=== PATIENT | female | born 1965 | race Caucasian/White ===

== ENCOUNTER 2022-04-13 08:14 | Observation (INO) ==
--- NOTE | 2022-03-19 12:03 | PAT Medication Instructions ---
Medication Instructions Date of Service March 19, 2022 Home Medications [facility] 1 dose QID Medical Marijuana Card 1 dose UD PRN ANXIETY/PAIN albuterol sulfate 90 mcg/actuation aerosol inhaler 1 inh inhalation UD PRN allergies bupropion HCl 300 mg 24 hr tablet, extended release 450 mg PO QAM buspirone 15 mg tablet 15 mg PO QAM buspirone 30 mg tablet 30 mg PO QAM clonazepam 1 mg tablet (Klonopin) 0.5 - 1 mg PO BID cyclosporine 0.05 % eye drops in a dropperette (Restasis) 1 drp ophthalmic (eye) BID dextroamphetamine-amphetamine 10 mg tablet (Adderall) 10 mg PO DAILY dextroamphetamine-amphetamine 30 mg tablet (Adderall) 30 mg PO QAM ergocalciferol (vitamin D2) 1,250 mcg (50,000 unit) capsule (Vitamin D2) 1,250 mcg PO DAILY erythromycin 5 mg/gram (0.5 %) eye ointment 1 applic ophthalmic (eye) BID fluticasone 250 mcg-salmeterol 50 mcg/dose blistr powdr for inhalation (Advair Diskus) 1 inh inhalation BID fluticasone propionate 50 mcg/actuation nasal spray,suspension (Flonase Allergy Relief) 1 spray intranasal QAM gabapentin 300 mg capsule 300 mg PO TID hydrochlorothiazide 25 mg tablet 25 mg PO QAM hydroxyurea 500 mg capsule 500 mg PO BID hydroxyzine HCl 25 mg tablet 25 mg PO TID PRN Anxiety loratadine 10 mg tablet (Claritin) 10 mg PO UD PRN allergies montelukast 10 mg tablet 10 mg PO QAM olopatadine 0.2 % eye drops 1 drp ophthalmic (eye) QAM pantoprazole 40 mg tablet,delayed release 40 mg PO QAM tizanidine 4 mg tablet 4 mg PO Q8H PRN muscle spasms trazodone 100 mg tablet 150 mg PO HS Take morning of surgery With a small sip of water, OTHERWISE NOTHING TO EAT OR DRINK AFTER MIDNIGHT: Insulin Dependent Diabetic Patients * Test your blood sugar the morning of surgery * If Blood Sugar is GREATER THAN 150, take HALF of your regular dose of: * If Blood Sugar is LESS THAN 150, DO NOT TAKE ANY: Other Notes If you have any questions please call us at [phone] or [phone] or [phone] or [phone]
--- NOTE | 2022-03-19 13:45 | PAT Medication Instructions ---
Medication Instructions Date of Service March 19, 2022 Home Medications Medical Marijuana Card 1 dose UD PRN ANXIETY/PAIN albuterol sulfate 90 mcg/actuation aerosol inhaler 1 inh inhalation UD PRN allergies bupropion HCl 300 mg 24 hr tablet, extended release 450 mg PO QAM ] buspirone 15 mg tablet 15 mg PO QAM buspirone 30 mg tablet 30 mg PO QAM clonazepam 1 mg tablet (Klonopin) 0.5 - 1 mg PO BID cyclosporine 0.05 % eye drops in a dropperette (Restasis) 1 drp ophthalmic (eye) BID dextroamphetamine-amphetamine 10 mg tablet (Adderall) 10 mg PO DAILY dextroamphetamine-amphetamine 30 mg tablet (Adderall) 30 mg PO QAM ergocalciferol (vitamin D2) 1,250 mcg (50,000 unit) capsule (Vitamin D2) 1,250 mcg PO DAILY erythromycin 5 mg/gram (0.5 %) eye ointment 1 applic ophthalmic (eye) BID fluticasone 250 mcg-salmeterol 50 mcg/dose blistr powdr for inhalation (Advair Diskus) 1 inh inhalation BID fluticasone propionate 50 mcg/actuation nasal spray,suspension (Flonase Allergy Relief) 1 spray intranasal QAM gabapentin 300 mg capsule 300 mg PO TID hydrochlorothiazide 25 mg tablet 25 mg PO QAM hydroxyurea 500 mg capsule 500 mg PO BID hydroxyzine HCl 25 mg tablet 25 mg PO TID PRN Anxiety loratadine 10 mg tablet (Claritin) 10 mg PO UD PRN allergies montelukast 10 mg tablet 10 mg PO QAM olopatadine 0.2 % eye drops 1 drp ophthalmic (eye) QAM pantoprazole 40 mg tablet,delayed release 40 mg PO QAM tizanidine 4 mg tablet 4 mg PO Q8H PRN muscle spasms trazodone 100 mg tablet 150 mg PO HS ASK your prescriber and surgeon hydroxyurea 500 mg capsule 500 mg PO BID DO NOT take the morning of surgery Medical Marijuana Card 1 dose UD PRN ANXIETY/PAIN dextroamphetamine-amphetamine 10 mg tablet (Adderall) 10 mg PO DAILY dextroamphetamine-amphetamine 30 mg tablet (Adderall) 30 mg PO QAM ergocalciferol (vitamin D2) 1,250 mcg (50,000 unit) capsule (Vitamin D2) 1,250 mcg PO DAILY hydrochlorothiazide 25 mg tablet 25 mg PO QAM hydroxyzine HCl 25 mg tablet 25 mg PO TID PRN Anxiety loratadine 10 mg tablet (Claritin) 10 mg PO UD PRN allergies tizanidine 4 mg tablet 4 mg PO Q8H PRN muscle spasms Take morning of surgery With a small sip of water, OTHERWISE NOTHING TO EAT OR DRINK AFTER MIDNIGHT: albuterol sulfate 90 mcg/actuation aerosol inhaler 1 inh inhalation UD PRN yany rgies (use if needed; please bring with you to hospital day of surgery if possible) bupropion HCl 300 mg 24 hr tablet, extended release 450 mg PO QAM buspirone 15 mg tablet 15 mg PO QAM buspirone 30 mg tablet 30 mg PO QAM clonazepam 1 mg tablet (Klonopin) 0.5 - 1 mg PO BID cyclosporine 0.05 % eye drops in a dropperette (Restasis) 1 drp ophthalmic (eye) BID erythromycin 5 mg/gram (0.5 %) eye ointment 1 applic ophthalmic (eye) BID fluticasone 250 mcg-salmeterol 50 mcg/dose blistr powdr for inhalation (Advair Diskus) 1 inh inhalation BID fluticasone propionate 50 mcg/actuation nasal spray,suspension (Flonase Allergy Relief) 1 spray intranasal QAM gabapentin 300 mg capsule 300 mg PO TID montelukast 10 mg tablet 10 mg PO QAM olopatadine 0.2 % eye drops 1 drp ophthalmic (eye) QAM pantoprazole 40 mg tablet,delayed release 40 mg PO QAM Take evening before surgery Medical Marijuana Card 1 dose UD PRN ANXIETY/PAIN (if needed) albuterol sulfate 90 mcg/actuation aerosol inhaler 1 inh inhalation UD PRN allergies (if needed) clonazepam 1 mg tablet (Klonopin) 0.5 - 1 mg PO BID cyclosporine 0.05 % eye drops in a dropperette (Restasis) 1 drp ophthalmic (eye) BID erythromycin 5 mg/gram (0.5 %) eye ointment 1 applic ophthalmic (eye) BID fluticasone 250 mcg-salmeterol 50 mcg/dose blistr powdr for inhalation (Advair Diskus) 1 inh inhalation BID gabapentin 300 mg capsule 300 mg PO TID hydroxyzine HCl 25 mg tablet 25 mg PO TID PRN Anxiety (if needed) loratadine 10 mg tablet (Claritin) 10 mg PO UD PRN allergies (if needed) tizanidine 4 mg tablet 4 mg PO Q8H PRN muscle spasms (if needed) trazodone 100 mg tablet 150 mg PO HS Other Notes If you have any questions please call us at [phone] or [phone] or [phone] or [phone]
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
[~2022-04-13 08:14] MED LIST: ACETAMINOPHEN 500 MG TAB PO SCH; BUPIVACAINE 0.5 % 5 MG/1 ML PF 10ML VIAL ONE; EPINEPHrine INJ 1 MG/ML AMP ONE; FAMOTIDINE 20 MG TAB PO SCH; LR 60ML/HR IV SCH; ROPIVACAINE 0.5% 5 MG/ML 30 ML VIAL ONE; ROPIVACAINE 0.5% HCL/PF 150 MG, BUPIVACAINE 0.75% MPF 20 ML, EPINEPHrine 0.15 MG, Ketor... INFIL SCH; Scopolamine 1 MG TDSY TD SCH; TRANEXAMIC ACID 1,000 MG **IV Intra-op IV SCH; TRANEXAMIC ACID 1,000 MG **IV Pre-op IV SCH; ceFAZolin 2000MG 2,000 MG/15 ML SYR IV SCH; dexAMETHasone 4 MG TAB PO SCH; traMADol HCL 50 MG TABLET PO SCH
[2022-04-13] MEDS ORDERED: HYDROmorphone INJ 1 MG/ML SYRINGE IV PRN (10:13)
[2022-04-13] MEDS ORDERED: ATROPINE SULFATE 0.1 MG/ML 10ML SYR IV PRN (10:13)
[2022-04-13] MEDS ORDERED: PROMETHAZINE HCL 12.5 MG in SODIUM CHLORIDE 0.9% 50 ML IV PRN (10:13)
[2022-04-13] MEDS ORDERED: ONDANSETRON INJ 2 MG/ML 2 ML VIAL IV PRN ×2 (10:13→15:31)
[2022-04-13] MEDS ORDERED: fentaNYL citrate 100 MCG/2 ML VIAL IV PRN (10:13)
[2022-04-13] MEDS ORDERED: ePHEDrine sulfate 50 MG/ML AMP IV PRN (10:13)
[2022-04-13] MEDS ORDERED: FLUMAZENIL 0.1 MG/1 ML 10 ML VIAL IV PRN (10:13)
[2022-04-13] MEDS ORDERED: NALOXONE HCL 0.4 MG/1 ML VIAL/CARP IV PRN ×2 (10:13→15:31)
[2022-04-13] MEDS ORDERED: LABETALOL HCL IV 5 MG/ML 20ML IV PRN (10:13)
[2022-04-13] MEDS ORDERED: MIDAZOLAM HCL 1 MG/ML 2ML VIAL ONE ×2 (10:27)
[2022-04-13] MEDS ORDERED: HYDROmorphone INJ 2 MG/ML SYR/VIAL ONE ×2 (10:27→12:16)
[2022-04-13] MEDS ORDERED: LIDOCAINE 2% MPF LOCAL 5 ML VIAL INFIL ONE (10:27)
[2022-04-13] MEDS ORDERED: DEXAMETHASONE SOD INJ 4 MG/ML VIAL ONE (10:27)
[2022-04-13] MEDS ORDERED: ONDANSETRON INJ 2 MG/ML 2 ML VIAL ONE (10:27)
[2022-04-13] MEDS ORDERED: PROPOFOL IV EMULSION 10 MG/ML 20 ML VIAL IV ONE ×2 (10:27→13:26)
--- NOTE | 2022-04-13 10:53 | History & Physical Bridge Note ---
Date of Service April 13, 2022 History & Physical Bridge Note I have examined the patient, reviewed the History & Physical and in the interval since the performance of the History & Physical I have noted the following changes of clinical significance: no changes noted Patient is aware of the risks, is asymptomatic, and tested negative for COVID- 19.
[2022-04-13] MEDS ORDERED: ORTHO JOINT ANESTHETIC ONE (10:59)
[2022-04-13] MEDS ORDERED: KETAMINE 50 MG/5 ML SYRINGE ONE (12:05)
[2022-04-13] MEDS ORDERED: LABETALOL HCL IV 5 MG/ML 20ML IV ONE (12:26)
[2022-04-13] MEDS ORDERED: ESMOLOL HCL INJ 10 MG/ML 10ML VIAL IV ONE (12:30)
[2022-04-13] MEDS ORDERED: DexMEDEtomidine HCL IV 100 MCG/ML VIAL IV ONE (13:35)
--- NOTE | 2022-04-13 13:52 | Post Operative Brief Note ---
Immediate Post Op Note v1 Date of Surgery April 13, 2022 Pre & Post Diagnosis Operation Date: 04/13/22 10:00 Pre-Op Diagnosis: Left Knee Osteoarthritis Post-Op Diagnosis: Left Knee Osteoarthritis I identified the patient and participated in the time-out.: Yes Procedure Operation Date: 04/13/22 10:00 Actual Procedures p Left Total Knee Arthroplasty(Left) - Bert Méndez MD Surgeon Bert Méndez MD Grain Receiver C ZENIA Bill (No fellow avail) Estimated Blood Loss 175 Findings Consistent with Post-Op Diagnosis Fluids 1300 cc Specimens Left knee contents Anesthesia Type General Regional Complications none
--- NOTE | 2022-04-13 13:53 | Operative Report ---
Post Operative Report Pre & Post Diagnosis Operation Date: 04/13/22 10:00 Pre-Op Diagnosis: Left Knee Osteoarthritis Post-Op Diagnosis: Left Knee Osteoarthritis I identified the patient and participated in the time-out.: Yes Procedure Operation Date: 04/13/22 10:00 Actual Procedures p Left Total knee replacement, imageless computer assisted navigation(Left) - Bert Méndez MD Surgeon Bert Méndez MD [employer] Art Teacher Sunny Bill PA-C (No fellow avail) Estimated Blood Loss 175 Findings See Below Examined Under Anesthesia: ROM -- There was 5 degrees to 120 degrees of flexion Ligamentous examination -- revealed stable Mayo, posterior drawer, varus and valgus stress at 5 and 30 degrees. [place] Grade IV changes of Patellofemoral and medial compartments, Grade II-III changes lateral femoral condyle. There was significant inflamed synovitis throughout the knee. Fluids 1300 cc Specimens Left knee contents Anesthesia Type General Regional Complications none Indications This is a 57-year-old female who has clinical and radiographic findings consistent with osteoarthritis of the a left knee. I recommended that a left total knee replacement be performed. The patient understands the risks of surgery, which include but not limited to: bleeding, infection, re-operation, damage to nerves and arteries, continued knee pain, knee stiffness, DVT, and . The patient understands all of these instructions and explanations, all of his questions have been satisfactorily addressed and the patient has elected to proceed. Informed consent was signed. Description of Procedure IMPLANTS: 1. Femur: Triathlon #4 Left PS. 2. Tibia: Triathlon #3 [place] with 12 x 50 mm stem. 3. Insert: Triathlon #3 x 11 mm PS X3 poly. 4. Patella: Triathlon A29 x 9 mm X3 poly. 5. Palacos cement. Sunny Bill PA-C is assisting with positioning, retracting, and closure due to fellow not available. Procedure: The patient was taken to the Operating Room and placed in the supine position after general and adductor canal nerve block was administered. My initials and a multidisciplinary time-out were used to identify the left leg as the correct operative limb. A tourniquet was placed high in the thigh. Prior to the incision, 2 grams of intravenous Ancef were given. The left leg was then prepped and draped in a standard sterile fashion. An Esmarch was used to exsanguinate the leg and the tourniquet was inflated to 250 mmHg. The planned mid-line 20 cm incision was created exposing the extensor mechanism. The medial parapatellar arthrotomy was made and the patella was everted. The patella was addressed first. It was prepared by reaming from 22 mm down to 11 mm. An A29 button was found to fit best. The peg holes were made in the standard fashion. The femur was addressed next and using computer assisted OrthoAlign with 3 degrees of flexion and 0 degrees of valgus, removing 10 mm in the standard fashi on for the distal cut. The cut was made and the 4-in-1 cutting block for a size 4 femur was placed. These cuts and the cuts to place the box were made in the standard fashion. The tourniquet was deflated due to venous tourniquet. Hemostasis was obtained. Our attention was then drawn to the tibia cut with using imageless computer assisted OrthoAlign, taking 2 mm from the medial low side. There was sufficient extension and flexion gap to fit a 11 mm spacer. A #3 Tibial baseplate fit well. A trial with a 11 mm spacer showed excellent stability in both flexion and extension, with good ligament balance, and thumbs free patellar tracking. Range of motion of 0-125 degrees. The tibial baseplate was prepped for the keel and stem. A stem was used due to some areas of soft bone, to avoid subsidence. All components were removed. All surfaces were copiously irrigated prior to placement of the components. The femoral component followed by Tibial baseplate were cemented in place and a 11 mm trial placed. Next, the patellar button was placed using the same cement. 90 ml of total knee cocktail were injected into the soft tissues and periosteum. Once the cement had cured, the range of motion and stability were unchanged. The 11 mm X3 poly was placed. Again the range of motion and stability were unchanged. The extensor mechanism was closed with 1-0 Vicryl and 0 Stratafix with the knee bent approximately 60 degrees in a standard fashion. The peritenon and deep fascia was closed with 2-0 Vicryl. The subcutaneous layer was closed with 3-0 Vicryl. The skin was closed with Zipline and shield. The limb was cleaned and dried. 4x4 dressing was placed over top followed by ABDs, sterile Webril, and a foot to thigh Hector bandage. The patient was then transferred to the Recovery Room in stable condition. The sponge and needle counts were correct. POST-OP INSTRUCTIONS: The patient will be WBAT. The patient will be admitted to the hospital and a [facility] pitalist consult was made for medical management. Labs will be obtained during the stay. DVT prophylaxis will included Eliquis 2.5 mm BID for 6 weeks, TEDs, and mechanical foot pumps. The dressing will be changed prior to their discharge or postop day #2 and covered with a Silverlon dressing, whichever comes first as long as the incision as dry. I attest to the content of the Intraoperative Record and any orders documented therein. Any exceptions are noted below.
--- NOTE | 2022-04-13 14:10 | Operative Report ---
Post Operative Report Pre & Post Diagnosis Operation Date: 04/13/22 10:00 Pre-Op Diagnosis: Left Knee Osteoarthritis Post-Op Diagnosis: Left Knee Osteoarthritis I identified the patient and participated in the time-out.: Yes Procedure Operation Date: 04/13/22 10:00 Actual Procedures p Left Total Knee Arthroplasty(Left) - Bert Samina Méndez MD Surgeon Dr. Lisa Méndez Library Manager Sunny Bill PA-C (No fellow avail) Estimated Blood Loss 175 Findings Consistent with Post-Op Diagnosis See operative report Specimens See operative report Drains None Complications None Disposition Accompanied Patient To Recovery: Yes Indications This 57-year-old female presented to the office complaints of persisting left knee pain. She had tried conservative care measures without improvement. She elected to proceed with surgical intervention after being educated about potential risks and outcomes. Preoperative imaging was obtained. Description of Procedure Patient was given a regional block and then taken to the operating room where she was given general anesthesia. She was prepped and draped in the usual sterile fashion. Please see Dr. Méndez's operative report for specifics of the procedure. I was present for the entire case from initial patient positioning through final wound closure. Assistance was provided in tissue retraction, hemostasis, trial implant placement, final implant placement, and final wound closure. Patient was taken to the recovery room in satisfactory condition. I attest to the content of the Intraoperative Record and any orders documented therein. Any exceptions are noted below.
--- NOTE | 2022-04-13 14:46 | XRay Report ---
TWO VIEWS LEFT KNEE CLINICAL HISTORY: Postoperative examination. FINDINGS: AP and crosstable lateral portable views of the left knee are obtained. A left knee arthrop lasty is in near anatomic alignment. There has been undersurface remodeling of the patella. No acute fracture is seen. There are expected postoperative changes around the knee including skin clips, soft tissue edema, and subcutaneous gas. IMPRESSION: Expected postoperative changes status post left knee arthroplasty. No acute fracture is s een. ACT 112: Negative or not required by law. Electronically signed by: Erlin Sage M.D. 04/13/2022 2:45 PM
--- NOTE | 2022-04-13 15:17 | Anesthesiology Progress Note ---
Date of Service April 13, 2022 Anesthesia Post Procedure Vital Signs Vital Signs: Temp Pulse Pulse Resp BP Pulse Ox O2 Del Method 04/13/22 15:05 37.3 C 79 15 126/72 92 Nasal Cannula 04/13/22 14:55 81 18 128/88 92 Nasal Cannula 04/13/22 14:45 80 14 119/83 93 Oxymask 04/13/22 14:35 81 20 127/86 92 Oxymask 04/13/22 14:25 79 15 143/78 H 92 Oxymask 04/13/22 14:15 77 15 137/92 91 Oxymask 04/13/22 14:07 37.2 C 77 83 18 136/78 92 Oxymask 04/13/22 09:02 36.6 C 83 18 138/98 96 Room Air 04/13/22 09:02 Room Air O2 Flow Rate 04/13/22 15:05 2 04/13/22 14:55 2 04/13/22 14:45 6 04/13/22 14:35 10 04/13/22 14:25 10 04/13/22 14:15 15 04/13/22 14:07 15 04/13/22 09:02 04/13/22 09:02 Pain Intensity Left Knee: Pain Intensity: 2 Transfer of Care Handoff Completed per policy Notes Mental Status: alert / awake / arousable Patient Amnestic to Procedure: Yes Nausea / Vomiting: adequately controlled Pain: adequately controlled Airway Patency, RR, SpO2: stable & adequate BP & HR: stable & adequate Hydration State: stable & adequate Anesthetic Complications: no major complications apparent
[2022-04-13] MEDS ORDERED: hydrOXYzine HCl 25 MG TAB PO PRN (15:31)
[2022-04-13] MEDS ORDERED: diphenhydrAMINE 50 MG/ML VIAL IV PRN (15:31)
[2022-04-13] MEDS ORDERED: bisacodyL 10 MG SUPP PR PRN (15:31)
[2022-04-13] MEDS ORDERED: ALBUTEROL HFA 8 GM INHALER INH PRN (15:31)
[2022-04-13] MEDS ORDERED: METOCLOPRAMIDE HCL INJ 5 MG/ML 2 ML VIAL IV PRN (15:31)
[2022-04-13] MEDS ORDERED: tiZANidine HCL 4 MG TABLET PO PRN (15:31)
[2022-04-13] MEDS ORDERED: ALUMINUM/MAGNESIUM SUSP 30 ML UDC PO PRN (15:31)
[2022-04-13] MEDS ORDERED: MAGNESIUM HYDROXIDE SUSP 30 ML UDC PO PRN (15:31)
[2022-04-13] MEDS ORDERED: Scopolamine CHECK PATCH PLACEMENT SCH (16:00)
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
[2022-04-13] MEDS: SODIUM CHLORIDE 0.9% 1000ML 1,000 ML IV SCH (16:50)
[2022-04-13] MEDS: KETOROLAC TROMETHAMINE 15 MG/ML VIAL IV SCH ×2 (16:50→22:02)
[2022-04-13] MEDS: FERROUS GLUCONATE 324 MG TAB PO SCH (16:51)
[2022-04-13] MEDS: ASCORBIC ACID 500 MG TAB PO SCH (16:51)
[2022-04-13] MEDS ORDERED: Nursing to Pharmacy Communication SCH (18:00)
[2022-04-13] MEDS ORDERED: AMPHETAMINE ASP/SULF/DEXTRAMPH 5 MG TAB PO SCH (18:00)
[2022-04-13] MEDS ORDERED: ALBUT/IPRATROP 3MG/0.5MG NEB 3 ML VIAL NEB SCH (19:00)
[2022-04-13] MEDS: ceFAZolin 2000MG 2,000 MG/15 ML SYR IV SCH (19:24)
[2022-04-13] MEDS: oxyCODONE HCL IR 5 MG TAB (IMMEDIATE RELEASE) PO PRN (19:24)
[2022-04-13] MEDS: HYDROXYUREA 500 MG CAP PO SCH (21:08)
[2022-04-13] MEDS: SENNA 8.6 MG TAB PO SCH (21:08)
[2022-04-13] MEDS: APIXABAN 2.5 MG TAB PO SCH (21:08)
[2022-04-13] MEDS: GABAPENTIN 300 MG CAP PO SCH (21:08)
[2022-04-13] MEDS: traZODone HCL 50 MG TAB PO SCH (21:08)
[2022-04-13] MEDS: clonazePAM 0.5 MG TAB PO SCH (21:08)
[2022-04-13] MEDS: ERYTHROMYCIN OP OINT 5 MG/GM 3.5 GM TUBE OP SCH (21:08)
[2022-04-13] MEDS: DOCUSATE SODIUM 100 MG CAP PO SCH (21:08)
[2022-04-13] MEDS: HYDROmorphone INJ 0.5 MG/0.5 ML SYR IV PRN (21:14)
[2022-04-13] MEDS: ACETAMINOPHEN 500 MG TAB PO SCH (22:03)
[2022-04-13] MEDS: NICOTINE 21 MG/24 HR TDSY TD SCH (22:34)
[2022-04-13] MEDS ORDERED: ALBUT/IPRATROP 3MG/0.5MG NEB 3 ML VIAL NEB PRN (23:43)
[2022-04-14] MEDS: SODIUM CHLORIDE 0.9% 1000ML 1,000 ML IV SCH (02:24)
[2022-04-14] MEDS: KETOROLAC TROMETHAMINE 15 MG/ML VIAL IV SCH ×2 (03:27→11:03)
[2022-04-14] MEDS: ACETAMINOPHEN 500 MG TAB PO SCH ×3 (03:28→20:56)
[2022-04-14] MEDS: ceFAZolin 2000MG 2,000 MG/15 ML SYR IV SCH (04:34)
[2022-04-14 06:19] LABS: Hematocrit (blood only) 28.5 % (37.0-47.0); Mean Corpuscular Hemoglobin 37.9 pg (25.0-34.0); Mean Corpuscular Hgb Conc 35.1 g/dL (32.0-36.0); Mean Platelet Volume 9.5 fL (9.4-12.4); Platelet Count 247 K/uL (130-400); RDW Coefficient of Variation 13.2 % (11.5-14.5); RDW Standard Deviation 52.1 fL (36.4-46.3); Red Blood Count 2.64 M/uL (4.20-5.40)
[2022-04-14 06:39] LABS: BUN Creatinine Ratio 14.3 (10-20); Calcium 8.6 mg/dl (8.5-10.1); Creatinine Clr Calc Pharmacy 74.3 ml/min; Est GFR (African American) 74.2 ml/min; Potassium 4.2 mmol/L (3.5-5.1)
[2022-04-14] MEDS ORDERED: dexAMETHasone 10 MG in SYRINGE 0 ML IV SCH (08:00)
[2022-04-14] MEDS: HYDROmorphone INJ 0.5 MG/0.5 ML SYR IV PRN (08:06)
[2022-04-14] MEDS: FERROUS GLUCONATE 324 MG TAB PO SCH ×2 (08:12→17:44)
[2022-04-14] MEDS: ASCORBIC ACID 500 MG TAB PO SCH ×2 (08:12→17:42)
[2022-04-14] MEDS: APIXABAN 2.5 MG TAB PO SCH ×2 (08:13→20:57)
[2022-04-14] MEDS: buPROPion XL 150 MG TABCR PO SCH (08:14)
[2022-04-14] MEDS: busPIRone 15 MG TAB PO SCH ×2 (08:14→08:15)
[2022-04-14] MEDS: DOCUSATE SODIUM 100 MG CAP PO SCH ×2 (08:16→20:57)
[2022-04-14] MEDS: FLUTICASONE PROPIONATE NA SPR 16 GM BTL NAE SCH (08:16)
[2022-04-14] MEDS: GABAPENTIN 300 MG CAP PO SCH ×3 (08:17→20:57)
[2022-04-14] MEDS: FLUTICASONE/VILANTEROL 200/25MCG 14 PUFFS/INHALER INH SCH (08:17)
[2022-04-14] MEDS: hydroCHLOROthiazide 25 MG TAB PO SCH (08:18)
[2022-04-14] MEDS: HYDROXYUREA 500 MG CAP PO SCH ×2 (08:18→20:57)
[2022-04-14] MEDS: PANTOprazole 40 MG TAB PO SCH (08:19)
[2022-04-14] MEDS: MONTELUKAST SODIUM 10 MG TABLET PO SCH (08:19)
[2022-04-14] MEDS: MULTIVITAMIN TAB PO SCH (08:19)
[2022-04-14] MEDS: TOPIRAMATE 25 MG TAB PO SCH (08:20)
--- NOTE | 2022-04-14 08:25 | Hospitalist Progress Note ---
Date of Service April 14, 2022 Assessment & Plan (1) Status post left knee replacement: Plan: POD# 1 S/P L TKA by Dr. Méndez 04/13/22 Pain control/bowel regimen/PT/OT per primary service DVT ppx advised for minimum of 14 days - drug choice/dose/duration at the discretion of primary * Agree with use of Eliquis 2.5mg BID given her h/o DVT in surgical leg WBC elevation likely from steroids, afebrile Hgb 13--> 10, acute blood loss anemia from surgery as well as dilutional from IVF * Of note, MCV> 100, does have hx myeloproliferative disorders, see below, but checked B12/folate for completeness * Folate low normal at 6, B12 low normal at 272 * B12 IM x1 then continue daily supp -- continue at d/c. Started supp and continue folate at d/c Use incentive spirometer q1h wa for atelectasis/pna prevention CM to assist with d/c planning -- possible d/c today vs tomorrow per patient discussion this morning (2) JAK2 gene mutation: Plan: JAK2 V6 217F Mutation suggestive of a myeloproliferative neoplasm Follows with [facility] in [place] Resume Hydrea 500mg BID Resume ASA 81mg daily once ok w/ primary On eliquis BID for DVT prevention as above (3) COPD (chronic obstructive pulmonary disease): Plan: Continues to smoke 3/4 ppd, counseled on importance of cessation Nicotine patch ordered No increased SOB/sputum production Faint wheezing, but 94% on RA Continue advair/albuterol prn Monitor (4) Bipolar disorder: Plan: H/o Bipolar D/o, fibromyalgia, depression, and anxiety Continue BuSpar, Klonopin, Gabapentin, Trazodone, and Wellbutrin (5) Seizure disorder: Plan: Continue Topamax 125mg daily (6) ADHD: Plan: Continue Adderall suspect worsens anxiety symptoms though, f/u PCP (7) HTN (hypertension): Plan: BP 129/78 Continue HCTZ Plan Thank you for allowing hospitalist service to participate in the care of Ms Rubio. Hospitalist service will sign off at this time. Rec to continue folate/b12 at discharge, added to med rec Please call with any questions/concerns Admission and Anticipated Discharge Date Admission Date: April 13, 2022 Supervising Physician Co-Signing Physician Notes PA Supervision Note: I did not personally see or examine the patient today, but I verified all shin points of AJITH Elam's assessment and plan with the following exceptions/additions: None Subjective eval around 11am, stating having increased pain and need for medication. she states she was up/ambulating and just did a lot with therapy and thinks maybe too much. No fever/chills/chest pain/shortness of breath. Does have occassional cough/end expiratory wheezing. Noted smoker, she thinks making her anxiety worse. She also is tearful about her son who works nearby and hasn't called or texted to check in on her after surgery. She take clonazepam BID -- 1mg at night and 0.5mg during the day. She already received her dose for today. To let us know if issues after pain addressed. She states she was seen by orthopedics this morning and they aren't sure if she will be going home today or tomorrow. She follows [facility] hematology for her JAK2 mutation/MDS. On hydroxyrea and she is to be on aspirin -- was told to hold for week after surgery. Rec f/u with them on timing to resume. She notes she was told about a medication to prevent blood clots, thinks maybe eliquis -- discussed ordered low dose BID for DVT prophylaxis and should f/u pcp and hematology regarding continuation of eliquis lifelong vs aspirin w/ her hydroxyurea. Questions/concerns addressed at this time. Review of Systems Review of Systems: All systems reviewed & are unremarkable except as noted in HPI & below Physical Exam Physical Exam: General: WD/WN obese female sitting up in bed, tearful as she hasn't heard from her son HEENT: head normocephalic, atraumatic, mmm, trachea midline Resp: faint end expiratory wheezing, bibasilar crackles, on room air, +cough (reports chronic, smoking) CV: RRR, calves nontender, pulses papable GI: +BS, slight distension, nontender : no boudreaux MSK/Neuro: dressing to LEFT knee c/d/i, NVI, pulses palpable Psych: AOx3, cooperative but tearful talking about her son who hasn't checked up on her Results & Data Results & Data ([facility]) Vital Signs (Past 12 Hours) Vital Signs Temp Pulse Resp BP Pulse Ox O2 Del Method 04/14/22 07:54 36.8 C 77 16 123/76 94 Room Air 04/14/22 02:25 36.6 C 80 18 112/68 96 Room Air 04/13/22 22:36 36.5 C 83 18 107/75 95 Room Air Laboratory Results 04/14/22 04/14/22 04/14/22 Range/Units 08:41 08:41 05:21 WBC (4.8-10.8) K/ul RBC (4.20-5.40) M/uL Hgb (12.0-16.0) g/dl Hct (37.0-47.0) % MCV (80.0-100.0) fL MCH (25.0-34.0) pg MCHC (32.0-36.0) g/dL RDW Std Deviation (36.4-46.3) fL RDW Coeff of Eden (11.5-14.5) % Plt Count (130-400) K/uL MPV (9.4-12.4) fL Sodium 135 L (136-145) mmol/L Potassium 4.2 (3.5-5.1) mmol/L Chloride 103 (98-107) mmol/L Carbon Dioxide 29 (21-32) mmol/L Anion Gap 3 (3-11) BUN 14 (6-23) mg/dl Creatinine 0.98 (0.6-1.2) mg/dl Est Cr Clr Drug Dosing 74.3 ml/min Est GFR ( Amer) 74.2 ml/min Est GFR (Non-Af Amer) 64.0 ml/min BUN/Creatinine Ratio 14.3 (10-20) Glucose 133 H (70-99(Fasting)) mg/dl Calcium 8.6 (8.5-10.1) mg/dl Magnesium (1.7-2.4) mg/dl Vitamin B12 272 (180-914) pg/ml Folate Cancelled 6.86 (>5.38) ng/ml 04/14/22 04/13/22 Range/Units 05:21 17:10 WBC 17.10 H (4.8-10.8) K/ul RBC 2.64 L (4.20-5.40) M/uL Hgb 10.0 L (12.0-16.0) g/dl Hct 28.5 L (37.0-47.0) % MCV 108.0 H (80.0-100.0) fL MCH 37.9 H (25.0-34.0) pg MCHC 35.1 (32.0-36.0) g/dL RDW Std Deviation 52.1 H (36.4-46.3) fL RDW Coeff of Eden 13.2 (11.5-14.5) % Plt Count 247 (130-400) K/uL MPV 9.5 (9.4-12.4) fL Sodium (136-145) mmol/L Potassium (3.5-5.1) mmol/L Chloride (98-107) mmol/L Carbon Dioxide (21-32) mmol/L Anion Gap (3-11) BUN (6-23) mg/dl Creatinine (0.6-1.2) mg/dl Est Cr Clr Drug Dosing ml/min Est GFR ( Amer) ml/min Est GFR (Non-Af Amer) ml/min BUN/Creatinine Ratio (10-20) Glucose (70-99(Fasting)) mg/dl Calcium (8.5-10.1) mg/dl Magnesium 1.9 (1.7-2.4) mg/dl Vitamin B12 (180-914) pg/ml Folate (>5.38) ng/ml PG Care Time/CCT Total # of Minutes Spent Total Time Spent with Patient: Total time spent is greater than 50% in coordination of care (as documented) at patient's floor/unit and/or counseling patient: Coding Level of Care Code 50265 SUB INP/OBS CARE 3/50MIN Diagnoses Status post left knee replacement Z96.652 JAK2 gene mutation Z15.89 COPD (chronic obstructive pulmonary disease) J44.9 Bipolar disorder F31.9 Seizure disorder G40.909 ADHD F90.9 HTN (hypertension) I10
--- NOTE | 2022-04-14 08:29 | Electrocardiogram Report ---
Test Reason : Blood Pressure : / mmHG Vent. Rate : 077 BPM Atrial Rate : 077 BPM P-R Int : 176 ms QRS Dur : 090 ms QT Int : 432 ms P-R-T Axes : 014 015 017 degrees QTc Int : 488 ms Normal sinus rhythm Prolonged QT Abnormal ECG When compared with ECG of 23-MAR-2022 16:37, Nonspecific ST abnormality no longer present Confirmed by River Quevedo ([id number]) on 04/14/2022 8:29:01 AM Referred By: Bert Méndez Confirmed By:River Quevedo
[2022-04-14] MEDS: clonazePAM 0.5 MG TAB PO SCH ×2 (08:40→20:56)
[2022-04-14] MEDS: AMPHETAMINE ASP/SULF/DEXTRAMPH 20 MG TAB PO SCH (08:40)
[2022-04-14] MEDS: ERYTHROMYCIN OP OINT 5 MG/GM 3.5 GM TUBE OP SCH ×2 (08:41→20:58)
[2022-04-14] MEDS ORDERED: AMPHETAMINE ASP/SULF/DEXTRAMPH 5 MG TAB PO SCH ×2 (09:00→15:00)
[2022-04-14] MEDS ORDERED: CYANOCOBALAMIN 1000 MCG/ML VIAL IM ONE (10:30)
[2022-04-14] MEDS: oxyCODONE HCL IR 5 MG TAB (IMMEDIATE RELEASE) PO PRN ×4 (11:08→22:40)
--- NOTE | 2022-04-14 11:47 | Orthopedic Progress Note ---
Date of Service April 14, 2022 Assessment & Plan (1) Osteoarthritis of left knee: Plan: POD #1 s/p L TKA, doing as well as expected. Resume diet. WBAT with walker. OOB to chair. Continue pain control. Check labs tomorrow. DVT prophylaxis: TEDs 3 weeks, foot pumps while in hospital, Eliquis 2.5 mg BID for 6 weeks. Appreciate Medicine input. PT/OT. D/C planning. Will re-check in the pm and see how she is doing and possible d/c home later today or tomorrow. Change dressing to Silverlon if incision is dry, prior to d/c or POD #2. Admission and Anticipated Discharge Date Admission Date: April 13, 2022 Subjective Doing better Physical Exam Physical Exam: LLE: BCR < 2 sec. Sensation to light touch intact distally. Wiggling ankle and toes. Actively extending her knee. Calf soft and non-tender. Dressing is clean, dry, intact. Results & Data ([facility]) Vital Signs (Past 12 Hours) Vital Signs Temp Pulse Resp BP Pulse Ox O2 Del Method 04/14/22 11:17 36.8 C 76 16 129/78 94 Room Air 04/14/22 07:54 36.8 C 77 16 123/76 94 Room Air 04/14/22 02:25 36.6 C 80 18 112/68 96 Room Air Laboratory Results Laboratory Results WBC 17.10 K/ul (4.8-10.8) H 04/14/22 05:21 RBC 2.64 M/uL (4.20-5.40) L 04/14/22 05:21 Hgb 10.0 g/dl (12.0-16.0) L 04/14/22 05:21 Hct 28.5 % (37.0-47.0) L 04/14/22 05:21 MCV 108.0 fL (80.0-100.0) H 04/14/22 05:21 MCH 37.9 pg (25.0-34.0) H 04/14/22 05:21 MCHC 35.1 g/dL (32.0-36.0) 04/14/22 05:21 RDW Std Deviation 52.1 fL (36.4-46.3) H 04/14/22 05:21 RDW Coeff of Eden 13.2 % (11.5-14.5) 04/14/22 05:21 Plt Count 247 K/uL (130-400) 04/14/22 05:21 MPV 9.5 fL (9.4-12.4) 04/14/22 05:21 Sodium 135 mmol/L (136-145) L 04/14/22 05:21 Potassium 4.2 mmol/L (3.5-5.1) 04/14/22 05:21 Chloride 103 mmol/L (98-107) 04/14/22 05:21 Carbon Dioxide 29 mmol/L (21-32) 04/14/22 05:21 Anion Gap 3 (3-11) 04/14/22 05:21 BUN 14 mg/dl (6-23) 04/14/22 05:21 Creatinine 0.98 mg/dl (0.6-1.2) 04/14/22 05:21 Est Cr Clr Drug Dosing 74.3 ml/min 04/14/22 05:21 Est GFR ( Amer) 74.2 ml/min 04/14/22 05:21 Est GFR (Non-Af Amer) 64.0 ml/min 04/14/22 05:21 BUN/Creatinine Ratio 14.3 (10-20) 04/14/22 05:21 Glucose 133 mg/dl (70-99(Fasting)) H 04/14/22 05:21 Calcium 8.6 mg/dl (8.5-10.1) 04/14/22 05:21 Magnesium 1.9 mg/dl (1.7-2.4) 04/13/22 17:10 Vitamin B12 272 pg/ml (180-914) 04/14/22 08:41 Folate 6.86 ng/ml (>5.38) 04/14/22 08:41 Folate Cancelled 04/14/22 08:41 SARS-CoV-2, RNA, NAAT NEGATIVE (NEGATIVE) 04/13/22 08:38 Impressions Knee X-Ray 04/13/22 14:24 TWO VIEWS LEFT KNEE CLINICAL HISTORY: Postoperative examination. FINDINGS: AP and crosstable lateral portable views of the left knee are obtained. A left knee arthroplasty is in near anatomic alignment. There has been undersurface remodeling of the patella. No acute fracture is seen. There are expected postoperative changes around the knee including skin clips, soft tissue edema, and subcutaneous gas. IMPRESSION: Expected postoperative changes status post left knee arthroplasty. No acute fracture is seen. ACT 112: Negative or not required by law. Electronically signed by: Erlin Sage M.D. 04/13/2022 2:45 PM
[2022-04-14] MEDS: traZODone HCL 50 MG TAB PO SCH (20:57)
[2022-04-14] MEDS: SENNA 8.6 MG TAB PO SCH (20:58)
[2022-04-14] MEDS: cycloSPORINE (RESTASIS) OP SCH (22:12)
[2022-04-15] MEDS: oxyCODONE HCL IR 5 MG TAB (IMMEDIATE RELEASE) PO PRN ×3 (03:27→12:38)
[2022-04-15] MEDS: ACETAMINOPHEN 500 MG TAB PO SCH (05:09)
[2022-04-15] MEDS: FERROUS GLUCONATE 324 MG TAB PO SCH (07:59)
[2022-04-15] MEDS: ASCORBIC ACID 500 MG TAB PO SCH (07:59)
[2022-04-15] MEDS: AMPHETAMINE ASP/SULF/DEXTRAMPH 20 MG TAB PO SCH (08:00)
[2022-04-15] MEDS: APIXABAN 2.5 MG TAB PO SCH (08:01)
[2022-04-15] MEDS: busPIRone 15 MG TAB PO SCH ×2 (08:02→08:03)
[2022-04-15] MEDS: buPROPion XL 150 MG TABCR PO SCH (08:02)
[2022-04-15] MEDS: clonazePAM 0.5 MG TAB PO SCH (08:03)
[2022-04-15] MEDS: cycloSPORINE (RESTASIS) OP SCH (08:05)
[2022-04-15] MEDS: DOCUSATE SODIUM 100 MG CAP PO SCH (08:06)
[2022-04-15] MEDS: PANTOprazole 40 MG TAB PO SCH (08:06)
[2022-04-15] MEDS: TOPIRAMATE 25 MG TAB PO SCH (08:07)
[2022-04-15] MEDS: ERYTHROMYCIN OP OINT 5 MG/GM 3.5 GM TUBE OP SCH (08:11)
[2022-04-15] MEDS: FLUTICASONE/VILANTEROL 200/25MCG 14 PUFFS/INHALER INH SCH (08:11)
[2022-04-15] MEDS: FLUTICASONE PROPIONATE NA SPR 16 GM BTL NAE SCH (08:11)
[2022-04-15] MEDS: GABAPENTIN 300 MG CAP PO SCH (08:12)
[2022-04-15] MEDS: MONTELUKAST SODIUM 10 MG TABLET PO SCH (08:13)
[2022-04-15] MEDS: MULTIVITAMIN TAB PO SCH (08:13)
[2022-04-15] MEDS: hydroCHLOROthiazide 25 MG TAB PO SCH (08:13)
[2022-04-15] MEDS: NICOTINE 21 MG/24 HR TDSY TD SCH (08:14)
[2022-04-15] MEDS: HYDROXYUREA 500 MG CAP PO SCH (08:16)
[2022-04-15] MEDS ORDERED: FOLIC ACID 1 MG TAB PO SCH (09:00)
[2022-04-15] MEDS ORDERED: OLOPATADINE HCL OP SCH (09:00)
[2022-04-15] MEDS ORDERED: ASPIRIN 81 MG ECTAB PO SCH (09:00)
[2022-04-15] MEDS ORDERED: CYANOCOBALAMIN (B-12) 500 MCG TABLET PO SCH (09:00)
--- NOTE | 2022-04-15 11:22 | Orthopedic Progress Note ---
Date of Service April 15, 2022 Assessment & Plan (1) Status post left knee replacement: Plan: Patient was evaluated in her room today. Her postsurgical dressings were removed. There is scant dried blood on the most inner dressings. She has no active bleeding at this time. Expected postoperative edema. No erythema or warmth. Paige are intact. Wound edges are well approximated. A new Silverlon dressing was applied by me. She may get the dressings wet in the shower starting tomorrow. Avoid scrubbing. Avoid soaking. If it should come off, she will call the office for an appointment to place a new 1. Importance of getting out of bed and being ambulatory was discussed at length with her. She will participate in PT and OT today and then be discharged to home with home health services. Prescriptions for Eliquis 2.5 mg twice daily x6 weeks and o xycodone 5 mg every 6 hours were sent to her pharmacy. She will also obtain vitamin C and iron as well as B12. Written instructions were provided. Continue with ice and elevation for edema control. Importance of wearing her JAVI hose was discussed with her. Follow-up in the office in 2 weeks as scheduled for staple removal. Call the office with any other concerns. Admission and Anticipated Discharge Date Admission Date: April 13, 2022 Subjective Patient is seen in her room this morning. She states her knee pain has been increased since yesterday. She also notes that she is not able to perform straight leg raise today, which she was able to do yesterday. She has been controlling her pain adequately with oral pain medication. She denies any abdominal pain, chest pain, or shortness of breath. No nausea or vomiting. Physical Exam Physical Exam: General: Well-developed, well-nourished, middle-aged female, in no acute distress. Sitting in bed eating breakfast. Alert and oriented. Conversive. Skin: Warm and dry with good turgor. She does have some ecchymosis developing on the left upper thigh, likely from her tourniquet. Skin prep is still in present. Postsurgical dressings are in place. They are dry. Musculoskeletal: Patient has intact motor function of her ankle and toes. She is able to fire her quad but does not have enough strength to do a straight leg raise. She is able to flex her knee about 30 degrees secondary to her surgical dressings. No discomfort with logrolling of her hip. Neurologic: Gross sensation is intact across the left leg by soft touch. Peripheral pulses are 2+. Results & Data ([facility]) Vital Signs (Past 12 Hours) Vital Signs Temp Pulse Resp BP Pulse Ox O2 Del Method 04/15/22 07:47 Room Air 04/15/22 07:42 36.5 C 93 H 16 160/90 H 97 Room Air
== END 2022-04-15 13:38 | disposition home health service (06) ==
LOC: 3E 08:14 → ASU 08:14

== ENCOUNTER 2023-10-20 14:05 | Inpatient (IN) ==
[2023-10-20 15:12] LABS: Appearance Urine Turbid (Clear); Bacteria Urine Automated None Seen (None Seen); Bilirubin Urine Negative (Negative); Blood Urine Negative (Negative); Cast Urine Automated 0-2 /lpf (0-2); Color Urine Dark Yellow; Glucose Urine UA Negative (Negative); Ketones Urine Trace (Negative); Leukocyte Esterase Urine Trace (Negative); Nitrite Urine Negative (Negative); Protein Urine Trace (Negative); RBC Urine Automated 0-2 /hpf (0-2); Specific Gravity Urine 1.027 (1.000-1.030); Urobilinogen Urine Negative (Negative); WBC Urine Automated 0-5 /hpf (0-5); pH Urine 6.5 (4.5-7.5)
[2023-10-20 15:21] LABS: Basophils # (auto) 0.04 K/uL (0.00-0.20); Basophils % (auto) 0.5 %; Eosinophils # (auto) 0.18 K/uL (0.00-0.50); Eosinophils % (auto) 2.1 %; Hemoglobin 10.8 g/dl (12.0-16.0); Immature Granulocytes # (auto) 0.02 K/uL (0.01-0.20); Immature Granulocytes % (auto) 0.2 %; Lymphocytes # (auto) 2.42 K/uL (1.20-3.40); Lymphocytes % (auto) 28.9 %; Mean Corpuscular Hemoglobin 36.7 pg (25.0-34.0); Mean Corpuscular Hgb Conc 33.8 g/dL (32.0-36.0); Mean Corpuscular Volume 108.8 fL (80.0-100.0); Mean Platelet Volume 9.3 fL (9.4-12.4); Monocytes # (auto) 0.37 K/uL (0.11-0.59); Monocytes % (auto) 4.4 %; Neutrophils # (auto) 5.35 K/uL (1.40-6.50); Neutrophils % (auto) 63.9 %; Platelet Count 362 K/uL (130-400); RDW Coefficient of Variation 13.2 % (11.5-14.5); Red Blood Count 2.94 M/uL (4.20-5.40); White Blood Count 8.38 K/ul (4.8-10.8)
[2023-10-20 15:34] LABS: Acetaminophen < 3 ug/ml (10-30); Salicylate < 3.0 mg/dl (3.0-30)
[2023-10-20 15:43] LABS: Albumin Globulin Ratio 1.7 (0.9-2); Albumin Level 3.9 gm/dl (3.4-5.0); BUN Creatinine Ratio 18.2 (10-20); Bilirubin,Total 0.3 mg/dl (0.2-1.0); Calcium 8.9 mg/dl (8.6-10.3); Est GFR (African American) 83.9 ml/min; Est GFR (Non-African American) 72.4 ml/min; Globulin 2.3 gm/dl (2.5-4.0); Potassium 3.7 mmol/L (3.5-5.1); Total Protein 6.2 gm/dl (6.0-8.3)
[2023-10-20 15:58] LABS: Thyroid Stimulating Hormone 0.358 uIu/ml (0.300-4.500)
[2023-10-20] MEDS: LORazepam 1 MG TAB PO STA ×2 (16:00→19:21)
[2023-10-20 16:01] LABS: Amphetamines+Metham, Urine Pos (Neg); Barbiturates, Urine Neg (Neg); Benzodiazepine, Urine Pos (Neg); Cocaine, Urine Neg (Neg); Fentanyl, Urine Neg (Neg); MDMA (Ecstacy), Urine Pos (Neg); Marijuana, Urine Pos (Neg); Methadone, Urine Neg (Neg); Opiate, Urine Neg (Neg); Phencyclidine, Urine Neg (Neg)
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
[2023-10-20] MEDS: ACETAMINOPHEN 500 MG TAB PO STA (17:49)
[2023-10-20] MEDS: NICOTINE 14 MG/24 HR PATCH TD ONE (17:50)
[2023-10-20] MEDS ORDERED: SODIUM CHLORIDE 0.65% NA SOLN 45 ML (OCEAN) PRN (21:56)
[2023-10-20] MEDS ORDERED: ALUMINUM/MAGNESIUM SUSP 30 ML UDC PO PRN (21:56)
[2023-10-20] MEDS ORDERED: BISMUTH SUBSALICYLATE LIQD 236 ML PO PRN (21:56)
[2023-10-20] MEDS: HYDROXYUREA 500 MG CAP PO STA (22:32)
[2023-10-20] MEDS: traZODone HCL 50 MG TAB PO STA (22:32)
[2023-10-20] MEDS: clonazePAM 0.5 MG TAB PO STA (22:32)
--- OUTSIDE RECORDS SUMMARY | 2023-10-21 01:13 | External Medical Summary | Summary of Care ---
Author Name Unknown Organization [facility] Address [address] [place] [address] Phone [phone] Care Team Providers Care Rehabilitation Clerk Name Role Phone KenjiBassam Primary Care Provider [phone] Encounter Details Date Type Department Care Team ([facility] Contact Info) Description 10/13/2023 Documentation Occupational Therapy [address] [place] [address] Margaret Reyes, OT [address] [place] [address] Allergies Active Allergy Reactions Criticality Noted Date Comments Adhesive Tape Rash 10/11/2016 Fluconazole 08/12/2021 Latex Rash 10/12/2010 Nystatin 04/04/2017 Skin/facial discoloration documented as of this encounter (statuses as of 10/13/2023) Medications Medication Sig Dispensed Refills Start Date End Date Status Spacer/Aero-Holdin g Chambers ZONIA Use with inhaler. 1 Device 0 12/16/2014 Active traZODone (DESYREL) 100 MG Tablet Take 1 Tablet by mouth at bedtime. 2 11/21/2015 Active Mometasone Furo-Formoterol Fum (DULERA) 200-5 MCG/ACT Inhaler Inhale 2 Puffs by mouth 2 times a day. 1 Inhaler 5 12/24/2015 Active Gabapentin 600 MG TabletIndications: Fibromyalgia TAKE 1 TABLET BY MOUTH 3 TIMES A DAY. 90 Tab 5 01/07/2016 Active methocarbamol (ROBAMOL) 500 MG Tablet TAKE 3 TABLETS BY MOUTH 4 TIMES A DAY NEEDED 360 Tab 5 02/10/2016 Active amphetamine-dextro amphet ER (ADDERALL XR) 30 MG [id number]:AD HD (attention deficit hyperactivity disorder), combined type Take 1 Cap by mouth daily. JulyJune 05 30 Cap 04/23/2016 Active cetirizine (ZYRTEC) 10 MG TabletIndications: Allergic conjunctivitis, left TAKE 1 TABLET BY MOUTH DAILY. 30 Tab 5 05/05/2016 Active fluticasone (FLONASE) 50 MCG/ACT nasal spray Administer 2 Sprays into each nostril daily. 1 Inhaler 5 05/19/2016 Active VENTOLIN HFA 108 (90 BASE) MCG/ACT inhalerIndications :Sinobronchitis INHALE 1-2 PUFFS EVERY 4-6 HOURS NEEDED FOR DIFFICULTY BREATHING 18 Inhaler 2 08/26/2016 Active DIPHENHIST 25 MG Capsule TAKE 1 CAPSULE BY MOUTH EVERY 4 HOURS NEEDED 5 09/06/2016 Active doxepin (SINEQUAN) 25 MG CapsuleIndications :patient only taking at night Indications: patient only taking at night 2 09/29/2016 Active clonazePAM (KLONOPIN) 1 MG Tablet 1/2 tablet in the am and 1 tablet at bedtime 1 10/17/2016 Active promethazine (PHENERGAN) 25 MG Tablet Take 1 Tablet by mouth in the morning. 10/28/2016 Active montelukast (SINGULAIR) 10 MG Tablet TAKE 1 TABLET BY MOUTH DAILY. 30 Tab 11 01/31/2017 Active losartan-hctz 100-25 mg per tab (HYZAAR) 100-25 MG per tablet TAKE 1 TABLET BY MOUTH DAILY. 30 Tab 5 03/01/2017 Active escitalopram (LEXAPRO) 20 MG Tablet Take 1 Tab by mouth daily. 0 08/17/2017 Active DULoxetine (CYMBALTA) 30 MG CPEP TAKE 1 CAPSULE BY MOUTH EVERY DAY Active benzonatate (TESSALON PERLES) 100 MG Capsule benzonatate 100 mg capsule Active cyclobenzaprine (FLEXERIL) 5 MG Tablet cyclobenzaprine 5 mg tablet Active dicyclomine (BENTYL) 20 MG Tablet dicyclomine 20 mg tablet Active ibuprofen (MOTRIN) 600 MG Tablet ibuprofen 600 mg tablet Active naproxen (NAPROSYN) 500 MG Tablet naproxen 500 mg tablet Active lidocaine-prilocai ne (EMLA) 2.5-2.5 % cream lidocaine-prilocaine 2.5 %-2.5 % topical cream Active Polyethyl Glycol-Propyl Glycol (SYSTANE) 0.4-0.3 % ophthalmic solution Instill into eye as needed for Dry eyes. Active cloNIDine (CATAPRES) 0.1 MG Tablet 04/24/2018 Active methocarbamol (ROBAMOL) 750 MG Tablet 09/28/2018 Active ARIPiprazole 5 MG Oral Tablet (Abilify) TAKE 1 TABLET BY MOUTH EVERYDAY AT BEDTIME 11/03/2021 Active busPIRone HCl 15 MG Oral Tablet (Buspar) Take by mouth 15 mg in the morning. 10/10/2021 Active busPIRone HCl 30 MG Oral Tablet TAKE 1 TABLET BY MOUTH EVERY DAY IN THE MORNING 10/10/2021 Active buPROPion HCl ER (XL) 150 MG Oral Tablet Extended Release 24 Hour (Wellbutrin XL) TAKE 1 TABLET BY MOUTH DAILY WITH A BUPROPION HCL XL 300 MG TABLET TO EQUAL 450 MG DAILY 10/10/2021 Active Erythromycin 5 MG/GM Ophthalmic Ointment Instill 0.25 Inches into both eyes at bedtime. 3.5 g 12 07/05/2023 Active Tyrvaya 0.03 MG/ACT Nasal Solution (Varenicline Tartrate) Administer 1 [place] into nostril in the morning and 1 [place] before bedtime. 4.2 mL 6 07/05/2023 Active Miebo 1.338 GM/ML Ophthalmic Solution (Perfluorohexyloct ane) Instill 1 Drop into eye in the morning and 1 Drop at noon and 1 Drop in the evening and 1 Drop before bedtime. 3 mL 12 07/05/2023 Active documented as of this encounter (statuses as of 10/13/2023) Active Problems Problem Noted Date Diagnosed Date Other specified postprocedural states 10/05/2023 ASCUS with positive high risk HPV cervical 10/25 Vaginal atrophy 10/25/2022 Medical marijuana use 01/15/2019 Drug dependence, in remission 01/16/2016 Depression, major, recurrent, in partial remissi on 03/30/2015 ADHD (attention deficit hype ractivity disorder), combined type 02/20/2015 Fibromyalgia 10/25/2013 CTS (carpal tunnel syndrome) 03/25/2011 Liver hematoma and contusion without mention of open wound into cavity 10/27/2010 Lumbago 07/24/2007 Sprain, lumbosacral 07/09/2007 documented as of this encounter (statuses as of 10/13/2023) Immunizations Name Administration Dates Next Due Pneumococcal Conjugate Vacc, 13 Valent (Prevnar) 03/10/2015 Pneumococcal Polysaccharide PPV23 (Pneumovax) Seasonal Influenza, Quadrivalent, No Preserve, I M 12/18/2015,03/10/2015 TDAP (age 10 and older)(Boostrix) 10/15/2013 documented as of this encounter Social History Tobacco Use Types Packs/Day Years Used Date Smoking Tobacco: Every Day Cigarettes 0.5 15 Smokeless Tobacco: Never Alcohol Use Standard Drinks/Week Comments Yes 0 (1 standard drink = 0.6 oz pur e alcohol) occ Utilities Answer Date Recorded Do you have trouble paying y our heating, water, or electric bill? (Adult - for ages 18 years and over) Not on file 08/23/2023 Is your family able to pay t he heat, water, or electric bill? (Household - for ages 0-17 years) Not on file 08/23/2023 Does your family have access to good internet? (Household - for ages 0-17 years) Not on file 08/23/2023 Social Connections Answer Date Recorded How often do you feel lonely or isolated from those around you? (Adult - for ages 18 years and over) Not on file 08/23/2023 Sex and Gender Information Value Date Recorded Sex Assigned at Not on file Gender Identity Not on file Sexual Orientation Not on file Job Start Date Occupation Industry Not on file Not on file Not on file documented as of this encounter Progress Notes * Margaret Reyes, OT - 10/13/2023 3:51 PM EDT PROGRESS NOTE - Occupational Therapy Service [address] [address] Option 2 Name: Yelena Rubio Date: 10/13/2023 Time: 3:51 PM Patient called this afternoon stating she was seen at her PCP office in [place] yesterday afternoon to address her hand pain. She reports her hand swelling has increased since yesterday and the nurse she saw in the office told her not to wear her edema glove or brace. She reports they ordered her Prednisone. She also reports a stabbing pain in her hand and reports her bruising has increased. She currently has no orthopaedic provider, therefore, she was instructed to call her PCP to request aorthopaedic referral to address her hand pain. She will call her PCP with any additional questions or concerns. Margaret Reyes OTR/L 10/13/2023 documented in this encounter Plan of Treatment Upcoming Encounters Date Type Department Care Team ([facility] st Contact Info) Description 10/21/2023 9:30 AM EDT Rehab Services Occupational [address] [address] Margaret Reyes, OT [address] [place] [address] 10/25/2023 10:45 AM EDT Rehab Services [address] [address] Margaret Reyes, OT [address] [place] [address] 10/25/2023 1:00 PM EDT Office Visit [facility] [address] [place] [address] [place] [address] Christiano Shields DO [address] [facility] [place] [address] Photographer Ayala [place] [address] [place] [address] 10/27/2023 9:15 AM EDT Rehab Services Occupational [place] [address] [place] [address] [place] [address] [place] [address] 11/01/2023 10:45 AM EDT Rehab Services [address] [address] Margaret Reyes, OT [address] [place] [address] 11/03/2023 9:15 AM EDT Rehab Services [address] [address] Margaret Reyes, OT [address] [place] [address] 11/08/2023 9:15 AM EDT Rehab Services [address] [address] Margaret Reyes, OT [address] [place] [address] 11/10/2023 9:15 AM EDT Rehab Services [address] [address] Margaret Reyes, OT [address] [place] [address] 11/14/2023 2:45 PM EDT Imaging [address] [address] 11/15/2023 9:15 AM EDT Rehab Services [address] [address] Margaret Reyes, OT [address] [place] [address] 11/17/2023 9:15 AM EDT Rehab Services [address] [address] [place] [address] [place] [address] 11/22/2023 9:15 AM EDT Rehab Services [address] [address] [place] [address] [place] [address] 11/24/2023 9:15 AM EDT Rehab Services [address] [address] Margaret Reyes, OT [address] [place] [address] 11/29/2023 9:15 AM EDT Rehab Services [address] [address] Margaret Reyese, OT [address] [place] [address] 12/01/2023 9:15 AM EDT Rehab Services [address] [address] Eric Margaret Heather, OT [address] [place] [address] 01/10/2024 2:00 PM EST Office Visit Optometry, [place] [address] [place] [address] Parminder Joyner, ADAN [address] [place] [address] Health Maintenance Due Date Last Done Comments Lipid Panel 1965 Cologuard 2010 Colonoscopy 2010 Sigmoidoscopy 2010 Zoster Vaccines (1 of 2) 2015 Mammogram 03/14/2016 03/14/2015, 03/27/2014 Depression Monitoring 06/10/2016 06/11/2015 Colorectal Cancer Screening 01/25/2017 Fecal Occult Blood Test 01/25/2017 01/26/2016 COVID-19 Vaccine ( season) 2022 11/26/2021, 08/27/2021, 02/19/2021, Additional history exists DTaP,Tdap,and Td Vaccines (2 - Td or Tdap) 10/16/2023 10/15/2013 Influenza Vaccine (FLU shot) (#1) 2023 11/24/2022, 11/26/2021, 12/31/2019, Additional history exists Pap Smear 07/14/2025 07/14/2022 Diabetes Screening 07/13/2026 07/14/2023, 1 , 01/26/2016, Additional history exists Cervical Cancer Screening 07/15/2027 HPV/Co-Test 07/15/2027 07/14/2022 Hepatitis B Vaccine Completed 02/07/2014, 09/11/2013, 07/25/2013 Pneumococcal Vaccine: Pediatrics (0 to 5 Years) and At-Risk Patients (6 to 64 Years) Completed 02/17/2022, 03/10/2015, 10/15/2013 HPV (Gardasil) Vaccine Aged Out No lo nger eligible based on patient's age to complete this topic MENINGOCOCCAL (MENACTRA/MENVEO) Aged Out No longer eligible based on patient's age to complete this topic documented as of this encounter Medical Devices Not on filedocumented as of this encounter Advance Directives * Full Code (Latest Code Status on File) Date Activated Date Inactivated Comments 10/14/2010 3:18 PM 10/17/2010 8:27 PM Question Answer Comments Discussion of Advance Directives occurred with: Patient Does the patient have a Living Will? No Does the patient have Health Care Power of Attor vahid? No * Full Code Date Activated Date Inactivated Comments 10/12/2010 5:43 AM 10/12/2010 5:44 AM This order ref lects the patients wishes and were consensually agreed upon. * Full Code Date Activated Date Inactivated Comments 10/12/2010 5:19 AM 10/12/2010 5:43 AM This order ref lects the patients wishes and were consensually agreed upon. Question Answer Comments Discussion of Advance Directives occurred with: Patient Care Teams Rehabilitation Clerk Relationship Specialty Start Date End Date Bassam Phillip DO [address] [address] [place] [address] PCP - General Family Medicine 09/23/23 documented as of this encounter
--- OUTSIDE RECORDS SUMMARY | 2023-10-21 01:14 | External Medical Summary | Summary of Care ---
Author Name Unknown Organization [facility] Address [address] [place] [address] Phone [phone] Care Team Providers Care Music Cataloguer Name Role Phone KenjiBassam DO Primary Care Provider [phone] Reason for Visit * Reason Onset Date Comments FYI 10/11/2023 Encounter Details Date Type Department Care Team (Late st Contact Info) Description 10/11/[address] [facility] [address] [place] [address] Henry Edgar MD [address] [place] [address] FY Allergies Active Allergy Reactions Criticality Noted Date Comments Adhesive Tape Rash 10/11/2016 Fluconazole 08/12/2021 Latex Rash 10/12/2010 Nystatin 04/04/2017 Skin/facial discoloration documented as of this encounter (statuses as of 10/12/2023) Medications Medication Sig Dispensed Refills Start Date [...] amphetamine-dextro amphet ER (ADDERALL XR) 30 MG [id number] HD (attention deficit hyperactivity disorder), combined type [...] MG/ACT Nasal Solution (Varenicline Tartrate) Administer 1 [place] into nostril in the morning and 1 [place] before bedtime. 4.2 mL 6 07/05/2023 Active Miebo 1.338 GM/ML Ophthalmic Solution (Perfluorohexyloct ane) Instill 1 Drop into eye in the morning and 1 Drop at noon and 1 Drop in the evening and 1 Drop before bedtime. 3 mL 12 07/05/2023 Active documented as of this encounter (statuses as of 10/12/2023) Active Problems Problem Noted Date Diagnosed Date [...] as of this encounter (statuses as of 10/12/2023) Immunizations Name Administration Dates Next Due Pneumococcal [...] on file documented as of this encounter Miscellaneous Notes * Telephone Encounter - MateHenry huang MD - 10/12/2023 1:37 PM EDT I received a call from the patient and returned it today. She did have an electrodiagnostic study done 2 days ago which involved stimulation of the median ulnar and radial nerves in the left hand andneedle EMG of the left 1st dorsal interosseous abductor pollicis brevis and abductor digiti minimi muscles. The procedure was painful and was terminated after the 1st 3 muscles were evaluated There was no obvious bleeding or swelling at the time she left the office I did express apologies for the pain of the procedure and gave her 3 copies of the typed report andsent one to her primary care physician The study was done because of pain in the ulnar aspect of the left hand extending into all aspects of the dorsal surface of her left hand and occurred after a complex crush injury and finger fracturerequiring open reduction internal fixation ten weeks previously. The study had been requested by her primary care physician I did not have any information regarding her case prior to the study other than the history obtained directly from her My examination showed some altered sensation over the dorsal aspect of left hand some pain to pressure over the hand with no real muscle weakness or atrophy prior to performing study The patient was receiving physical therapy and kmzi-qxl-[id number] analgesics. I question whether she had been given gabapentin and she informed me that she could not tolerate the drug. I did not offer a prescription for pain management as I was only involved in her care to perform a diagnostic examination She now tells me that she has had increased swelling and bruising of the hand that she can not touch the ulnar aspect of the hand and that the pain is severe and unremitting she has visit a local emergency room has been given a pain shot and has been told to ice her hand and take ibuprofen and Tylenol I did offer to look at the hand this coming Tuesday when I am next back in the office but she statedthat she no longer wanted to have contact with me and held me responsible for making her pain worseand doing her harm I explained to her that sometimes after needle EMG there is some delayed hemorrhage in the soft tissues of the hand and the with ice and analgesia this aspect of the pain should resolve within several days to a week Unfortunately without being able to evaluate the hand by direct observation I could not assess the degree of swelling and hemorrhage but would assume that the physicians who evaluated her in the emergency room do not feel that any further surgical intervention or drainage procedure was required Again without documentation of their visit and notes I can not corroborate the above assumption I advised her that if she would not allow me to look at the extremity she should return to the physician who ordered the initial study or the surgeon who performed the initial procedure for reassessment Henry Edgar MD * Telephone Encounter - Jessica Hennessy OSA - 10/11/2023 5:04 PM EDT Good evening Received a call from Yelena patient called crying and upset that her left hand is now bruised fromthe EMG that was performed yesterday. She stated that she cannot move her hand at all, and the painis excruciating. The number to called Yelena is [phone] if you have any questions, or advise for the patient. Thank you. CONSTANZA Lombardi documented in this encounter Plan of Treatment Upcoming Encounters Date Type Department Care Team ([facility] st Contact Info) Description 10/21/2023 9:30 AM EDT Rehab Services Occupational Therapy [address] [address] Margaret Reyes, OT [address] [place] [address] 10/25/2023 10:45 AM EDT Rehab Services Occupational Therapy [address] [address] Margaret Reyes, OT [address] [place] [address] 10/25/2023 1:00 PM EDT Office Visit [facility] [place] [address] Christiano Shields DO [address] [place] [address] Photographer Mejia Cai [address] [place] [address] 10/27/2023 9:15 AM EDT Rehab Services [address] [address] Margaret Reyes, OT [address] [place] [address] 11/01/2023 10:45 AM EDT Rehab Services [address] [address] Margaret Reyes, OT [address] [place] [address] 11/03/2023 9:15 AM EDT Rehab Services [address] [address] Margaret Reyes, OT [address] [place] [address] 11/08/2023 9:15 AM EDT Rehab Services [address] [address] Margaret Reyes, OT [address] [place] [address] 11/10/2023 9:15 AM EDT Rehab Services [address] [address] Margaret Reyes, OT [address] [place] [address] 11/14/2023 2:45 PM EDT Imaging [address] [address] 11/15/2023 9:15 AM EDT Rehab Services [address] [address] Margaret Reyes, OT [address] [place] [address] 11/17/2023 9:15 AM EDT Rehab Services [address] [address] MaryledaMargaret, OT [address] [place] [address] 11/22/2023 9:15 AM EDT Rehab Services [address] [address] Margaret Reyes, OT [address] [place] [address] 11/24/2023 9:15 AM EDT Rehab Services [address] [address] Margaret Reyes, OT [address] [place] [address] 11/29/2023 9:15 AM EDT Rehab Services [address] [address] Margaret Reyes, OT [address] [place] [address] 12/01/2023 9:15 AM EDT Rehab Services [address] [address] Margaret Reyes, OT [address] [place] [address] 01/10/2024 2:00 PM EST Office Visit Optometry, [place] [address] [place] [address] Parminder Joyner, ADAN [address] [place] [address] Health Maintenance Due Date Last Done Comments Lipid Panel 1965 Cologuard 2010 Colonoscopy 2010 Sigmoidoscopy 2010 Zoster Vaccines (1 of 2) 2015 Mammogram 03/14/2016 03/14/2015, 03/27/2014 Depression Monitoring 06/10/2016 06/11/2015 Colorectal Cancer Screening 01/25/2017 Fecal Occult Blood Test 01/25/2017 01/26/2016 COVID-19 Vaccine (2022- season) 2022 11/26/2021, 08/27/2021, 02/19/2021, Additional history [...] Advance Directives occurred with: Patient Care Teams Music Cataloguer Relationship Specialty Start Date End Date Bassam Phillip DO [address] [address] [place] [address] PCP - General Family Medicine 09/23/23 documented as of this encounter
--- OUTSIDE RECORDS SUMMARY | 2023-10-21 01:14 | External Medical Summary | Summary of Care ---
Author Name Unknown Organization [facility] Address [address] [place] [address] Phone [phone] Care Team Providers Care Alarm Installation Technician Name Role Phone KenjiBassam Primary Care Provider [phone] Reason for Visit * Reason Comments Pain Limited Range Of Motion Muscle Weakness Edema * Evaluate & Treat - Unlimited Visits (Within 10 days (routine)) - Authorized Specialty Diagnoses / Procedures Referred By Thierry funk Referred To Contact Occupational Therapy Diagnoses Encounter for other specified aftercare Other specified postprocedural states Procedures EVALUATE & TREAT Bert Méndez MD [address] [address] Referral ID Status Reason Start Date Expiration Date Visits Requested Visits Authorized [id number] Authorized Specialty Services Required 08/09/2023 03/06/2024 999 [id number] Encounter Details Date Type Department Care Team (Latest Contact Info) Description 10/12/2023 1:00 PM EDT Rehab Services Occupational Therapy [address] [place] [address] Margaret Reyes, MIGDALIA [address] [place] [address] Other specified postprocedural states* Allergies Active Allergy Reactions Criticality Noted Date [...] amphetamine-dextro amphet ER (ADDERALL XR) 30 MG [id number]:AD HD (attention deficit hyperactivity disorder), combined type Take 1 Cap by mouth daily. July fill June 05 30 Cap 04/23/2016 Active cetirizine (ZYRTEC) [...] MG/ACT Nasal Solution (Varenicline Tartrate) Administer 1 [place] into nostril in the morning and 1 [place] before bedtime. 4.2 mL 6 07/05/2023 Active [...] Progress Notes * Margaret Reyes, OT - 10/12/2023 1:49 PM EDT Outpatient Occupational Therapy Daily Progress Note Venuledasal Sellers [address] [place] [address] Patient Name: Yelena Rubio Date of : 1965 Age: [age] year old Visit Number: [id number] Next Re-Certification Due: 30th Visit Insurance: Payor: [employer] MED[employer]ARE ADVANTAGE Plan: [employer]VANTAGE PPO Referring Physician: Bert Méndez MD Primary Care Physician: Victoriano Han DO Encounter Diagnosis: [Z98.890] Other specified postprocedural states Subjective: Yelena reports that her hand is in excruciating pain from her EMG performed on 10/10/2023. She reports she went to the emergency room yesterday due to the pain. She reports she may not be able to participate in treatment session. Patient became tearful and visibly upset when describing her current situation and EMG test completed on 10/10/2023. Pain Rating: Yelena has complaints of 10/10 pain in her left hand. Objective: Manual Therapy: Attempted to complete manual therapy and ice massage, however, patient was unable to tolerate either due to her pain. Assessment: Patient reported 10/10 pain today due to her recent EMG study. She was unable to tolerate manual therapy. She was fit for a new medium isotoner glove to decrease her swelling. She was educated on safety and wear instructions. She verbalized understanding. She will take a week off from [facility] and call her referring provider with any additional questions or concerns. Plan: Patient will take a week off from therapy due to her increased pain. Continue skilled occupational therapy 2-3x a week x 6 weeks from re- certification to address range of motion, dexterity, fine motor coordination, pain, and edema. Untimed Services: 25 Minutes Timed Services: 0 Minutes Total Treatment Time: 25 Minutes Margaret Reyes OTR/Florian 10/12/2023 documented in this encounter Plan of Treatment Upcoming Encounters Date Type Department Care Team (Late st Contact Info) Description 10/21/2023 9:30 AM EDT Rehab Services [address] [address] Margaret Reyes, OT [address] [place] [address] 10/25/2023 10:45 AM EDT Rehab Services [address] [address] Margaret Reyes, OT [address] [place] [address] 10/25/2023 1:00 PM EDT Office Visit [address] [address] Christiano Shields DO 16 [place] [address] Photographer Ayala Webster 16 [place] [address] 10/27/2023 9:15 AM EDT Rehab Services [address] [address] Margaret Reyes OT [address] [place] [address] 11/01/2023 10:45 AM EDT Rehab Services [address] [address] Margaret Reyse, OT [address] [place] [address] 11/03/2023 9:15 AM EDT Rehab Services [address] [address] [place] [address] [place] [address] 11/08/2023 9:15 AM EDT Rehab Services [address] [address] Margaret Reyes, OT [address] [place] [address] 11/10/2023 9:15 AM EDT Rehab Services [address] [address] Margaret Reyes, OT [address] [place] [address] 11/14/2023 2:45 PM EDT Imaging [address] [address] 11/15/2023 9:15 AM EDT Rehab Services [address] [address] Margaret Reyes, OT [address] [place] [address] 11/17/2023 9:15 AM EDT Rehab Services [address] [address] Margaret Reyes, OT [address] [place] [address] 11/22/2023 9:15 AM EDT Rehab Services [address] [place] [address] Margaret Reyes, OT [address] [place] [address] 11/24/2023 9:15 AM EDT Rehab Services [address] [address] [place] [address] [place] [address] 11/29/2023 9:15 AM EDT Rehab Services [address] [place] [address] [place] [address] [place] [address] 12/01/2023 9:15 AM EDT Rehab Services [address] [address] [place] [address] [place] [address] 01/10/2024 2:00 PM EST Office Visit Optometry, [address] [address] Parminder Joyner, ADAN 16 [place], [place] [phone] Health Maintenance Due Date Last Done Comments [...] Not on filedocumented as of this encounter Visit Diagnoses Diagnosis Other specified postprocedural states- Primary documented in this encounter Advance Directives * Full Code [...] Advance Directives occurred with: Patient Care Teams Alarm Installation Technician Relationship Specialty Start Date End Date Bassam Phillip DO [address] [place] [address] PCP - General Family Medicine 09/23/23 documented as of this encounter
--- OUTSIDE RECORDS SUMMARY | 2023-10-21 01:14 | External Medical Summary | Summary of Care ---
Author Name Unknown Organization [facility] Address [address] [place] [address] Phone [phone] Care Team Providers Care Toll Line Repairer Name Role Phone KenjiBassam Primary Care Provider [phone] Reason for Visit * Reason Comments Pain Limited Range Of Motion Muscle Weakness Edema * Evaluate & Treat - Unlimited Visits (Within 10 days (routine)) - Authorized Specialty Diagnoses / Procedures Referred By Thierry funk Referred To Contact Occupational Therapy Diagnoses Encounter for other specified aftercare Other specified postprocedural states Procedures EVALUATE & TREAT Bert Méndez MD [address] [address] Referral ID Status Reason Start Date Expiration Date Visits Requested Visits Authorized [id number] Authorized Specialty Services Required 08/09/2023 03/06/2024 999 999 Encounter Details Date Type Department Care Team (Latest Contact Info) Description 10/12/2023 1:00 PM EDT Rehab Services Occupational Therapy [address] [place] [address] Margaret Reyes, MIGDALIA [address] [place] [address] Other specified postprocedural states* Allergies [...] amphetamine-dextro amphet ER (ADDERALL XR) 30 MG XU44Zlknxvoiupn:AD HD (attention deficit hyperactivity disorder), combined type [...] MG/ACT Nasal Solution (Varenicline Tartrate) Administer 1 [place] into nostril in the morning and 1 [place] before bedtime. 4.2 mL 6 07/05/2023 Active [...] Occupational Therapy Daily Progress Note Venuledasal Sellers [address] [place] [address] Patient Name: Yelena Rubio Date of : [...] She will take a week off from [facility] and call her referring provider with any [...] Description 10/21/2023 9:30 AM EDT Rehab Services [address] [address] Margaret Reyes, OT [address] [place] [address] 10/25/2023 10:45 AM EDT Rehab Services [address] [address] Margaret Reyes, OT [address] [place] [address] 10/25/2023 1:00 PM EDT Office Visit [address] [address] Christiano Shields DO 16 [place] [address] Photographer Ayala Baxter 16 [place] [address] 10/27/2023 9:15 AM EDT Rehab Services [address] [address] Margaret Reyes OT [address] [place] [address] 11/01/2023 10:45 AM EDT Rehab Services [address] [address] Margaret Reyes, OT [address] [place] [address] 11/03/2023 9:15 AM EDT Rehab Services [address] [address] [place] [address] [place] [address] 11/08/2023 9:15 AM EDT Rehab Services [address] [address] Margaret Reyes, OT [address] [place] [address] 11/10/2023 9:15 AM EDT Rehab Services [address] [address] Margaret Reyes, OT [address] [place] [address] 11/14/2023 2:45 PM EDT Imaging [address] [address] 11/15/2023 9:15 AM EDT Rehab Services [address] [address] Margaret Reyes, OT [address] [place] [address] 11/17/2023 9:15 AM EDT Rehab Services [address] [address] Margaret Reyes, OT [address] [place] [address] 11/22/2023 9:15 AM EDT Rehab Services [address] [place] [address] Margaret Reyes, OT [address] [place] [address] 11/24/2023 9:15 AM EDT Rehab Services [address] [address] [place] [address] [place] [address] 11/29/2023 9:15 AM EDT Rehab Services [address] [place] [address] [place] [address] [place] [address] 12/01/2023 9:15 AM EDT Rehab Services [address] [address] [place] [address] [place] [address] 01/10/2024 2:00 PM EST Office Visit Optometry, [address] [address] Parminder Joyner, ADAN 16 [place], [place] [phone] Health Maintenance Due Date Last Done Comments [...] Advance Directives occurred with: Patient Care Teams Toll Line Repairer Relationship Specialty Start Date End Date Bassam Phillip DO [address] [place] [address] PCP - General Family Medicine 09/23/23 documented as of this encounter
--- OUTSIDE RECORDS SUMMARY | 2023-10-21 01:14 | External Medical Summary | Summary of Care ---
Author Name Unknown Organization [facility] Address [address] [place] [address] Phone [phone] Care Team Providers Care Busgirl Name Role Phone KenjiBassam DO Primary Care Provider [phone] Reason for Visit * Reason Onset Date Comments FYI 10/11/2023 Encounter Details Date Type Department Care Team (Late st Contact Info) Description 10/11/2023 Telephone Neurology [facility] [address] [place] [address] Henry Edgar MD [address] [place] [address] FY Allergies Active Allergy Reactions Criticality Noted [...] amphetamine-dextro amphet ER (ADDERALL XR) 30 MG EY37Kmqghwsuhwc:AD HD (attention deficit hyperactivity disorder), combined type [...] MG/ACT Nasal Solution (Varenicline Tartrate) Administer 1 [place] into nostril in the morning and 1 [place] before bedtime. 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 I questioned whether she had been given gabapentin and she informed me that she could not tolerate the drug in the past andit made her feel strange and did not help symptoms then I did not offer a prescription for pain management as I was only involved in her care to perform a diagnostic examination She now tells me that she has had increased swelling and bruising of the hand that she can not touch the ulnar aspect of the hand and that the pain is severe and unremitting she had visit a local emergency room has been given a pain shot and has been told to ice her hand and take ibuprofen and Tylenol She claims today that I tried to give her Gabapentin after the study but that is incorrect as notedabove I did offer to look at the [...] excruciating. The number to called Yelena is [phone] if you have any questions, or advise for the patient. Thank you. CONSTANZA Lombardi documented in this encounter Plan of Treatment Upcoming Encounters Date Type Department Care Team (Late st Contact Info) Description 10/21/2023 9:30 AM EDT Rehab Services Occupational Therapy [address] [address] Margaret Reyes, OT [address] [place] [address] 10/25/2023 10:45 AM EDT Rehab Services Occupational [address] [place] [address] Margaret Reyes, OT [address] [place] [address] 10/25/2023 1:00 PM EDT Office Visit [facility] [place] [address] [place] [address] Christiano Shields DO 16 [place] [address] Photographer Ayala Rosebud 16 [place] [address] 10/27/2023 9:15 AM EDT Rehab Services Occupational [address] [address] Margaret Reyes, OT [address] [place] [address] 11/01/2023 10:45 AM EDT Rehab Services [address] [address] Margaret Reyes, OT [address] [place] [address] 11/03/2023 9:15 AM EDT Rehab Services [address] [address] Margaret Reyes, OT [address] [place] [address] 11/08/2023 9:15 AM EDT Rehab Services Occupational [address] [address] Margaret Reyes, OT [address] [place] [address] 11/10/2023 9:15 AM EDT Rehab Services [address] [address] Margaret Reyes, OT [address] [place] [address], [place] [address] 11/14/2023 2:45 PM EDT Imaging [address] [address] 11/15/2023 9:15 AM EDT Rehab Services [address] [address] Margraet Reyes, OT [address] [place] [address] 11/17/2023 9:15 AM EDT Rehab Services [address] [place] [address] Margaret Reyes, OT [address] [place] [address] 11/22/2023 9:15 AM EDT Rehab Services [address] [address] Margaret Reyes, OT [address] [place] [address] 11/24/2023 9:15 AM EDT Rehab Services [address] [address] Margaret Reyes, OT [address] [place] [address] 11/29/2023 9:15 AM EDT Rehab Services [address] [place] [address] Margaret Reyes, OT [address] [place] [address] 12/01/2023 9:15 AM EDT Rehab Services [place] [address] [place] [address] Margaret Reyes, OT [address] [place] [address] 01/10/2024 2:00 PM EST Office Visit Optometry, [place] [address] [place] [address] Parminder Joyner, OD 16 [place], [place] [phone] Health Maintenance Due Date Last Done Comments [...] Advance Directives occurred with: Patient Care Teams Busgirl Relationship Specialty Start Date End Date Bassam Phillip DO [address] [place] [address] [address] [address] PCP - General Family Medicine 09/23/23 documented as of this encounter
--- OUTSIDE RECORDS SUMMARY | 2023-10-21 01:14 | External Medical Summary | Summary of Care ---
Author Name Unknown Organization [facility] Address [address] [place] [address] Phone [phone] Care Team Providers Care Utilization Supervisor Name Role Phone KenjiBassam Primary Care Provider [phone] Encounter Details Date Type Department Care Team (Late st Contact Info) Description 10/10/2023 Result Scan Unspecified Department <No scans attached> Allergies Active Allergy Reactions Criticality Noted Date [...] amphetamine-dextro amphet ER (ADDERALL XR) 30 MG SB40Thqonrmhsys:AD HD (attention deficit hyperactivity disorder), combined type [...] MG/ACT Nasal Solution (Varenicline Tartrate) Administer 1 [place] into nostril in the morning and 1 [place] before bedtime. 4.2 mL 6 07/05/2023 Active [...] on file documented as of this encounter Plan of Treatment Upcoming Encounters Date Type Department Care Team ([facility] st Contact Info) Description 10/12/2023 1:00 PM EDT Rehab Services Occupational Therapy [address] [place] [address] Margaret Reyes OT [address] [place] [address] 10/13/2023 9:15 AM EDT Rehab Services Occupational Therapy [address] [place] [address] [place] [address] [place] [address] 10/21/2023 9:30 AM EDT Rehab Services [address] [address] Margaret Reyes, OT [address] [place] [address] 10/25/2023 10:45 AM EDT Rehab Services [address] [address] Margaret Reyes, OT [address] [place] [address] 10/25/2023 1:00 PM EDT Office Visit [address] [address] Christiano Shields DO [address] [place] [address] Photographer Ayala [address] [address] 10/27/2023 9:15 AM EDT Rehab Services [address] [address] Margaret Reyes, OT [address] [place] [address] 11/01/2023 10:45 AM EDT Rehab Services [address] [address] Margaret Reyes, OT [address] [place] [address] 11/03/2023 9:15 AM EDT Rehab Services [address] [place] [address] Margaret Reyes, OT [address] [place] [address] 11/08/2023 9:15 AM EDT Rehab Services [address] [address] Margaret Reyes, OT [facility] [place] [address] 11/10/2023 9:15 AM EDT Rehab Services [address] [address] Margaret Reyes, OT [address] [place] [address] 11/14/2023 2:45 PM EDT Imaging [address] [address] 11/15/2023 9:15 AM EDT Rehab Services [address] [address] Margaret Reyes, OT [address] [place] [address] 11/17/2023 9:15 AM EDT Rehab Services [address] [address] Margaret Reyes, OT [address] [place] [address] 11/22/2023 9:15 AM EDT Rehab Services [address] [address] Margaret Reyes, OT [address] [place] [address] 11/24/2023 9:15 AM EDT Rehab Services [address] [place] [address] Maryleda Margaretfaraz Romero, OT [address] [place] [address] 11/29/2023 9:15 AM EDT Rehab Services [address] [place] [address] Margaret Reyes, OT [address] [place] [address] 12/01/2023 9:15 AM EDT Rehab Services [address] [address] Margaret Reyes, OT [address] [place] [address] 01/10/2024 2:00 PM EST Office Visit Optometry, [place] [address] [place] [address] Parminder Joyner, ADAN 16 [place] [address] Health Maintenance Due Date Last Done Comments [...] Not on filedocumented as of this encounter Procedures Procedure Name Priority Date/Time Associated Diagnosis Comments PROCEDURE SCANNED RESULT 10/10/2023 documented in this encounter Results * PROCEDURE SCANNED RESULT (10/10/2023) 10/10/2023 No Physician Data Unknown SURGERY documented in this encounter Advance Directives * [...] Advance Directives occurred with: Patient Care Teams Utilization Supervisor Relationship Specialty Start Date End Date Bassam Phillip DO [address] [place] [address] [place] [address] PCP - General Family Medicine 09/23/23 documented as of this encounter
--- OUTSIDE RECORDS SUMMARY | 2023-10-21 01:15 | External Medical Summary | Summary of Care ---
Author Name Unknown Organization [facility] Address [address] [place] [address] Phone [phone] Care Team Providers Care Preschool Assistant Name Role Phone KenjiBassam Primary Care Provider [phone] Reason for Visit * Reason Comments EMG * Ancillary Services (Within 10 days (routine)) - Authorized Specialty Diagnoses / Procedures Referred By Thierry funk Referred To Contact Neurophysiology Diagnoses Anesthesia of skin Procedures EMG Bert Méndez MD [address] [address] Referral ID Status Reason Start Date Expiration Date Visits Requested Visits Authorized [id number] Authorized Ancillary Services Required 09/20/2023 12/05/2023 [id number] Encounter Details Date Type Department Care Team ([facility] Contact Info) Description 10/10/2023 1:25 PM EDT NeuroDiagnostic Study Neurophysiology [facility] 200 [facility] [place] [address] Henry Edgar MD [address] [place] [address] Arrived Allergies Active Allergy Reactions Criticality Noted Date Comments Adhesive Tape Rash 10/11/2016 Fluconazole 08/12/2021 Latex Rash 10/12/2010 Nystatin 04/04/2017 Skin/facial discoloration documented as of this encounter (statuses as of 10/10/2023) Medications Medication Sig Dispensed Refills Start Date [...] amphetamine-dextro amphet ER (ADDERALL XR) 30 MG [id number]:AD HD (attention deficit hyperactivity disorder), combined type [...] MG/ACT Nasal Solution (Varenicline Tartrate) Administer 1 [place] into nostril in the morning and 1 [place] before bedtime. 4.2 mL 6 07/05/2023 Active Miebo 1.338 GM/ML Ophthalmic Solution (Perfluorohexyloct ane) Instill 1 Drop into eye in the morning and 1 Drop at noon and 1 Drop in the evening and 1 Drop before bedtime. 3 mL 12 07/05/2023 Active documented as of this encounter (statuses as of 10/10/2023) Active Problems Problem Noted Date Diagnosed Date [...] as of this encounter (statuses as of 10/10/2023) Immunizations Name Administration Dates Next Due Pneumococcal [...] as of this encounter Progress Notes * Henry Edgar MD - 10/10/2023 2:10 PM EDT The current study is done to evaluate left hand pain swelling and tingling of the fingertips following a complex crush injury and 4th finger fracture requiring open reduction and internal fixation 10weeks ago Nerve conduction studies done on left median and ulnar motor nerves with F- waves, the left median ulnar, radial and dorsal cutaneous sensory nerves and mid palmar orthodromic mixed ulnar and median nerves are all normal indicating no evidence for a polyneuropathy or demonstrable mononeuropathies involving the individually listed nerves. Needle EMG was confined to 3 intrinsic hand muscles due to the pain of the procedure but reveals noevidence for neurogenic changes in left abductor digiti minimi, 1st dorsal interosseous, or abductor pollicis brevis other than some nonspecific polyphasics in the latter muscle which may reflect a chronic prior trauma to that joint which the patient reports historically Overall than despite the clinical history there is no demonstrable evidence for a clear-cut left median ulnar or radial distal mononeuropathies at the level of the wrist or within the distal palm of the hand Henry Edgar MD documented in this encounter Plan of Treatment Upcoming Encounters Date Type Department Care Team (Late st Contact Info) Description 10/12/2023 1:00 PM EDT Rehab Services Occupational Therapy [address] [address] Margaret Reyes, OT [address] [place] [address] 10/13/2023 9:15 AM EDT Rehab Services Occupational Therapy [address] [address] Margaret Reyes, OT [address] [place] [address] 10/21/2023 9:30 AM EDT Rehab Services [address] [place] [address] Margaret Reyes, OT [address] [place] [address] 10/25/2023 10:45 AM EDT Rehab Services [address] [place] [address] Margaret Reyes, OT [address] [place] [address] 10/25/2023 1:00 PM EDT Office Visit [address] [address] Christiano Shields DO [address] [place] [address] [address] [address] 10/27/2023 9:15 AM EDT Rehab Services [address] [address] Margaret Reyes, OT [address] [place] [address] 11/01/2023 10:45 AM EDT Rehab Services [address] [address] Margaret Reyes, OT [address] [place] [address] 11/03/2023 9:15 AM EDT Rehab Services [address] [place] [address] Margaret Reyes, OT [address] [place] [address] 11/08/2023 9:15 AM EDT Rehab Services [address] [place] [address] [place] [address] [place] [address] 11/10/2023 9:15 AM EDT Rehab Services [address] [place] [address] Margaret Reyes, OT [address] [place] [address] 11/14/2023 2:45 PM EDT Imaging Radiology[address] [address] 11/15/2023 9:15 AM EDT Rehab Services [address] [place] [address] Margaret Reyes, OT [address] [place] [address] 11/17/2023 9:15 AM EDT Rehab Services [address] [address] Margaret Reyes, OT [address] [place] [address] 11/22/2023 9:15 AM EDT Rehab Services [address] [place] [address] Margaret Reyes, OT [address] [place] [address] 11/24/2023 9:15 AM EDT Rehab Services [address] [place] [address] [place] Margaret Romero, OT [address] [place] [address] 11/29/2023 9:15 AM EDT Rehab Services [address] [place] [address] [place] Margaret Arguetae, OT [address] [place] [address] 12/01/2023 9:15 AM EDT Rehab Services [address] [place] [address] MaryledaMargaret, OT [address] [place] [address] 01/10/2024 2:00 PM EST Office Visit Optometry, [place] [address] [place] [address] Parminder Joyner, ADAN [address] [place] [address] Health Maintenance Due Date Last Done Comments [...] as of this encounter Visit Diagnoses Diagnosis Numbness and tingling in left hand- Primary Disturbance of skin sensation documented in this encounter Advance Directives * [...] Advance Directives occurred with: Patient Care Teams Preschool Assistant Relationship Specialty Start Date End Date Bassam Phillip DO [address] [place] [address] PCP - General Family Medicine 09/23/23 documented as of this encounter
--- OUTSIDE RECORDS SUMMARY | 2023-10-21 01:15 | External Medical Summary | Summary of Care ---
Author Name Unknown Organization [facility] Address [address] [place] [address] Phone [phone] Care Team Providers Care Painter Touch Up Name Role Phone KenjiBassam Primary Care Provider [phone] Reason for Visit * Reason Comments Pain Limited Range Of Motion Muscle Weakness * Evaluate & Treat - Unlimited Visits (Within 10 days (routine)) - Authorized Specialty Diagnoses / Procedures Referred By Thierry funk Referred To Contact Occupational Therapy Diagnoses Encounter for other specified aftercare Other specified postprocedural states Procedures EVALUATE & TREAT Bert Méndez MD [address] [address] Referral ID Status Reason Start Date Expiration Date Visits Requested Visits Authorized [id number] Authorized Specialty Services Required 08/09/2023 03/06/2024 [id number] Encounter Details Date Type Department Care Team (Latest Contact Info) Description 10/04/2023 1:00 PM EDT Rehab Services Occupational Therapy [address] [place] [address] Margaret Reyes, MIGDALIA [address] [place] [address] Other specified postprocedural states* Allergies Active Allergy Reactions Criticality Noted Date Comments Adhesive Tape Rash 10/11/2016 Fluconazole 08/12/2021 Latex Rash 10/12/2010 Nystatin 04/04/2017 Skin/facial discoloration documented as of this encounter (statuses as of 10/04/2023) Medications Medication Sig Dispensed Refills Start Date [...] amphetamine-dextro amphet ER (ADDERALL XR) 30 MG [id number]:AD HD (attention deficit hyperactivity disorder), combined type [...] MG/ACT Nasal Solution (Varenicline Tartrate) Administer 1 [place] into nostril in the morning and 1 [place] before bedtime. 4.2 mL 6 07/05/2023 Active Miebo 1.338 GM/ML Ophthalmic Solution (Perfluorohexyloct ane) Instill 1 Drop into eye in the morning and 1 Drop at noon and 1 Drop in the evening and 1 Drop before bedtime. 3 mL 12 07/05/2023 Active documented as of this encounter (statuses as of 10/04/2023) Active Problems Problem Noted Date Diagnosed Date ASCUS with positive high risk HPV cervical [...] as of this encounter (statuses as of 10/04/2023) Immunizations Name Administration Dates Next Due Pneumococcal [...] Progress Notes * Margaret Reyes, OT - 10/04/2023 2:15 PM EDT Outpatient Occupational Therapy Daily Progress Note Buck Gagnonn [address] [place] [address] Patient Name: Yelena Rubio Date of : 1965 Age: [age] year old Visit Number: [id number] Next Re-Certification Due: Visit Date: 10/04/2023 Insurance: Payor: AET MEDICARE ADVANTAGE Plan: [employer] MEDICARE [employer]VANTAGE PPO Referring Physician: Bert Méndez MD Return Appointment: 4 weeks from 08/31/2023 Primary Care Physician: Victoriano Han DO Encounter Diagnosis: [Z98.890] Other specified postprocedural states Subjective: Yelena reports her hand has been feeling sore recently. She reports she bumped her hand near her incision yesterday and was very uncomfortable all day. She reports she will continue to complete her desensitization program at home because her sensitivity has slightly decreased. Pain Rating: Yelena has complaints of pain. Objective: Manual Therapy: Patient tolerated gentle massage to her palm, digits, wrist, and forearm to reduce edema and pain while resting comfortably on pillow top. She tolerated scar massage to decrease adhesions in scar. Her incision is well healed. Patient tolerated PROM digit flexion exercises. Therapeutic Exercise: Patient completed AROM exercises today including digit flexion and extension.She completed towel scrunches and rolling towel exercises. Assessment: Yelena tolerated treatment session fairly well as detailed above. She is due for a re-certification during the next treatment session. Patient would benefit from continued skilled occupational therapy services to address pain, range of motion, fine motor coordination, dexterity, scar management, and strengthening when appropriate. Plan: Continue skilled occupational therapy 2-3x a week x 6 weeks from re- certification to address range of motion, dexterity, fine motor coordination, pain, and edema. Untimed Services: 0 Minutes Timed Services: 45 Minutes Total Treatment Time: 45 Minutes Margaret Reyes OTR/L 10/04/2023 documented in this encounter Plan of Treatment Upcoming Encounters Date Type Department Care Team (Late st Contact Info) Description 10/05/2023 2:45 PM EDT Rehab Services Occupational Therapy [facility] [address] [facility] [address] [place] [address] Margaret Reyes, OT [address] [place] [address] 10/10/2023 1:25 PM EDT NeuroDiagnostic Study Neurophysiology [facility] [address] [place] [address] Henry Edgar MD [address] [place] [address] 10/25/2023 1:00 PM EDT [facility] [place] [place] [address] [place] [address] Christiano Shields DO [address] [place] [address] Photographer Ayala [address] [address] 11/14/2023 2:45 PM EDT Imaging Radiology, [place] [address] [place] [address] 01/10/2024 2:00 PM EST Office Visit Optometry, [place] [address] [place] [address] Parminder Joyner OD [address] [place] [address] Health Maintenance Due Date Last Done Comments Lipid Panel 1965 HIV Screening 1980 Cologuard 2010 Colonoscopy 2010 Sigmoidoscopy 2010 Zoster [...] Cancer Screening 07/15/2027 HPV/Co-Test 07/15/2027 07/14/2022 Hepatitis C Screening Completed 06/02/2009 Hepatitis B Vaccine Completed 02/07/2014, 09/11/2013, 07/25/2013 [...] Advance Directives occurred with: Patient Care Teams Painter Touch Up Relationship Specialty Start Date End Date Bassam Phillip DO [address] [address] [address] [address] PCP - General Family Medicine 09/23/23 documented as of this encounter
--- OUTSIDE RECORDS SUMMARY | 2023-10-21 01:15 | External Medical Summary | Summary of Care ---
Author Name Unknown Organization [facility] Address [address] [place] [address] Phone [phone] Care Team Providers Care Geriatric Physical Therapist Name Role Phone KenjiBassam Primary Care Provider [phone] Encounter Details Date Type Department Care Team ([facility] Contact Info) Description 10/06/2023 Documentation Occupational Therapy [address] [place] [address] Margaret Reyes, OT [address] [place] [address] Allergies Active Allergy Reactions Criticality Noted Date Comments Adhesive Tape Rash 10/11/2016 Fluconazole 08/12/2021 Latex Rash 10/12/2010 Nystatin 04/04/2017 Skin/facial discoloration documented as of this encounter (statuses as of 10/06/2023) Medications Medication Sig Dispensed Refills Start Date [...] amphetamine-dextro amphet ER (ADDERALL XR) 30 MG [id number]:AD HD (attention deficit hyperactivity disorder), combined type [...] MG/ACT Nasal Solution (Varenicline Tartrate) Administer 1 [place] into nostril in the morning and 1 [place] before bedtime. 4.2 mL 6 07/05/2023 Active Miebo 1.338 GM/ML Ophthalmic Solution (Perfluorohexyloct ane) Instill 1 Drop into eye in the morning and 1 Drop at noon and 1 Drop in the evening and 1 Drop before bedtime. 3 mL 12 07/05/2023 Active documented as of this encounter (statuses as of 10/06/2023) Active Problems Problem Noted Date Diagnosed Date [...] as of this encounter (statuses as of 10/06/2023) Immunizations Name Administration Dates Next Due Pneumococcal [...] Progress Notes * Margaret Reyes, OT - 10/06/2023 2:53 PM EDT PROGRESS NOTE - Occupational Therapy Service [address] [address] Name: Yelena Rubio Date: 10/06/2023 Time: 2:53 PM Contacted patient's referring provider yesterday, 10/05/2023, to determine if the patient's strengthcould be assessed and addressed at this time. Received return call from referring provider's office. Called referring provider's office this afternoon and Aiyana, healthcare receptionist, states that there is achart note from PHYLICIA Lind, who states that the therapist can assess the patient's strength as tolerated per Dr. Méndez. The patient does not have a follow-up appointment scheduled. Aiyana stated to have the patient call [phone] if a follow-up appointment is needed. Plan: Will assess the patient's strength during the next treatment session as tolerated. Margaret Reyes OTR/L 10/06/2023 documented in this encounter Plan of Treatment Upcoming Encounters Date Type Department Care Team (Late st Contact Info) Description 10/10/2023 1:25 PM EDT NeuroDiagnostic Study Neurophysiology [facility] 200 [facility] [place] [address] Henry Edgar MD [address] [facility] [place] [address] 10/12/2023 1:00 PM EDT Rehab Services [address] [phone] Margaret Reyes, OT [facility] [place] [address] 10/13/2023 9:15 AM EDT Rehab Services [address] [address] Margaret Reyes, OT [address] [place] [address] 10/21/2023 9:30 AM EDT Rehab Services Occupational [address] [place] [address] [place] [address] [place] [address] 10/25/2023 10:45 AM EDT Rehab Services [address] [address] Margaret Reyes, OT [address] [place] [address] 10/25/2023 1:00 PM EDT Office Visit [facility] Eye [address] [address] Christiano Shields DO [address] [place] [address] Photographer Ayala [address] [address] 10/27/2023 9:15 AM EDT Rehab Services [address] [address] Margaret Reyes, OT [address] [place] [address] 11/01/2023 10:45 AM EDT Rehab Services [address] [address] Margaret Reyes, OT [address] [place] [address] 11/03/2023 9:15 AM EDT Rehab Services [address] [address] Margaret Reyes, OT [address] [place] [address] 11/08/2023 9:15 AM EDT Rehab Services [address] [address] Margaret Reyes, OT [address] [place] [address] 11/10/2023 9:15 AM EDT Rehab Services [address] [address] Margaret Reyes, OT [address] [place] [address] 11/14/2023 2:45 PM EDT Imaging [address] [address] 11/15/2023 9:15 AM EDT Rehab Services [address] [address] Margaret Reyes, OT [address] [place] [address] 11/17/2023 9:15 AM EDT Rehab Services [address] [address] Margaret Reyes, OT [address] [place] [address] 11/22/2023 9:15 AM EDT Rehab Services [address] [address] Margaret Reyes, OT [address] [place] [address] 11/24/2023 9:15 AM EDT Rehab Services [address] [address] GreMargaret tompikns, OT 10[address] [place] [address] 11/29/2023 9:15 AM EDT Rehab Services Occupational [facility] [address] [facility] [address] [place] [address] Margaret Reyes, OT 10[address] [place] [address] 12/01/2023 9:15 AM EDT Rehab Services Occupational [facility] [address] [facility] [address] [place] [address] Margaret Reyes, OT [address] [place] [address] 01/10/2024 2:00 PM EST Office Visit Optometry, [place] [address] [place] [address] Parminder Joyner, ADAN 16 [place] [address] Health Maintenance Due Date Last Done Comments [...] Advance Directives occurred with: Patient Care Teams Geriatric Physical Therapist Relationship Specialty Start Date End Date Bassam Phillip DO [address] [place] [address] [address] [address] PCP - General Family Medicine 09/23/23 documented as of this encounter
--- OUTSIDE RECORDS SUMMARY | 2023-10-21 01:15 | External Medical Summary | Summary of Care ---
Author Name Unknown Organization [facility] Address [address] [place] [address] Phone [phone] Care Team Providers Care Manager Of Application Development Name Role Phone KenjiBassam Primary Care Provider [phone] Reason for Visit * Reason Comments Pain Limited Range Of Motion Muscle Weakness * Evaluate & Treat - Unlimited Visits (Within 10 days (routine)) - Authorized Specialty Diagnoses / Procedures Referred By Thierry funk Referred To Contact Occupational Therapy Diagnoses Encounter for other specified aftercare Other specified postprocedural states Procedures EVALUATE & TREAT Bert Méndez MD [address] [address] Referral ID Status Reason Start Date Expiration Date Visits Requested Visits Authorized [id number] Authorized Specialty Services Required 08/09/2023 03/06/2024 [id number] Encounter Details Date Type Department Care Team (Latest Contact Info) Description 10/05/2023 2:45 PM EDT Rehab Services Occupational Therapy [address] [place] [address] Margaret Reyes, MIGDALIA [address] [place] [address] Other specified postprocedural states* Allergies Active Allergy Reactions Criticality Noted Date Comments Adhesive Tape Rash 10/11/2016 Fluconazole 08/12/2021 Latex Rash 10/12/2010 Nystatin 04/04/2017 Skin/facial discoloration documented as of this encounter (statuses as of 10/05/2023) Medications Medication Sig Dispensed Refills Start Date [...] amphetamine-dextro amphet ER (ADDERALL XR) 30 MG [id number]:AD HD (attention deficit hyperactivity disorder), combined type [...] MG/ACT Nasal Solution (Varenicline Tartrate) Administer 1 Coleman into nostril in the morning and 1 Coleman before bedtime. 4.2 mL 6 07/05/2023 Active Miebo 1.338 GM/ML Ophthalmic Solution (Perfluorohexyloct ane) Instill 1 Drop into eye in the morning and 1 Drop at noon and 1 Drop in the evening and 1 Drop before bedtime. 3 mL 12 07/05/2023 Active documented as of this encounter (statuses as of 10/05/2023) Active Problems Problem Noted Date Diagnosed Date [...] as of this encounter (statuses as of 10/05/2023) Immunizations Name Administration Dates Next Due Pneumococcal [...] Progress Notes * Margaret Reyes, OT - 10/05/2023 2:49 PM EDT Images from the original note were not included. Outpatient Occupational Therapy Re-Certification [address] [address] In accordance with accepted medical standards, I hereby certify that the below named patient requires rehabilitation services for the problem(s) identified below. As such, I request that the center'sprofessional staff evaluate and assess the patient's need for said services on a regular basis for my approval (to be reviewed every 90 days). Provider Signature: Date: Time: Please sign and return via FAX [phone] Patient Name: Yelena Rubio Date of : 1965 Age: [age] year old Visit Number: 20 Next Re-Certification Due: 30 Visit Date: 10/05/2023 Insurance: Payor: T MEDICARE ADVANTAGE Plan: T MEDICARE ADVANTAGE PPO Referring Physician: Bert Méndez MD Return Appointment: October 21, 2023 EMG scheduled on: October 10, 2023 Primary Care Physician: Victoriano Han DO Encounter Diagnosis: [Z98.890] Other specified postprocedural states Subjective: Yelena was pleasant and cooperative during re-certification session Patient reports her scar has been burning. Patient reports she has noticed an improvement in her range of motion. She continues to report burning, pulling, and pain when moving her hand. Pain Rating: Yelena reported 7/10 pain at rest and during activity. Due to her increased pain today, her strength was not assessed. A message was left for her referring provider to ask if she was able to progress with strengthening at this point. Will await return call with information. Objective: Patient participated in obtaining new measurements as detailed below. Upper Extremity Range of Motion: Normal Range* LUE AROM 08/09/2023 LUE AROM 09/02/2023 LUE AROM 10/05/2023 Forearm Pronation 0/90 0/90 0/90 0/90 Forearm Supination 0/90 0/90 0/90 0/90 Wrist Flexion 0/70 0/8 0/45 0/50 Wrist Extension 0/80 0/12 0/48 0/52 Wrist Radial Deviation 0/20 0/8 0/28 0/25 Wrist Ulnar Deviation 0/30 0/17 0/22 0/24 Digit 1 MCP Flexion 0/50 0/40 0/44 0/50 Digit 1 IP Flexion 0/80 0/64 0/64 0/70 Digit 2 MCP Flexion 0/90 -20/38 0/40 0/72 Digit 2 PIP Flexion 0/90 0/30 0/64 0/70 Digit 2 DIP Flexion 0/90 0/32 0/50 0/56 Digit 3 MCP Flexion 0/90 -20/40 0/46 0/74 Digit 3 PIP Flexion 0/90 0/16 0/72 0/76 Digit 3 DIP Flexion 0/90 0/30 0/46 0/54 Digit 4 MCP Flexion 0/90 +10/24 0/46 0/60 Digit 4 PIP Flexion 0/90 0/16 0/66 0/76 Digit 4 DIP Flexion 0/90 0/30 0/44 0/48 Digit 5 MCP Flexion 0/90 -20/10 0/48 0/66 Digit 5 PIP Flexion 0/90 0/6 0/64 0/76 Digit 5 DIP Flexion 0/90 0/4 0/64 0/66 *Normal range of motion listed above is from the [employer]. Upper Extremity Strength Assessment: LUE MMT Pronation TBD Supination TBD Wrist Flexion TBD Wrist Extension TBD Wrist Radial Deviation TBD Wrist Ulnar Deviation TBD *TBD- To be determined Dielectric Testing Machine Operator Strength: Dielectric Testing Machine Operator Type Left Gross Grasp TBD Lateral Pinch TBD 3-Jaw Hansel TBD Pincer TBD *TBD- To be determined Fine Motor Coordination (9 Hole Peg Test): Hand Seconds 08/09/2023 Comments 08/09/2023 Seconds 09/02/2023 Seconds 10/05/2023 Right Hand 18.28 seconds 15.50 seconds 14.87 seconds Left Hand 42.03 seconds Patient dropped 2 pegs during test. 25.62 seconds 23.47 seconds Fine Motor Dexterity: Comments 08/09/2023 Comments 09/02/2023 Digit Opposition: Patient was able to oppose pad of thumb to digit 2. Patient was unable to oppose pad of thumb to digits 3-5. Patient was able to oppose pad of thumb todigits 2-5. Gross Grasp/Release: Patient was unable to oppose pads of digit 2 to palm by 7 cm. Patient was unable to oppose pads of digit 3 to palm by 8.5 cm. Patient was unable to oppose pads of digit 4 to palm by 8.5 cm. Patient was unable to oppose pads of digit 5 to palm by 7 cm. Patient was unable to oppose pad of digit 3 to palm by 0.2 cm. Patient was unable to oppose pad of digit 4 to palm by 0.8 cm. Patient was able to oppose pad of digits 2 and 5 to palm. Finger to Palm Translation Patient able to perform finger to palm translation with 3/5 beads with 60% accuracy. Patient able to perform finger to palm translation with 5/5 beads with 100% accuracy. Palm to Finger Translation Patient able to perform palm to finger translation with 0/5 beads with 0% accuracy. Patient able to perform palm to finger translation with 5/5 beads with 100% accuracy. Circumferential Measurements: Right 08/09/2023 Left 08/09/2023 Right 09/02/2023 Left 09/02/2023 Right 10/05/2023 Left 10/05/2023 Wrist 16.2 cm 15.6 cm 15.2 cm 15.3 cm 15 cm 15 cm Distal Palmar Crease 18.2 cm 18.5 cm 18.2 cm 18 cm 17.8 cm 17.4 cm Thumb Metacarpophalangeal Joint 6.3 cm 6.4 cm 6 cm 6 cm 6.2 cm 6 cm Index Proximal Phalanx 6.2 cm 6.3 cm 6.2 cm 6.1 cm 6.1 cm 6 cm Middle Proximal Phalanx 6.2 cm 6.6 cm 6 cm 5.9 cm 5.5 cm 5.5 cm Ring Proximal Phalanx 5.8 cm 6.5 cm 5.5 cm 5.6 cm 5.5 cm 5.6 cm Little Proximal Phalanx 5 cm 6.3 cm 5 cm 5 cm 5.2 cm 5.2 cm Total 63.9 cm 66.2 cm 62.1 cm 61.9 cm 61.3 cm 60.7 cm Difference (Between Right and Left) 2.3 cm 0.2 cm 0.6 cm Sensation: She reports she is overly sensitive to both hot and cold sensation. Patient reports a constant burning sensation. Patient reports pain going up and down arms. Upper Extremity Functional Index (UEFI): Completed on 08/09/2023 to determine if patient is currently having any difficulty with various functional activities due to her upper extremity problem for which she is currently seeking attention. Patient's overall score was 580 with 80 being the highest score indicating no difficulty with upper extremity activities and 0 being the lowest score indicating extreme difficulty with upper extremity activities. Please see chart below for specific score results. Activities Extreme Difficulty 0 Quite a bit of Difficulty 1 Moderate Difficulty 2 A Little Bit of Difficulty 3 No Difficulty 4 Any of your usual work, housework, or school activities X Your usual hobbies, recreational, or sporting activities X Lifting a bag of groceries to waist level X Placing an object onto, or removing it from an overhead shelf X Washing your hair or scalp X Pushing up on your hands (e.g., from bathtub or chair) X Preparing food (e.g., peeling, cutting) X Driving X Vacuuming, sweeping, or raking X Dressing X Doing up buttons X Using tools or appliances X Opening doors X Cleaning X Tying or lacing shoes X Sleeping X Laundering clothes (e.g., washing, ironing, folding) X Opening a jar X Throwing a ball X Carrying a small suitcase with your affected limb X Column Totals: 0 2 0 3 0 Total: 80 Upper Extremity Functional Index (UEFI): Completed on 09/02/2023 to determine if patient is currently having any difficulty with various functional activities due to her upper extremity problem for which she is currently seeking attention. Patient's overall score was 21/80 with 80 being the highest score indicating no difficulty with upperextremity activities and 0 being the lowest score indicating extreme difficulty with upper extremity activities. Please see chart below for specific score results. Activities Extreme Difficulty 0 Quite a bit of Difficulty 1 Moderate Difficulty 2 A Little Bit of Difficulty 3 No Difficulty 4 Any of your usual work, housework, or school activities X Your usual hobbies, recreational, or sporting activities X Lifting a bag of groceries to waist level X Placing an object onto, or removing it from an overhead shelf X Washing your hair or scalp X Pushing up on your hands (e.g., from bathtub or chair) X Preparing food (e.g., peeling, cutting) X Driving X Vacuuming, sweeping, or raking X Dressing X Doing up buttons X Using tools or appliances X Opening doors X Cleaning X Tying or lacing shoes X Sleeping X Laundering clothes (e.g., washing, ironing, folding) X Opening a jar X Throwing a ball X Carrying a small suitcase with your affected limb X Column Totals: 0 11 10 0 0 Total: 21/80 Upper Extremity Functional Index (UEFI): Completed today to determine if patient is currently having any difficulty with various functional activities due to her upper extremity problem for which she is currently seeking attention. Patient's overall score was 37/80 with 80 being the highest score indicating no difficulty with upper extremity activities and 0 being the lowest score indicating extreme difficulty with upper extremity activities. Please see chart below for specific score results. Activities Extreme Difficulty 0 Quite a bit of Difficulty 1 Moderate Difficulty 2 A Little Bit of Difficulty 3 No Difficulty 4 Any of your usual work, housework, or school activities X Your usual hobbies, recreational, or sporting activities X Lifting a bag of groceries to waist level X Placing an object onto, or removing it from an overhead shelf X Washing your hair or scalp X Pushing up on your hands (e.g., from bathtub or chair) X Preparing food (e.g., peeling, cutting) X Driving X Vacuuming, sweeping, or raking X Dressing X Doing up buttons X Using tools or appliances X Opening doors X Cleaning X Tying or lacing shoes X Sleeping X Laundering clothes (e.g., washing, ironing, folding) X Opening a jar X Throwing a ball X Carrying a small suitcase with your affected limb X Column Totals: 0 5 10 18 4 Total: 37/80 Therapeutic Exercise: Patient completed AROM exercises today including digit flexion, digit extension, opposition, wrist flexion, wrist extension, radial deviation, ulnar deviation, and opposition slides. She completed towel scrunches and rolling towel exercises. Patient Education and Home Exercise Program: Person(s) Taught: Patient Topic: Discussed present condition, treatment rationale, progression of treatment, home exercise program, edema management Method: Verbal Outcome: Patient participated in review of home exercise programs. Assessment: Yelena is a 58 year old who is status post left open reduction internal fixation on 07/21/2023. She continues to make good progress toward establishing her therapy goals as detailed below. She has increased her range of motion as detailed above. Her referring provider was contacted to clarify if she could have her strength addressed and begin strengthening. Patient continues to reportpain at rest and during activity. Patient has made progress toward making a full fist, however, sheis still unable to actively oppose pad of digits 3 and 4 to her palm. Patient reports she is independent with all self care activities, however, she continues to have difficulty using her hand due to decreased range of motion and increased pain with motion. Patient will benefit from continued skilled occupational therapy services to address pain, range of motion, fine motor coordination, dexterity, scar management, and strengthening when appropriate. Patient is in agreement with plan of care. Goals: Short Term Goals to be met by 2-3 weeks from initial evaluation: 1.)Patient will increase AROM by 3-5 in each affected area. MET; Continue to address ROM 2.)Patient will increase m/s by 1/2 grade when allowed to address strength. Updated 3.)Patient will increase midwife and birth center owner strength by 3-5# when allowed to address strength. Updated 4.)Patient will increase pinch strengths by 1-3# each when allowed to address strength. Not addressed 5.)Patient will increase fine motor coordination by decreasing time on 9 hole peg test by 2-4 seconds. MET 6.)Patient to have decreased pain to a 5/10 level with functional use. MET 7.)Patient will increase score on Upper Extremity Functional Index to 35/80 to demonstrate increased functional use of upper extremity. MET Regional Environmental Manager Goals to be met by discharge from OT services: 1.)Patient will be independent with home excercise program. MET 2.)Patient will demonstrate touch all fingertips of hand to palm. Partially MET 3.)Patient will demonstrate finger opposition of thumb to all digits. MET 4.)Patient will be independent with all self-care activities. MET 5.)Patient will be pain free with functional hand use. Partially MET 6.)Patient will increase score on Upper Extremity Functional Index to 50/80 to demonstrate increased functional use of upper extremity. Partially MET Plan: Continue skilled occupational therapy 2-3x a week x 6 weeks to address range of motion, dexterity, fine motor coordination, pain, and edema. Frequency: 2-3 per week Duration: 6 weeks Number of Visits: 12-18 Untimed Services: 22 Minutes Timed Services: 23 Minutes Total Treatment Time: 45 Minutes TONJA Ag/Florian 10/05/2023 documented in this encounter Plan of Treatment Upcoming Encounters Date Type Department Care Team (Late st Contact Info) Description 10/10/2023 1:25 PM EDT NeuroDiagnostic Study Neurophysiology [facility] [address] [facility] [place] [address] Henry Edgar MD 200 [place] [address] 10/12/2023 1:00 PM EDT Rehab Services [address] [phone] Margaret Reyes, OT [facility] [place] [address] 10/13/2023 9:15 AM EDT Rehab Services [address] [phone] Margaret Reyes, OT [facility] [place] [address] 10/21/2023 9:30 AM EDT Rehab Services Occupational [address] [address] [place] [address] [place] [address] 10/25/2023 10:45 AM EDT Rehab Services [address] [address] Margaret Reyes, OT [address] [place] [address] 10/25/2023 1:00 PM EDT Office Visit [facility] 16 [place] [address] Christiano Shields DO 16 [place] [address] Photographer [facility] [address] [place] [address] 10/27/2023 9:15 AM EDT Rehab Services [address] [address] Margaret Reyes, OT [address] [place] [address] 11/01/2023 10:45 AM EDT Rehab Services [address] [address] Magraret Reyes, OT [address] [place] [address] 11/03/2023 9:15 AM EDT Rehab Services Occupational [address] [address] Margaret Reyes, OT [address] [place] [address] 11/08/2023 9:15 AM EDT Rehab Services [address] [address] Margaret Reyes, OT [address] [place] [address] 11/10/2023 9:15 AM EDT Rehab Services [address] [address] [place] [address] [place] [address] 11/14/2023 2:45 PM EDT Imaging [address] [address] 11/15/2023 9:15 AM EDT Rehab Services [address] [address] Margaret Reyes, OT [address] [place] [address] 11/17/2023 9:15 AM EDT Rehab Services [address] [address] Margaret Reyes, OT [address] [place] [address] 11/22/2023 9:15 AM EDT Rehab Services [address] [address] Margaret Reyes, OT [address] [place] [address] 11/24/2023 9:15 AM EDT Rehab Services [address] [address] Margaret Reyes, OT [address] [place] [address] 11/29/2023 9:15 AM EDT Rehab Services Occupational [facility] [address] [facility] [address] [place] [address] Margaret Reyes, OT [address] [place] [address] 12/01/2023 9:15 AM EDT Rehab Services Occupational [facility] 68 [facility] [address] [place] [phone] Margaret Reyes, OT [address] [place] [address] 01/10/2024 2:00 PM EST Office Visit Optometry, [place] 16 [place] [address] Parminder Joyner, ADAN 16 [place] [address] Health Maintenance Due Date Last Done Comments [...] Advance Directives occurred with: Patient Care Teams Manager Of Application Development Relationship Specialty Start Date End Date Bassam Phillip DO 1 [facility] [place] [address] [place] [address] PCP - General Family Medicine 09/23/23 documented as of this encounter
--- OUTSIDE RECORDS SUMMARY | 2023-10-21 01:16 | External Medical Summary | Summary of Care ---
Author Name Unknown Organization [facility] Address [address] [place] [address] Phone [phone] Care Team Providers Care Human Services Program Specialist Name Role Phone KenjiBassam Primary Care Provider [phone] Reason for Visit * Reason Comments Limited Range Of Motion Pain Muscle Weakness * Evaluate & Treat - Unlimited Visits (Within 10 days (routine)) - Authorized Specialty Diagnoses / Procedures Referred By Thierry funk Referred To Contact Occupational Therapy Diagnoses Encounter for other specified aftercare Other specified postprocedural states Procedures EVALUATE & TREAT Bert Méndez MD [address] [address] Referral ID Status Reason Start Date Expiration Date Visits Requested Visits Authorized [id number] Authorized Specialty Services Required 08/09/2023 03/06/2024 [id number] Encounter Details Date Type Department Care Team (Latest Contact Info) Description 09/29/2023 9:15 AM EDT Rehab Services Occupational Therapy [address] [place] [address] Margaret Reyes, MIGDALIA [address] [place] [address] Other specified postprocedural states* Allergies Active Allergy Reactions Criticality Noted Date Comments Adhesive Tape Rash 10/11/2016 Fluconazole 08/12/2021 Latex Rash 10/12/2010 Nystatin 04/04/2017 Skin/facial discoloration documented as of this encounter (statuses as of 09/29/2023) Medications Medication Sig Dispensed Refills Start Date [...] amphetamine-dextro amphet ER (ADDERALL XR) 30 MG [id number] HD (attention deficit hyperactivity disorder), combined type [...] MG/ACT Nasal Solution (Varenicline Tartrate) Administer 1 [place] into nostril in the morning and 1 [place] before bedtime. 4.2 mL 6 07/05/2023 Active Miebo 1.338 GM/ML Ophthalmic Solution (Perfluorohexyloct ane) Instill 1 Drop into eye in the morning and 1 Drop at noon and 1 Drop in the evening and 1 Drop before bedtime. 3 mL 12 07/05/2023 Active documented as of this encounter (statuses as of 09/29/2023) Active Problems Problem Noted Date Diagnosed Date [...] as of this encounter (statuses as of 09/29/2023) Immunizations Name Administration Dates Next Due Pneumococcal [...] of this encounter Progress Notes * Margaret Reyes OT - 09/29/2023 10:22 AM EDT Outpatient Occupational Therapy Daily Progress Note Buck Gagnonn [address] [place] [address] Patient Name: Yelena Rubio Date of : 1965 Age: [age] year old Visit Number: 18 Next Re-Certification Due: Visit Date: 09/29/2023 Insurance: Payor: AET MEDICARE ADVANTAGE Plan: [employer] MEDICARE ADVANTAGE PPO Referring Physician: Bert Méndez MD Return Appointment: 4 weeks from 08/31/2023 Primary Care Physician: Victoriano Han DO Encounter Diagnosis: [Z98.890] Other specified postprocedural states Subjective: Yelena reports her hand is sore from cleaning. She reports she took it easy with her left hand during tasks, but she is tired and her hand was sore after cleaning her living room. Pain Rating: Yleena has complaints of pain. Objective: Manual Therapy: Patient tolerated gentle massage to her palm, digits, and wrist to reduce edema andpain while resting comfortably on pillow top. She tolerated scar massage to decrease adhesions in scar. Therapeutic Exercise: Patient completed AROM exercises today including digit flexion and extension. Assessment: Yelena tolerated treatment session fairly well as detailed above. She reports her handwas sore today. She is due for a re-certification after the next session. Patient would benefit from continued skilled [...] weeks Number of Visits: 12-18 Untimed Services: 0 Minutes Timed Services: 45 Minutes Total Treatment Time: 45 Minutes Margaret Reyes OTR/L 09/29/2023 documented in this encounter Plan of Treatment Upcoming Encounters Date Type Department Care Team ([facility] st Contact Info) Description 09/30/2023 8:30 AM EDT Rehab Services [address] [phone] Margaret Reyes, OT [address] [place] [address] 10/05/2023 1:00 PM EDT Rehab Services [address] [phone] Margaret Reyes, OT [address] [place] [address] 10/10/2023 1:25 PM EDT NeuroDiagnostic Study Neurophysiology [facility] [address] [place] [address] Henry Edgar MD 200 [place] [address] 10/25/2023 1:00 PM EDT Office Visit [facility] [place] [address] [place] [address] Christiano Shields DO 16 [place] [address] Photographer Ayala [place] 16 [place] [address] 11/14/2023 2:45 PM EDT Imaging Radiology, [address] [address] 01/10/2024 2:00 PM EST Office Visit Optometry, [place] [address] [place] [address] Parminder Joyner, OD 16 [place] [address] Health Maintenance Due Date Last Done Comments [...] Advance Directives occurred with: Patient Care Teams Human Services Program Specialist Relationship Specialty Start Date End Date Bassam Phillip DO [address] [place] [address] [place] [address] PCP - General Family Medicine 09/23/23 documented as of this encounter
--- OUTSIDE RECORDS SUMMARY | 2023-10-21 01:16 | External Medical Summary | Summary of Care ---
Author Name Unknown Organization [facility] Address [address] [place] [address] Phone [phone] Care Team Providers Care Ammunition Storekeeper Name Role Phone KenjiBassam Primary Care Provider [phone] Reason for Visit * Reason Comments Pain Limited Range Of Motion Muscle Weakness * Evaluate & Treat - Unlimited Visits (Within 10 days (routine)) - Authorized Specialty Diagnoses / Procedures Referred By Thierry funk Referred To Contact Occupational Therapy Diagnoses Encounter for other specified aftercare Other specified postprocedural states Procedures EVALUATE & TREAT Bert Méndez MD [address] [address] Referral ID Status Reason Start Date Expiration Date Visits Requested Visits Authorized [id number] Authorized Specialty Services Required 08/09/2023 03/06/2024 [id number] Encounter Details Date Type Department Care Team (Latest Contact Info) Description 10/04/2023 1:00 PM EDT Rehab Services Occupational Therapy [address] [place] [address] Margaret Reyes, MIGDALIA [address] [place] [address] Other specified postprocedural states* Allergies [...] amphetamine-dextro amphet ER (ADDERALL XR) 30 MG [id number]:AD HD (attention deficit hyperactivity disorder), combined type [...] MG/ACT Nasal Solution (Varenicline Tartrate) Administer 1 [place] into nostril in the morning and 1 [place] before bedtime. 4.2 mL 6 07/05/2023 Active [...] Therapy Daily Progress Note Buck Gagnonn [address] [place] [address] Patient Name: Yelena Rubio Date of : [...] 2:45 PM EDT Rehab Services Occupational Therapy [facility] [address] [facility] [address] [place] [phone] Margaret Reyes, OT 10[address] [place] [address] 10/10/2023 1:25 PM EDT NeuroDiagnostic Study Neurophysiology [facility] [address] [place] [address] Henry Edgar MD 200 [place] [address] 10/25/2023 1:00 PM EDT [facility] [place], [place] [address] [place] [address] Christiano Shields DO 16 [place] [address] Photographer Ayala [address] [address] 11/14/2023 2:45 PM EDT Imaging Radiology, [place] 68 [place] [address] 01/10/2024 2:00 PM EST Office Visit Optometry, [place] [address] [place] [address] Parminder Joyner OD 16 [place] [address] Health Maintenance Due Date Last Done Comments [...] Advance Directives occurred with: Patient Care Teams Ammunition Storekeeper Relationship Specialty Start Date End Date Bassam Phillip DO [address] [address] [place] [address] PCP - General Family Medicine 09/23/23 documented as of this encounter
--- OUTSIDE RECORDS SUMMARY | 2023-10-21 01:16 | External Medical Summary | Summary of Care ---
Author Name Unknown Organization [facility] Address [address] [place] [address] Phone [phone] Care Team Providers Care Heel Gouger Name Role Phone KenjiBassam Primary Care Provider [phone] Reason for Visit * Reason Comments Limited Range Of Motion Pain Muscle Weakness * Evaluate & Treat - Unlimited Visits (Within 10 days (routine)) - Authorized Specialty Diagnoses / Procedures Referred By Thierry funk Referred To Contact Occupational Therapy Diagnoses Encounter for other specified aftercare Other specified postprocedural states Procedures EVALUATE & TREAT Bert Méndez MD [address] [address] Referral ID Status Reason Start Date Expiration Date Visits Requested Visits Authorized [id number] Authorized Specialty Services Required 08/09/2023 03/06/2024 [id number] Encounter Details Date Type Department Care Team (Latest Contact Info) Description 09/29/2023 9:15 AM EDT Rehab Services Occupational Therapy [address] [place] [address] Margaret Reyes, MIGDALIA [address] [place] [address] Other specified postprocedural states* Allergies [...] amphetamine-dextro amphet ER (ADDERALL XR) 30 MG BL52Kfoxyoemzcs:AD HD (attention deficit hyperactivity disorder), combined type [...] MG/ACT Nasal Solution (Varenicline Tartrate) Administer 1 [place] into nostril in the morning and 1 [place] before bedtime. 4.2 mL 6 07/05/2023 [...] Occupational Therapy Daily Progress Note Buck Gagnonn [address] [place] [address] Patient Name: Yelena Rubio Date of : [...] after cleaning her living room. Pain Rating: Yelena has complaints of pain. [...] Upcoming Encounters Date Type Department Care Team ([facility] st Contact Info) Description 09/30/2023 8:30 AM EDT Rehab Services [address] [phone] Margaret Reyes, OT [address] [place] [address] 10/05/2023 1:00 PM EDT Rehab Services [address] [phone] Margaret Reyes, OT 10[address] [place] [address] 10/10/2023 1:25 PM EDT NeuroDiagnostic Study Neurophysiology [facility] [address] [place] [address] Henry Edgar MD 200 [place] [address] 10/25/2023 1:00 PM EDT Office Visit [facility] [place], [place] 16 [place] [address] Christiano Shields DO 16 [place] [address] Photographer Ayala [place] [address] [place] [address] 11/14/2023 2:45 PM EDT Imaging Radiology, [address] [address] 01/10/2024 2:00 PM EST Office Visit Optometry, [place] 16 [place] [address] Parminder Joyner, OD 16 [place] [address] Health Maintenance Due Date Last Done Comments [...] Advance Directives occurred with: Patient Care Teams Heel Gouger Relationship Specialty Start Date End Date Bassam Phillip DO [address] [address] [place] [address] PCP - General Family Medicine 09/23/23 documented as of this encounter
--- OUTSIDE RECORDS SUMMARY | 2023-10-21 01:16 | External Medical Summary | Summary of Care ---
Author Name Unknown Organization [facility] Address [address] [place] [address] Phone [phone] Care Team Providers Care Fitting Room Inspector Name Role Phone KenjiBassam Primary Care Provider [phone] Reason for Visit * Reason Comments Pain Limited Range Of Motion Muscle Weakness * Evaluate & Treat - Unlimited Visits (Within 10 days (routine)) - Authorized Specialty Diagnoses / Procedures Referred By Thierry funk Referred To Contact Occupational Therapy Diagnoses Encounter for other specified aftercare Other specified postprocedural states Procedures EVALUATE & TREAT Bert Méndez MD [address] [address] Referral ID Status Reason Start Date Expiration Date Visits Requested Visits Authorized [id number] Authorized Specialty Services Required 08/09/2023 03/06/2024 [id number] Encounter Details Date Type Department Care Team (Latest Contact Info) Description 09/27/2023 9:15 AM EDT Rehab Services Occupational Therapy [address] [place] [address] Margaret Reyes, MIGDALIA [address] [place] [address] Other specified postprocedural states* Allergies Active Allergy Reactions Criticality Noted Date Comments Adhesive Tape Rash 10/11/2016 Fluconazole 08/12/2021 Latex Rash 10/12/2010 Nystatin 04/04/2017 Skin/facial discoloration documented as of this encounter (statuses as of 09/27/2023) Medications Medication Sig Dispensed Refills Start Date [...] amphetamine-dextro amphet ER (ADDERALL XR) 30 MG HS08Pmpmcukdsqe:AD HD (attention deficit hyperactivity disorder), combined type [...] MG/ACT Nasal Solution (Varenicline Tartrate) Administer 1 [place] into nostril in the morning and 1 [place] before bedtime. 4.2 mL 6 07/05/2023 Active Miebo 1.338 GM/ML Ophthalmic Solution (Perfluorohexyloct ane) Instill 1 Drop into eye in the morning and 1 Drop at noon and 1 Drop in the evening and 1 Drop before bedtime. 3 mL 12 07/05/2023 Active documented as of this encounter (statuses as of 09/27/2023) Active Problems Problem Noted Date Diagnosed Date [...] as of this encounter (statuses as of 09/27/2023) Immunizations Name Administration Dates Next Due Pneumococcal [...] Progress Notes * Margaret Reyes, OT - 09/27/2023 1:40 PM EDT Outpatient Occupational Therapy Daily Progress Note Buck Gagnonn [address] [place] [address] Patient Name: Yelena Rubio Date of : 1965 Age: [age] year old Visit Number: [id number] Next Re-Certification Due: Visit Date: 09/27/2023 Insurance: Payor: AET MEDICARE ADVANTAGE Plan: [employer] MEDICARE ADVANTAGE PPO Referring Physician: Bert Méndez MD Return Appointment: 4 weeks from 08/31/2023 Primary Care Physician: Victoriano Han DO Encounter Diagnosis: [Z98.890] Other specified postprocedural states Subjective: Yelena reports she is able to make a full fist and that her range of motion has been improving. She reports continued pain along the ulnar side of her hand. She reports she stretches herhand frequently. Pain Rating: Yelena has complaints of pain. Objective: Manual Therapy: Patient tolerated gentle massage to her palm, digits, and wrist to reduce edema andpain while resting comfortably on pillow top. Patient requested special attention to ulnar side of hand today due to increased pain and discomfort. Patient tolerated PROM digit flexion exercises. Therapeutic Exercise: Patient completed AROM exercises today. Patient was able to make a full fist today. Assessment: Yelena tolerated treatment session fairly well as detailed above. She has demonstratedincreased range of motion since beginning therapy. Patient would benefit from continued skilled occupational [...] Treatment Time: 45 Minutes Margaret Reyes OTR/L 09/27/2023 documented in this encounter Plan of Treatment Upcoming Encounters Date Type Department Care Team (Late st Contact Info) Description 09/29/2023 9:15 AM EDT Rehab Services [address] [phone] Margaret Reyes, OT [facility]0 [place] [address] 09/30/2023 9:15 AM EDT Rehab Services [address] [address] Margaret Reyes, OT [address] [place] [address] 10/05/2023 1:00 PM EDT Rehab Services [address] [phone] Margaret Reyes, OT [address] [place] [address] 10/10/2023 1:25 PM EDT NeuroDiagnostic Study Neurophysiology [facility] [address] [facility] [place] [place] [address] Henry Edgar MD 200 [facility] [place] [place] [address] 10/25/2023 1:00 PM EDT Office Visit [facility] [address] [address] Christiano Shields DO 16 [place] [address] Photographer Ayala [place] [address] [place] [address] 11/14/2023 2:45 PM EDT Imaging Radiology, [address] [address] 01/10/2024 2:00 PM EST Office Visit Optometry, [place] 16 [place] [address] Parminder Joyner, OD 16 [place] [address] Health Maintenance Due Date Last Done Comments [...] Advance Directives occurred with: Patient Care Teams Fitting Room Inspector Relationship Specialty Start Date End Date Bassam Phillip DO [address] [place] [address] [place] [address] PCP - General Family Medicine 09/23/23 documented as of this encounter
--- OUTSIDE RECORDS SUMMARY | 2023-10-21 01:16 | External Medical Summary | Summary of Care ---
Author Name Unknown Organization [facility] Address [address] [place] [address] Phone [phone] Care Team Providers Care Wire Bound Box Machine Operator Name Role Phone KenjiBassam Primary Care Provider [phone] Reason for Visit * Reason Comments Pain Limited Range Of Motion Muscle Weakness * Evaluate & Treat - Unlimited Visits (Within 10 days (routine)) - Authorized Specialty Diagnoses / Procedures Referred By Thierry funk Referred To Contact Occupational Therapy Diagnoses Encounter for other specified aftercare Other specified postprocedural states Procedures EVALUATE & TREAT Bert Méndez MD [address] [address] Referral ID Status Reason Start Date Expiration Date Visits Requested Visits Authorized [id number] Authorized Specialty Services Required 08/09/2023 03/06/2024 [id number] Encounter Details Date Type Department Care Team (Latest Contact Info) Description 10/04/2023 1:00 PM EDT Rehab Services Occupational Therapy [address] [place] [address] Margaret Reyes, MIGDALIA [address] [place] [address] Other specified postprocedural states* Allergies [...] amphetamine-dextro amphet ER (ADDERALL XR) 30 MG [id number]:AD HD (attention deficit hyperactivity disorder), combined type [...] MG/ACT Nasal Solution (Varenicline Tartrate) Administer 1 [place] into nostril in the morning and 1 [place] before bedtime. 4.2 mL 6 07/05/2023 Active [...] Occupational Therapy Daily Progress Note Buck Gagnonn [address] [place] [address] Patient Name: Yelena Rubio Date of : [...] 2:45 PM EDT Rehab Services Occupational Therapy [facility] [address] [facility] [address] [place] [phone] Margaret Reyes, OT [address] [place] [address] 10/10/2023 1:25 PM EDT NeuroDiagnostic Study Neurophysiology [facility] 200 [place] [address] Henry Edgar MD 200 [place] [address] 10/25/2023 1:00 PM EDT [facility] [place], [place] 16 [place] [address] Christiano Shields DO 16 [place] [address] Photographer Ayala [address] [address] 11/14/2023 2:45 PM EDT Imaging Radiology, [place] 68 [place] [address] 01/10/2024 2:00 PM EST Office Visit Optometry, [place] 16 [place] [address] Parminder Joyner OD 16 [place] [address] Health Maintenance Due Date Last Done Comments [...] Advance Directives occurred with: Patient Care Teams Wire Bound Box Machine Operator Relationship Specialty Start Date End Date Bassam Phillip DO [address] [address] [place] [address] PCP - General Family Medicine 09/23/23 documented as of this encounter
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
--- OUTSIDE RECORDS SUMMARY | 2023-10-21 01:17 | External Medical Summary | Summary of Care ---
Author Name Unknown Organization [facility] Address [address] [place] [address] Phone [phone] Care Team Providers Care Parking Lot Laborer Name Role Phone Guille Victoriano Lawson DO Primary Care Provider [phone] Reason for Visit * Reason Comments Limited Range Of Motion Pain Muscle Weakness * Evaluate & Treat - Unlimited Visits (Within 10 days (routine)) - Authorized Specialty Diagnoses / Procedures Referred By Thierry funk Referred To Contact Occupational Therapy Diagnoses Encounter for other specified aftercare Other specified postprocedural states Procedures EVALUATE & TREAT Bert Méndez MD [address] [address] Referral ID Status Reason Start Date Expiration Date Visits Requested Visits Authorized [id number] Authorized Specialty Services Required 08/09/2023 03/06/[phone] Encounter Details Date Type Department Care Team (Latest Contact Info) Description 09/14/2023 1:45 PM EDT Rehab Services Occupational Therapy [address] [place] [address] Margaret Reyes, OT [address] [place] [address] Other specified postprocedural states* Allergies Active Allergy Reactions Criticality Noted Date Comments Adhesive Tape Rash 10/11/2016 Fluconazole 08/12/2021 Latex Rash 10/12/2010 Nystatin 04/04/2017 Skin/facial discoloration documented as of this encounter (statuses as of 09/14/2023) Medications Medication Sig Dispensed Refills Start Date [...] amphetamine-dextro amphet ER (ADDERALL XR) 30 MG [id number]:AD HD (attention deficit hyperactivity disorder), combined type [...] MG/ACT Nasal Solution (Varenicline Tartrate) Administer 1 [place] into nostril in the morning and 1 [place] before bedtime. 4.2 mL 6 07/05/2023 Active Miebo 1.338 GM/ML Ophthalmic Solution (Perfluorohexyloct ane) Instill 1 Drop into eye in the morning and 1 Drop at noon and 1 Drop in the evening and 1 Drop before bedtime. 3 mL 12 07/05/2023 Active documented as of this encounter (statuses as of 09/14/2023) Active Problems Problem Noted Date Diagnosed Date [...] as of this encounter (statuses as of 09/14/2023) Immunizations Name Administration Dates Next Due Pneumococcal [...] Progress Notes * Margaret Reyes OT - 09/14/2023 5:07 PM EDT Outpatient Occupational Therapy Daily Progress Note [place] [address] [address] Patient Name: Yelena Rubio Date of : 1965 Age: [age] year old Visit Number: [id number] Next Re-Certification Due: Visit Date: 09/14/2023 Insurance: Payor: [employer] MEDICARE ADVANTAGE Plan: [employer] MEDICARE ADVANTAGE PPO Referring Physician: Bert Méndez MD Return Appointment: 4 weeks from 08/31/2023 Primary Care Physician: Victoriano Han DO Encounter Diagnosis: [Z98.890] Other specified postprocedural states Subjective: Yelena reports she continues to have burning along the ulnar side of her hand. She reports stretching has increased her range of motion. Pain Rating: Yelena has complaints of pain, however, she was unable to rate it. Objective: Manual Therapy: Patient tolerated gentle massage to her palm, digits, and wrist to reduce edema andpain while resting comfortably on pillow top. Patient tolerated manual PROM digit flexion and her fourth digit. Assessment: Yelena tolerated treatment session fairly well as detailed above. Patient would benefit from continued skilled occupational [...] 12-18 Untimed Services: 0 Minutes Timed Services: 40 Minutes Total Treatment Time: 40 Minutes TONJA Ag/Florian 09/14/2023 documented in this encounter Plan of Treatment Upcoming Encounters Date Type Department Care Team (Late st Contact Info) Description 09/20/2023 9:15 AM EDT Rehab Services [address] [place] [address] [place] [address] [place] [address] 09/22/2023 9:15 AM EDT Rehab Services [address] [place] [address] Margaret Reyes, OT [address] [place] [address] 09/23/2023 9:15 AM EDT Rehab Services [address] [phone] Margaret Reyes, OT [address] [place] [address] 09/27/2023 9:15 AM EDT Rehab Services [address] [place] [phone] Margaret Reyes, OT [address] [place] [address] 09/29/2023 9:15 AM EDT Rehab Services [address] [place] [address] Margaret Reyes, OT [address] [place] [address] 09/30/2023 9:15 AM EDT Rehab Services [address] [place] [address] Margaret Reyes, OT [address] [place] [address] 10/04/2023 9:15 AM EDT Rehab Services [address] [place] [address] Margaret Reyes, OT [address] [place] [address] 10/05/2023 1:00 PM EDT Rehab Services Occupational [address] [place] [address] Margaret Reyes, OT [address] [place] [address] 10/25/2023 1:00 PM EDT Office Visit [facility] [place], [place] [address] [place] [address] Christiano Shields DO [address] [place] [address] Photographer Ayala [address] [address] 11/14/2023 2:45 PM EDT Imaging Radiology, [address] [address] 01/10/2024 2:00 PM EST Office Visit Optometry, [place] [address] [place] [address] Parminder Joyner OD [address] [place] [address] Health Maintenance Due Date Last Done Comments [...] Advance Directives occurred with: Patient Care Teams Parking Lot Laborer Relationship Specialty Start Date End Date GuilleDharmeshVictorianomikayla Lawson DO PCP - General Family Medicine 01/18/22 documented as of this encounter
--- OUTSIDE RECORDS SUMMARY | 2023-10-21 01:17 | External Medical Summary | Summary of Care ---
Author Name Unknown Organization [facility] Address [address] [place] [address] Phone [phone] Care Team Providers Care Costumer Name Role Phone Guille Victoriano Lawson DO Primary Care Provider [phone] Reason for Visit * Reason Comments Limited Range Of Motion Pain Muscle Weakness * Evaluate & Treat - Unlimited Visits (Within 10 days (routine)) - Authorized Specialty Diagnoses / Procedures Referred By Thierry funk Referred To Contact Occupational Therapy Diagnoses Encounter for other specified aftercare Other specified postprocedural states Procedures EVALUATE & TREAT Bert Méndez MD [address] [address] Referral ID Status Reason Start Date Expiration Date Visits Requested Visits Authorized [id number] Authorized Specialty Services Required 08/09/2023 03/06/2024 [id number] Encounter Details Date Type Department Care Team (Latest Contact Info) Description 09/14/2023 1:45 PM EDT Rehab Services Occupational Therapy [address] [place] [address] Margaret Reyes, OT [address] [place] [address] Other specified postprocedural states* Allergies [...] amphetamine-dextro amphet ER (ADDERALL XR) 30 MG [id number]:AD HD (attention deficit hyperactivity disorder), combined type [...] MG/ACT Nasal Solution (Varenicline Tartrate) Administer 1 [place] into nostril in the morning and 1 [place] before bedtime. 4.2 mL 6 07/05/2023 Active [...] Outpatient Occupational Therapy Daily Progress Note Buck [address] [address] Patient Name: Yelena Rubio Date of : [...] Description 09/20/2023 9:15 AM EDT Rehab Services [address] [place] [address] [place] [address] [place] [address] 09/22/2023 9:15 AM EDT Rehab [place] [address] [place] [address] Margaret Reyes, OT [address] [place] [address] 09/23/2023 9:15 AM EDT [facility]hab Services [address] [address] Margaret Reyes, OT [address] [place] [address] 09/27/2023 9:15 AM EDT Rehab Services [address] [place] [address] Margaret Reyes, OT [address] [place] [address] 09/29/2023 9:15 AM EDT Rehab Services [address] [place] [address] Margaret Reyes, OT [address] [place] [address] 09/30/2023 9:15 AM EDT Rehab Services [address] [place] [address] Margaret Reyes, OT [address] [place] [address] 10/04/2023 9:15 AM EDT Rehab Services [address] [place] [address] Margaret Reyes, OT [address] [place] [address] 10/05/2023 1:00 PM EDT Rehab Services Occupational [address] [place] [address] Margaret Reyes, OT [address] [place] [address] 10/25/2023 1:00 PM EDT Office Visit [facility] Eye [place], [place] [address] [place] [address] Christiano Shields DO 16 [place] [address] Photographer Ayala [address] [address] 11/14/2023 2:45 PM EDT Imaging Radiology, [address] [address] 01/10/2024 2:00 PM EST Office Visit Optometry, [place] [address] [place] [address] Parminder Joyner OD 16 [place] [address] Health Maintenance Due Date Last Done Comments [...] Advance Directives occurred with: Patient Care Teams Costumer Relationship Specialty Start Date End Date GuilleDharmeshVictorianomikayla Lawson DO PCP - General Family Medicine 01/18/22 documented as of this encounter
--- OUTSIDE RECORDS SUMMARY | 2023-10-21 01:17 | External Medical Summary | Summary of Care ---
Author Name Unknown Organization [facility] Address [address] [place] [address] Phone [phone] Care Team Providers Care Sap Grc Security Name Role Phone KenjiBassam Primary Care Provider [phone] Reason for Visit * Reason Comments Limited Range Of Motion Pain Edema Muscle Weakness * Evaluate & Treat - Unlimited Visits (Within 10 days (routine)) - Authorized Specialty Diagnoses / Procedures Referred By Thierry funk Referred To Contact Occupational Therapy Diagnoses Encounter for other specified aftercare Other specified postprocedural states Procedures EVALUATE & TREAT Bert Méndez MD [address] [address] Referral ID Status Reason Start Date Expiration Date Visits Requested Visits Authorized [id number] Authorized Specialty Services Required 08/09/2023 03/06/2024 [id number] Encounter Details Date Type Department Care Team (Latest Contact Info) Description 09/23/2023 9:15 AM EDT Rehab Services Occupational Therapy [address] [place] [address] Margaret Reyes, MIGDALIA [address] [place] [address] Other specified postprocedural states* Allergies Active Allergy Reactions Criticality Noted Date Comments Adhesive Tape Rash 10/11/2016 Fluconazole 08/12/2021 Latex Rash 10/12/2010 Nystatin 04/04/2017 Skin/facial discoloration documented as of this encounter (statuses as of 09/23/2023) Medications Medication Sig Dispensed Refills Start Date [...] amphetamine-dextro amphet ER (ADDERALL XR) 30 MG [id number]:AD HD (attention deficit hyperactivity disorder), combined type [...] MG/ACT Nasal Solution (Varenicline Tartrate) Administer 1 [place] into nostril in the morning and 1 [place] before bedtime. 4.2 mL 6 07/05/2023 Active Miebo 1.338 GM/ML Ophthalmic Solution (Perfluorohexyloct ane) Instill 1 Drop into eye in the morning and 1 Drop at noon and 1 Drop in the evening and 1 Drop before bedtime. 3 mL 12 07/05/2023 Active documented as of this encounter (statuses as of 09/23/2023) Active Problems Problem Noted Date Diagnosed Date [...] as of this encounter (statuses as of 09/23/2023) Immunizations Name Administration Dates Next Due Pneumococcal [...] Progress Notes * Margaret Reyes OT - 09/23/2023 10:15 AM EDT Outpatient Occupational Therapy Daily Progress Note Buck [place] [address] [place] [address] Patient Name: Yelena Rubio Date of : 1965 Age: [age] year old Visit Number: 16 Next Re-Certification Due: Visit Date: 09/23/2023 Insurance: Payor: A[employer] MEDICARE ADVANTAGE Plan: A[employer] MEDICARE ADVANTAGE PPO Referring Physician: Bert Méndez MD Return Appointment: 4 weeks from 08/31/2023 Primary Care Physician: Victoriano Han DO Encounter Diagnosis: [Z98.890] Other specified postprocedural states Subjective: Yelena reports discomfort along the ulnar side of her hand. She reports she has been being careful with her hand. She reports she has an EMG on October 09. Pain Rating: Yelena has no complaints of pain. Objective: Manual Therapy: Patient tolerated gentle massage to her palm, digits, and wrist to reduce edema andpain while resting comfortably on pillow top. Patient tolerated manual PROM digit flexion and her fourth digit. She demonstrated increased range of motion and no pain today. She continues to report discomfort when stretching. Assessment: Yelena tolerated treatment session fairly well [...] Care Team (Late st Contact Info) Description 09/27/2023 9:15 AM EDT Rehab Services [address] [address] Margaret Reyes, OT [address] [place] [address] 09/29/2023 9:15 AM EDT Rehab Services [address] [address] Margaret Reyes, OT [address] [place] [address] 09/30/2023 9:15 AM EDT Rehab Services [address] [place] [address] Margaret Reyes, OT [address] [place] [address] 10/04/2023 9:15 AM EDT Rehab Services [address] [place] [address] Margaret Reyes, OT [address] [place] [address] 10/05/2023 1:00 PM EDT Rehab Services [address] [address] Margaret Reyes, OT [address] [place] [address] 10/10/2023 1:25 PM EDT NeuroDiagnostic Study Neurophysiology Fito Messina [place] [address] [place] [address] Henry Edgar MD [address] [place] [address] 10/25/2023 1:00 PM EDT [facility] [place], [address] [address] Christiano Shields DO 16 [place] [address] [address] 11/14/2023 2:45 PM EDT Imaging Radiology, [address] [address] 01/10/2024 2:00 PM EST Office Visit Optometry, [address] [address] Parminder Joyner, ADAN 16 [place], [place] [address] Health Maintenance Due Date Last Done Comments [...] Advance Directives occurred with: Patient Care Teams Sap Grc Security Relationship Specialty Start Date End Date Bassam Phillip DO [address] [place] [address] [place] [address] PCP - General Family Medicine 09/23/23 documented as of this encounter
--- OUTSIDE RECORDS SUMMARY | 2023-10-21 01:17 | External Medical Summary | Summary of Care ---
Author Name Unknown Organization [facility] Address [address] [place] [address] Phone [phone] Care Team Providers Care Steel Erector Name Role Phone Victoriano Han DO Primary Care Provider [phone] Reason for Visit * Reason Onset Date Comments Appointment 09/06/2023 Encounter Details Date Type Department Care Team (Late st Contact Info) Description 09/06/2023 Telephone Ophthalmology, [facility] [address] [place], [place] [address] Services, Scheduling [address] [place] [address] Appointment Allergies Active Allergy Reactions Criticality Noted Date Comments Adhesive Tape Rash 10/11/2016 Fluconazole 08/12/2021 Latex Rash 10/12/2010 Nystatin 04/04/2017 Skin/facial discoloration documented as of this encounter (statuses as of 09/12/2023) Medications Medication Sig Dispensed Refills Start Date [...] amphetamine-dextro amphet ER (ADDERALL XR) 30 MG BF46Yfbscvrqkjq:AD HD (attention deficit hyperactivity disorder), combined type [...] MG/ACT Nasal Solution (Varenicline Tartrate) Administer 1 [place] into nostril in the morning and 1 [place] before bedtime. 4.2 mL 6 07/05/2023 Active Miebo 1.338 GM/ML Ophthalmic Solution (Perfluorohexyloct ane) Instill 1 Drop into eye in the morning and 1 Drop at noon and 1 Drop in the evening and 1 Drop before bedtime. 3 mL 12 07/05/2023 Active documented as of this encounter (statuses as of 09/12/2023) Active Problems Problem Noted Date Diagnosed Date [...] as of this encounter (statuses as of 09/12/2023) Immunizations Name Administration Dates Next Due Pneumococcal [...] encounter Miscellaneous Notes * Telephone Encounter - Kelly Jarrell RN - 09/12/2023 8:44 AM EDT Patient scheduled 10/25/[address] Shields for floppy eyelid eval which is appropriate. Will close outthis encounter. * Telephone Encounter - Jus Berkowitz RN - 09/09/2023 3:45 PM EDT Called and LVM for pattient to call back. * Telephone Encounter - Sapna Flowers CONSTANZA - 09/09/2023 2:48 PM EDT Good Afternoon This pt wants to speak to a nurse is very upset she cannot get an appt christoph. Please contact pt * Telephone Encounter - Barbara Villanueva OSA - 09/07/2023 10:32 AM EDT Pt called checking on appt. Does not want to wait until 10/24 appt currently scheduled. Pt is on fast pass list. * Telephone Encounter - Sparkle Whitaker OSA - 09/06/2023 3:51 PM EDT Who is patient being scheduled with? Dr Hanson What is the reason the patient needs to be seen sooner? Floppy eyelid Eval per Ar Perry Pt saidsymptoms are worsening and can't wait until NA When is the next available appointment? Sept. Pt was scheduled and went to for her appt but was scheduled in [place]. Pt didn't have follow up since. [facility] [place]: NOTIFY PATIENT: PLEASE ALLOW US UP TO 48 HOURS FOR A RESPONSE Retinal injections should not be scheduled further out than a week or two. Any appointment related messages , [place] [id number] If appointment needed 6 weeks or less, deshawn as high priority. [facility] [place]: NOTIFY PATIENT: PLEASE ALLOW US UP TO 48 HOURS FOR A RESPONSE Any appointment related messages ,[place] [id number] [place]: NOTIFY PATIENT: PLEASE ALLOW US UP TO 48 HOURS FOR A RESPONSE Appointment related concerns: Create and Send Telephone Encounter to P [id number] documented in this encounter Plan of Treatment Upcoming Encounters Date Type Department Care Team (Late st Contact Info) Description 09/14/2023 1:45 PM EDT Rehab Services [address] [address] Margaret Reyes, OT [address] [place] [address] 09/20/2023 9:15 AM EDT Rehab Services [address] [address] Margaret Reyes, OT [address] [place] [address] 09/22/2023 9:15 AM EDT Rehab Services [address] [address] Margaret Reyes, OT [address] [place] [address] 09/23/2023 9:15 AM EDT Rehab Services [address] [address] Margaret Reyes, OT [address] [place] [address] 09/27/2023 9:15 AM EDT Rehab Services [address] [address] [place] [address] [place] [address] 09/29/2023 9:15 AM EDT Rehab Services [address] [address] [place] [address] [place] [address] 09/30/2023 9:15 AM EDT Rehab Services [address] [address] [place] [address] [place] [address] 10/04/2023 9:15 AM EDT Rehab Services [address] [address] Margaret Reyes, OT [address] [place] [address] 10/05/2023 1:00 PM EDT Rehab Services [address] [address] Margaret Reyes, OT [address] [place] [address] 10/25/2023 1:00 PM EDT Office Visit [facility] Eye [place], [address] [address] Christiano Shields DO 16 [place] [address] Photographer Ayala [place] 16 [place] [address] 11/14/2023 2:45 PM EDT Imaging Radiology, [address] [address] 01/10/2024 2:00 PM EST Office Visit Optometry, [address] [address] Parminder Joyner OD 16 [place] [address] Health Maintenance Due Date Last Done Comments [...] Advance Directives occurred with: Patient Care Teams Steel Erector Relationship Specialty Start Date End Date Victoriano Han DO [address] [address] [place] [address] PCP - General Family Medicine 01/18/22 documented as of this encounter
--- OUTSIDE RECORDS SUMMARY | 2023-10-21 01:17 | External Medical Summary | Summary of Care ---
Author Name Unknown Organization [facility] Address [address] [place] [address] Phone [phone] Care Team Providers Care Dental Equipment Repairer Name Role Phone Victoriano Han DO Primary Care Provider [phone] Reason for Visit * Reason Onset Date Comments Appointment 09/06/2023 Encounter Details Date Type Department Care Team (Late st Contact Info) Description 09/06/2023 Telephone Ophthalmology, [facility] [address] [place], [place] [phone] Services, Scheduling [address] [place] [address] Appointment Allergies Active Allergy Reactions Criticality Noted Date Comments Adhesive Tape Rash 10/11/2016 Fluconazole 08/12/2021 Latex Rash 10/12/2010 Nystatin 04/04/2017 Skin/facial discoloration documented as of this encounter (statuses as of 09/10/2023) Medications Medication Sig Dispensed Refills Start Date [...] amphetamine-dextro amphet ER (ADDERALL XR) 30 MG HT16Jutjxuriznu:AD HD (attention deficit hyperactivity disorder), combined type [...] MG/ACT Nasal Solution (Varenicline Tartrate) Administer 1 [place] into nostril in the morning and 1 [place] before bedtime. 4.2 mL 6 07/05/2023 Active Miebo 1.338 GM/ML Ophthalmic Solution (Perfluorohexyloct ane) Instill 1 Drop into eye in the morning and 1 Drop at noon and 1 Drop in the evening and 1 Drop before bedtime. 3 mL 12 07/05/2023 Active documented as of this encounter (statuses as of 09/10/2023) Active Problems Problem Noted Date Diagnosed Date [...] as of this encounter (statuses as of 09/10/2023) Immunizations Name Administration Dates Next Due Pneumococcal [...] encounter Miscellaneous Notes * Telephone Encounter - Jus Berkowitz RN - 09/09/2023 3:45 PM EDT Called and LVM for pattient to call back. * Telephone Encounter - Sapna Flowers OSA - 09/09/2023 2:48 PM EDT Good Afternoon This pt wants to speak to a nurse is very upset she cannot get an appt christoph. Please contact pt * Telephone Encounter - Barbara Villanueva, CONSTANZA - 09/07/2023 10:32 AM EDT Pt called [...] for her appt but was scheduled in [place]. Pt didn't have follow up since. CENTRAL [facility]ION: NOTIFY PATIENT: PLEASE ALLOW US UP TO 48 HOURS FOR A RESPONSE Retinal injections should not be scheduled further out than a week or two. Any appointment related messages , [place] [phone] If appointment needed 6 weeks or less, deshawn as high priority. [facility] [place]: NOTIFY PATIENT: PLEASE ALLOW US UP TO 48 HOURS FOR A RESPONSE Any appointment related messages ,[place] [id number] [place]: NOTIFY PATIENT: PLEASE ALLOW US UP TO 48 HOURS FOR A RESPONSE Appointment related concerns: Create and Send Telephone Encounter to P [id number] documented in this encounter Plan of Treatment Upcoming Encounters Date Type Department Care Team (Late st Contact Info) Description 09/14/2023 1:45 PM EDT Rehab Services Occupational Therapy [address] [address] Margaret Reyes, OT [address] [place] [address] 09/20/2023 9:15 AM EDT Rehab Services [address] [address] Margaret Reyes, OT [address] [place] [address] 09/22/2023 9:15 AM EDT Rehab Services [address] [address] Margaret Reyes, OT [address] [place] [address] 09/23/2023 9:15 AM EDT Rehab Services [address] [address] Margaret Reyes, OT [address] [place] [address] 09/27/2023 9:15 AM EDT Rehab Services [address] [address] Margaret Reyes, OT [address] [place] [address] 09/29/2023 9:15 AM EDT Rehab Services [address] [address] Margaret Reyes, OT [address] [place] [address] 09/30/2023 9:15 AM EDT Rehab Services [address] [address] Margaret Reyes, OT [address] [place] [address] 10/04/2023 9:15 AM EDT Rehab Services [address] [place] [address] Margaret Reyes, OT [address] [place] [address] 10/05/2023 1:00 PM EDT Rehab Services [address] [place] [address] Margaret Reyes, OT [address] [place] [address] 10/25/2023 1:00 PM EDT Office Visit [facility] Eye [place], [place] [address] [place] [address] Christiano Shields DO 16 [place] [address] Photographer Ayala De Leon 16 [place] [address] 11/14/2023 2:45 PM EDT Imaging Radiology, [address] [address] 01/10/2024 2:00 PM EST Office Visit Optometry, [place] [address] [place] [address] Parminder Joyner OD 16 [place] [address] Health Maintenance Due Date Last Done Comments [...] Advance Directives occurred with: Patient Care Teams Dental Equipment Repairer Relationship Specialty Start Date End Date Giulle, Victorianomikayla Lawson DO [address] [address] [place] [address] PCP - General Family Medicine 01/18/22 documented as of this encounter
--- OUTSIDE RECORDS SUMMARY | 2023-10-21 01:18 | External Medical Summary | Summary of Care ---
Author Name Unknown Organization [facility] Address [address] [place] [address] Phone [phone] Care Team Providers Care Forensic Analyst Name Role Phone Guille Victoriano Lawson DO Primary Care Provider [phone] Reason for Visit * Reason Comments Pain Limited Range Of Motion Muscle Weakness * Evaluate & Treat - Unlimited Visits (Within 10 days (routine)) - Authorized Specialty Diagnoses / Procedures Referred By Thierry funk Referred To Contact Occupational Therapy Diagnoses Encounter for other specified aftercare Other specified postprocedural states Procedures EVALUATE & TREAT Bert Méndez MD [address] [address] Referral ID Status Reason Start Date Expiration Date Visits Requested Visits Authorized [id number] Authorized Specialty Services Required 08/09/2023 03/06/2024 999 [id number] Encounter Details Date Type Department Care Team (Latest Contact Info) Description 09/09/2023 9:15 AM EDT Rehab Services Occupational Therapy [address] [place] [address] Margaret Reyes, OT [address] [place] [address] Other specified postprocedural states* Allergies Active Allergy Reactions Criticality Noted Date Comments Adhesive Tape Rash 10/11/2016 Fluconazole 08/12/2021 Latex Rash 10/12/2010 Nystatin 04/04/2017 Skin/facial discoloration documented as of this encounter (statuses as of 09/09/2023) Medications Medication Sig Dispensed Refills Start Date [...] amphetamine-dextro amphet ER (ADDERALL XR) 30 MG SF27Nskqligylmc:AD HD (attention deficit hyperactivity disorder), combined type [...] MG/ACT Nasal Solution (Varenicline Tartrate) Administer 1 [place] into nostril in the morning and 1 [place] before bedtime. 4.2 mL 6 07/05/2023 Active Miebo 1.338 GM/ML Ophthalmic Solution (Perfluorohexyloct ane) Instill 1 Drop into eye in the morning and 1 Drop at noon and 1 Drop in the evening and 1 Drop before bedtime. 3 mL 12 07/05/2023 Active documented as of this encounter (statuses as of 09/09/2023) Active Problems Problem Noted Date Diagnosed Date [...] as of this encounter (statuses as of 09/09/2023) Immunizations Name Administration Dates Next Due Pneumococcal [...] Progress Notes * Margaret Reyes OT - 09/09/2023 12:42 PM EDT Outpatient Occupational Therapy Daily Progress Note Buck [address] [address] Patient Name: Yelena Rubio Date of : 1965 Age: [age] year old Visit Number: 14 Next Re-Certification Due: Visit Date: 09/09/2023 Insurance: Payor: AETNA MEDICARE ADVANTAGE Plan: AETNA MEDICARE ADVANTAGE PPO Referring Physician: Bert Méndez MD Return Appointment: 4 weeks from 08/31/2023 Primary Care Physician: Victoriano Han DO Encounter Diagnosis: [Z98.890] Other specified postprocedural states Subjective: Yelena reports she is still having a burning sensation in her ulnar side of her hand. She does not think anything relieves this however, she does note that after massage hand overall feels better. Pain Rating: Yelena reported 6-7/10 pain. Objective: Manual Therapy: Patient tolerated gentle massage to her palm, digits, and wrist to reduce edema andpain while resting comfortably on pillow top. Patient tolerated manual PROM digit flexion and her fourth digit was approximately 0.25 cm away from touching her palm at the end of the session. Assessment: Yelena tolerated treatment session fairly well as detailed above. Patient demonstratesincreased digit range of motion. Patient would benefit from continued skilled occupational [...] 40 Minutes Total Treatment Time: 40 Minutes Margaret Reyes OTR/L 09/09/2023 documented in this encounter Plan of Treatment Upcoming Encounters Date Type Department Care Team (Late st Contact Info) Description 09/14/2023 1:45 PM EDT Rehab Services [address] [address] Margaret Reyes, OT [address] [place] [address] 09/20/2023 9:15 AM EDT Rehab Services [address] [address] Margaret Reyes, OT [address] [place] [address] 09/22/2023 9:15 AM EDT Rehab Services [address] [address] Margaret Reyes, OT [address] [place] [address] 09/23/2023 9:15 AM EDT Rehab Services [address] [address] Margaret Reyes, OT [address] [place] [address] 09/27/2023 9:15 AM EDT Rehab Services [address] [address] Margaret Reyes, OT [address] [place] [address] 09/29/2023 9:15 AM EDT Rehab Services [address] [address] [place] [address] [place] [address] 09/30/2023 9:15 AM EDT Rehab Services [address] [address] Margaret Reyes, OT [address] [place] [address] 10/04/2023 9:15 AM EDT Rehab Services [address] [address] Margaret Reyes, OT [address] [place] [address] 10/05/2023 1:00 PM EDT Rehab Services [address] [address] Margaret Reyes, OT [address] [place] [address] 10/25/2023 1:00 PM EDT Office Visit [facility] Eye [place], [place] [address] [place] [address] Christiano Shields DO 16 [place] [address] Photographer Ayala [place] 16 [place] [address] 11/14/2023 2:45 PM EDT Imaging Radiology, [address] [address] 01/10/2024 2:00 PM EST Office Visit Optometry, [place] [address] [place] [address] Parminder Joyner, ADAN 16 [place] [address] Health Maintenance Due Date Last Done Comments [...] Advance Directives occurred with: Patient Care Teams Forensic Analyst Relationship Specialty Start Date End Date Victoriano Han DO [address] [address] [place] [address] PCP - General Family Medicine 01/18/22 documented as of this encounter
--- OUTSIDE RECORDS SUMMARY | 2023-10-21 01:18 | External Medical Summary | Summary of Care ---
Author Name Unknown Organization [facility] Address [address] [place] [address] Phone [phone] Care Team Providers Care Online Merchandising Coordinator Name Role Phone Guille Victoriano Renny MOISE Primary Care Provider [phone] [phone] Reason for Visit * Reason Comments Pain Limited Range Of Motion Muscle Weakness Edema * Evaluate & Treat - Unlimited Visits (Within 10 days (routine)) - Authorized Specialty Diagnoses / Procedures Referred By Thierry funk Referred To Contact Occupational Therapy Diagnoses Encounter for other specified aftercare Other specified postprocedural states Procedures EVALUATE & TREAT Bert Méndez MD [address] [address] Referral ID Status Reason Start Date Expiration Date Visits Requested Visits Authorized [id number] Authorized Specialty Services Required 08/09/2023 03/06/2024 [id number] Encounter Details Date Type Department Care Team (Latest Contact Info) Description 09/07/2023 1:00 PM EDT Rehab Services Occupational Therapy [address] [place] [address] Margaret Reyes, OT [address] [place] [address] Other specified postprocedural states* Allergies Active Allergy Reactions Criticality Noted Date Comments Adhesive Tape Rash 10/11/2016 Fluconazole 08/12/2021 Latex Rash 10/12/2010 Nystatin 04/04/2017 Skin/facial discoloration documented as of this encounter (statuses as of 09/07/2023) Medications Medication Sig Dispensed Refills Start Date [...] amphetamine-dextro amphet ER (ADDERALL XR) 30 MG [id number]:AD HD (attention deficit hyperactivity disorder), combined type [...] MG/ACT Nasal Solution (Varenicline Tartrate) Administer 1 [place] into nostril in the morning and 1 [place] before bedtime. 4.2 mL 6 07/05/2023 Active Miebo 1.338 GM/ML Ophthalmic Solution (Perfluorohexyloct ane) Instill 1 Drop into eye in the morning and 1 Drop at noon and 1 Drop in the evening and 1 Drop before bedtime. 3 mL 12 07/05/2023 Active documented as of this encounter (statuses as of 09/07/2023) Active Problems Problem Noted Date Diagnosed Date [...] as of this encounter (statuses as of 09/07/2023) Immunizations Name Administration Dates Next Due Pneumococcal [...] Progress Notes * Margaret Reyes, OT - 09/07/2023 2:38 PM EDT Outpatient Occupational Therapy Daily Progress Note Buck Jang [address] [address] Patient Name: Yelena Rubio Date of : 1965 Age: [age] year old Visit Number: 13 Next Re-Certification Due: Visit Date: 09/07/2023 Insurance: Payor: A[employer] MEDICARE ADVANTAGE Plan: AET[employer] MEDICARE ADVANTAGE PPO Referring Physician: Bert Méndez MD Return Appointment: 4 weeks from 08/31/2023 Primary Care Physician: Victoriano Han DO Encounter Diagnosis: [Z98.890] Other specified postprocedural states Subjective: Yelena reported the burning along her ulnar aspect of her left hand has gotten a lot better. She reports she has noticed an increase in digit range of motion. She reports she has been completing her home exercises. She reports she recently went shopping and has started to use her hand during light activities. Pain Rating: Yelena reported 6-7/10 pain. Objective: Manual Therapy: Patient tolerated gentle massage to her palm, digits, and wrist to reduce edema andpain while resting comfortably on pillow top. Patient tolerated manual PROM digit flexion. Therapeutic Exercise: Patient completed gentle range of motion exercises with her wrist and digits.Patient completed 20 towel scrunches. Assessment: Yelena tolerated treatment session fairly well [...] Treatment Time: 45 Minutes Margaret Reyes OTR/L 09/07/2023 documented in this encounter Plan of Treatment Upcoming Encounters Date Type Department Care Team (Late st Contact Info) Description 09/09/2023 9:15 AM EDT Rehab Services [address] [place] [address] [place] [address] [place] [address] 09/14/2023 1:45 PM EDT Rehab Services [address] [place] [address] Margaret Reyes, OT [address] [place] [address] 09/20/2023 9:15 AM EDT Rehab Services [address] [place] [address] Margaret Reyes, OT [address] [place] [address] 09/22/2023 9:15 AM EDT Rehab Services [address] [place] [address] Margaret Reyes, OT [address] [place] [address] 09/23/2023 9:15 AM EDT Rehab Services [address] [place] [address] [place] [address] [place] [address] 09/27/2023 9:15 AM EDT Rehab Services Occupational [address] [address] Margaret Reyes, OT [address] [place] [address] 09/29/2023 9:15 AM EDT Rehab Services [address] [address] MaryledaMargaret, OT [address] [place] [address] 09/30/2023 9:15 AM EDT Rehab Services [address] [address] Margaret Reyes, OT [address] [place] [address] 10/04/2023 9:15 AM EDT Rehab Services [address] [address] Margaret Reyes, OT [address] [place] [address] 10/05/2023 1:00 PM EDT Rehab Services [address] [address] Margaret Reyes, OT [address] [place] [address] 10/25/2023 1:00 PM EDT Office Visit [facility] [address] [place] [address] Christiano Shields DO [address] [place] [address] Photographer Ayala [place] [address] [place] [address] 11/14/2023 2:45 PM EDT Imaging Radiology, [address] [address] 01/10/2024 2:00 PM EST Office Visit Optometry, [place] 16 [place] [address] Parminder Joyner, ADAN 16 [place] [address] Health Maintenance Due Date Last Done Comments [...] Advance Directives occurred with: Patient Care Teams Online Merchandising Coordinator Relationship Specialty Start Date End Date Victoriano Han DO [address] [address] [place] [address] PCP - General Family Medicine 01/18/22 documented as of this encounter
--- OUTSIDE RECORDS SUMMARY | 2023-10-21 01:18 | External Medical Summary | Summary of Care ---
Author Name Unknown Organization [facility] Address [address] [place] [address] Phone [phone] Care Team Providers Care Test Designer Name Role Phone Guille Victoriano Renny MOISE Primary Care Provider [phone] Reason for Visit * Reason Comments Muscle Weakness Limited Range Of Motion Pain Edema * Evaluate & Treat - Unlimited Visits (Within 10 days (routine)) - Authorized Specialty Diagnoses / Procedures Referred By Thierry funk Referred To Contact Occupational Therapy Diagnoses Encounter for other specified aftercare Other specified postprocedural states Procedures EVALUATE & TREAT Bert Méndez MD [address] [address] Referral ID Status Reason Start Date Expiration Date Visits Requested Visits Authorized [id number] Authorized Specialty Services Required 08/09/2023 03/06/2024 [id number] Encounter Details Date Type Department Care Team (Latest Contact Info) Description 09/06/2023 9:15 AM EDT Rehab Services Occupational Therapy [address] [place] [address] Margaret Reyes, OT [facility] [place] [address] Other specified postprocedural states* Allergies Active Allergy Reactions Criticality Noted Date Comments Adhesive Tape Rash 10/11/2016 Fluconazole 08/12/2021 Latex Rash 10/12/2010 Nystatin 04/04/2017 Skin/facial discoloration documented as of this encounter (statuses as of 09/06/2023) Medications Medication Sig Dispensed Refills Start Date [...] amphetamine-dextro amphet ER (ADDERALL XR) 30 MG [id number]:AD HD (attention deficit hyperactivity disorder), combined type [...] MG/ACT Nasal Solution (Varenicline Tartrate) Administer 1 [place] into nostril in the morning and 1 [place] before bedtime. 4.2 mL 6 07/05/2023 Active Miebo 1.338 GM/ML Ophthalmic Solution (Perfluorohexyloct ane) Instill 1 Drop into eye in the morning and 1 Drop at noon and 1 Drop in the evening and 1 Drop before bedtime. 3 mL 12 07/05/2023 Active documented as of this encounter (statuses as of 09/06/2023) Active Problems Problem Noted Date Diagnosed Date [...] as of this encounter (statuses as of 09/06/2023) Immunizations Name Administration Dates Next Due Pneumococcal [...] Progress Notes * Margaret Reyes OT - 09/06/2023 10:06 AM EDT Outpatient Occupational Therapy Daily Progress Note Buck Jang [address] [address] Patient Name: Yelena Rubio Date of : 1965 Age: [age] year old Visit Number: 12 Next Re-Certification Due: Visit Date: 09/06/2023 Insurance: Payor: AETNA MEDICARE ADVANTAGE Plan: AETNA MEDICARE ADVANTAGE PPO Referring Physician: Bert Méndez MD Return Appointment: 4 weeks from 08/31/2023 Primary Care Physician: Victoriano Han DO Encounter Diagnosis: [Z98.890] Other specified postprocedural states Subjective: Yelena reported the burning along her ulnar aspect of her left hand has decreased, however, it is still there. She reports she has been stressed recently. She reports she has been weaning out of her brace as directed by her referring provider. Pain Rating: Yelena reported pain at rest and during activity. Objective: Manual Therapy: Patient tolerated gentle massage to her palm, digits, and wrist to reduce edema andpain while resting comfortably on pillow top. Therapeutic Exercise: Patient completed gentle range of motion exercises with her wrist and digits. Assessment: Yelena tolerated treatment session fairly well as detailed above. She reports gentle massage helps to reduce her pain and discomfort. Patient would benefit from continued skilled occupational [...] Treatment Time: 45 Minutes Margaret Reyes OTR/L 09/06/2023 documented in this encounter Plan of Treatment Upcoming Encounters Date Type Department Care Team (Late st Contact Info) Description 09/07/2023 1:00 PM EDT Rehab Services [address] [address] Margaret Reyes, OT [address] [place] [address] 09/09/2023 9:15 AM EDT Rehab Services [address] [address] Margaret Reyes, OT [address] [place] [address] 09/14/2023 1:45 PM EDT Rehab Services [address] [address] Margaret Reyes, OT [address] [place] [address] 09/20/2023 9:15 AM EDT Rehab Services [address] [address] Margaret Reyes, OT [address] [place] [address] 09/22/2023 9:15 AM EDT Rehab Services [address] [address] Margaret Reyes, OT [address] [place] [address] 09/23/2023 9:15 AM EDT Rehab Services [address] [address] Margaret Reyes, OT [address] [place] [address] 09/27/2023 9:15 AM EDT Rehab Services [address] [address] Margaret Reyes, OT [address] [place] [address] 09/29/2023 9:15 AM EDT Rehab Services [address] [address] Margaret Reyes, OT [address] [place] [address] 09/30/2023 9:15 AM EDT Rehab Services [address] [address] Margaret Reyes, OT [address] [place] [address] 10/04/2023 9:15 AM EDT Rehab Services [address] [address] Margaret Reyes, OT [address] [place] [address] 10/05/2023 1:00 PM EDT Rehab Services [address] [place] [address] Margaret Reyes, OT [address] [place] [address] 10/25/2023 1:00 PM EDT Office Visit [address] [phone] Christiano Shields DO 16 [place] [address] Ayala Electrocardiograph Repairer [place] 16 [facility] [place] [address] 11/14/2023 2:45 PM EDT Imaging Radiology, [address] [address] 01/10/2024 2:00 PM EST Office Visit Optometry, [place] 16 [place] [address] Parminder Joyner OD 16 [place] [address] Health Maintenance Due Date Last Done Comments [...] Screening 07/15/2027 HPV/Co-Test 07/15/2027 07/14/2022 Hepatitis B Completed 02/07/2014, 0710/2013, 07/25/2013 Pneumococcal Vaccine: Pediatrics (0 to 5 Years) and At-Risk Patients (6 to 64 Years) Completed 02/17/2022, 03/10/2015, 10/15/2013 GARDASIL-HPV IMMUNIZATION SERIES Aged Out No longer eligible based on [...] Advance Directives occurred with: Patient Care Teams Test Designer Relationship Specialty Start Date End Date Victoriano Han DO 1 [facility] [address] [address] [place] [address] PCP - General Family Medicine 01/18/22 documented as of this encounter
--- OUTSIDE RECORDS SUMMARY | 2023-10-21 01:18 | External Medical Summary | Summary of Care ---
Author Name Unknown Organization [facility] Address [address] [place] [address] Phone [phone] Care Team Providers Care Mold Making Supervisor Name Role Phone Guille Victoriano Lawson DO Primary Care Provider [phone] Reason for Visit * Reason Comments Pain Limited Range Of Motion Muscle Weakness * Evaluate & Treat - Unlimited Visits (Within 10 days (routine)) - Authorized Specialty Diagnoses / Procedures Referred By Thierry funk Referred To Contact Occupational Therapy Diagnoses Encounter for other specified aftercare Other specified postprocedural states Procedures EVALUATE & TREAT Bert Méndez MD [address] [address] Referral ID Status Reason Start Date Expiration Date Visits Requested Visits Authorized [id number] Authorized Specialty Services Required 08/09/2023 03/06/2024 [id number] Encounter Details Date Type Department Care Team (Latest Contact Info) Description 09/09/2023 9:15 AM EDT Rehab Services Occupational Therapy [address] [place] [address] Margaret Reyes, OT [address] [place] [address] Other specified postprocedural states* Allergies [...] amphetamine-dextro amphet ER (ADDERALL XR) 30 MG [id number]:AD HD (attention deficit hyperactivity disorder), combined type [...] MG/ACT Nasal Solution (Varenicline Tartrate) Administer 1 [place] into nostril in the morning and 1 [place] before bedtime. 4.2 mL 6 07/05/2023 Active [...] Outpatient Occupational Therapy Daily Progress Note Buck [address] [address] Patient Name: Yelena Rubio Date of : [...] Description 09/14/2023 1:45 PM EDT Rehab Services [address] [address] Margaret Reyes, OT [address] [place] [address] 09/20/2023 9:15 AM EDT Rehab Services [address] [address] Margaret Reyes, OT [address] [place] [address] 09/22/2023 9:15 AM EDT Rehab Services [address] [address] Margaret Reyes, OT [address] [place] [address] 09/23/2023 9:15 AM EDT Rehab Services [address] [address] Margaret Reyes, OT [address] [place] [address] 09/27/2023 9:15 AM EDT Rehab Services [address] [address] Margaret Reyes, OT [address] [place] [address] 09/29/2023 9:15 AM EDT Rehab Services [address] [address] [place] [address] [place] [address] 09/30/2023 9:15 AM EDT Rehab Services [address] [address] Margaret Reyes, OT [address] [place] [address] 10/04/2023 9:15 AM EDT Rehab Services [address] [address] Margaret Reyes, OT [address] [place] [address] 10/05/2023 1:00 PM EDT Rehab Services [address] [address] Margaret Reyes, OT [address] [place] [address] 10/25/2023 1:00 PM EDT Office Visit [facility] Eye [place], [place] [address] [place] [address] Christiano Shields DO 16 [place] [address] Photographer Ayala [place] 16 [place] [address] 11/14/2023 2:45 PM EDT Imaging Radiology, [address] [address] 01/10/2024 2:00 PM EST Office Visit Optometry, [place] [address] [place] [address] Parminder Joyner, ADAN 16 [place] [address] Health Maintenance Due Date Last Done Comments [...] Advance Directives occurred with: Patient Care Teams Mold Making Supervisor Relationship Specialty Start Date End Date Victoriano Han DO [address] [address] [place] [address] PCP - General Family Medicine 01/18/22 documented as of this encounter
--- OUTSIDE RECORDS SUMMARY | 2023-10-21 01:18 | External Medical Summary | Summary of Care ---
Author Name Unknown Organization [facility] Address [address] [place] [address] Phone [phone] Care Team Providers Care Highway Worker Name Role Phone Guille Victoriano Lawson DO Primary Care Provider +[phone] Reason for Visit * Reason Comments Limited Range Of Motion Muscle Weakness * Evaluate & Treat - Unlimited Visits (Within 10 days (routine)) - Authorized Specialty Diagnoses / Procedures Referred By Thierry funk Referred To Contact Occupational Therapy Diagnoses Encounter for other specified aftercare Other specified postprocedural states Procedures EVALUATE & TREAT Bert Méndez MD [address] [address] Referral ID Status Reason Start Date Expiration Date Visits Requested Visits Authorized [id number] Authorized Specialty Services Required 08/09/2023 03/06/2024 [id number] Encounter Details Date Type Department Care Team (Latest Contact Info) Description 09/05/2023 2:30 PM EDT Rehab Services Occupational Therapy [address] [place] [address] Margaret Reyes, MIGDALIA [address] [place] [address] Other specified postprocedural states* Allergies Active Allergy Reactions Criticality Noted Date Comments Adhesive Tape Rash 10/11/2016 Fluconazole 08/12/2021 Latex Rash 10/12/2010 Nystatin 04/04/2017 Skin/facial discoloration documented as of this encounter (statuses as of 09/05/2023) Medications Medication Sig Dispensed Refills Start Date [...] amphetamine-dextro amphet ER (ADDERALL XR) 30 MG NA71Huywzogvktn:AD HD (attention deficit hyperactivity disorder), combined type [...] MG/ACT Nasal Solution (Varenicline Tartrate) Administer 1 [place] into nostril in the morning and 1 [place] before bedtime. 4.2 mL 6 07/05/2023 Active Miebo 1.338 GM/ML Ophthalmic Solution (Perfluorohexyloct ane) Instill 1 Drop into eye in the morning and 1 Drop at noon and 1 Drop in the evening and 1 Drop before bedtime. 3 mL 12 07/05/2023 Active documented as of this encounter (statuses as of 09/05/2023) Active Problems Problem Noted Date Diagnosed Date [...] as of this encounter (statuses as of 09/05/2023) Immunizations Name Administration Dates Next Due Pneumococcal [...] Progress Notes * Margaret Reyes, OT - 09/05/2023 3:32 PM EDT Outpatient Occupational Therapy Daily Progress Note Buck Jang [address] [address] Patient Name: Yelena Rubio Date of : 1965 Age: [age] year old Visit Number: 11 Next Re-Certification Due: Visit Date: 09/05/2023 Insurance: Payor: AETNA MEDICARE ADVANTAGE Plan: AET[employer] MEDICARE ADVANTAGE PPO Referring Physician: Bert Méndez MD Return Appointment: 4 weeks from 08/31/2023 Primary Care Physician: Victoriano Han DO Encounter Diagnosis: [Z98.890] Other specified postprocedural states Subjective: Yelena reported she called Dr. Méndez's office this morning regarding a burning sensation along the ulnar side of her hand up to her elbow. She reports they think it may be nerve issues and she is scheduled for a follow- up appointment on 09/19/2023. She reports she has no decreased sensation and massage has helped relieve her symptoms. Pain Rating: Yelena reported pain at rest and during activity. Objective: Manual Therapy: Patient tolerated gentle massage to her palm, digits, and wrist to reduce edema andpain while resting comfortably on pillow top. Therapeutic Exercise: Patient completed gentle range of motion exercises with her wrist and digits.She completed towel scrunches and towel rolling exercises. She tolerated all exercises well. Assessment: Yelena tolerated treatment session well as detailed above. She reports she is able to bear weight as tolerated. She will contact her referring provider if her burning symptom worsens or spreads. Patient would benefit from continued skilled occupational therapy services to address pain,range of motion, fine motor coordination, dexterity, scar management, and strengthening when appropriate. Plan: Continue skilled occupational therapy 2-3x a week x 6 weeks to address range of motion, dexterity, fine motor coordination, pain, and edema. Frequency: 2-3 per week Duration: 6 weeks Number of Visits: 12-18 Untimed Services: 0 Minutes Timed Services: 60 Minutes Total Treatment Time: 60 Minutes TONJA Ag/Florian 09/05/2023 documented in this encounter Plan of Treatment Upcoming Encounters Date Type Department Care Team (Late st Contact Info) Description 09/06/2023 9:15 AM EDT Rehab Services [address] [address] Margaret Reyes, OT [address] [place] [address] 09/07/2023 1:00 PM EDT Rehab Services [address] [place] [address] Margaret Reyes, OT [address] [place] [address] 09/09/2023 9:15 AM EDT Rehab Services [address] [address] Margaret Reyes, OT [address] [place] [address] 09/14/2023 1:45 PM EDT Rehab Services [address] [place] [address] Margaret Reyes OT [address] [place] [address] 09/20/2023 9:15 AM EDT Rehab Services [address] [place] [address] Margaret Reyes, OT [address] [place] [address] 09/22/2023 9:15 AM EDT Rehab Services [address] [place] [address] [place] [address] [place] [address] 09/23/2023 9:15 AM EDT Rehab Services [address] [place] [address] Margaret Reyes, OT [address] [place] [address] 09/27/2023 9:15 AM EDT Rehab Services [address] [place] [address] Margaret Reyes, OT [address] [place] [address] 09/29/2023 9:15 AM EDT Rehab Services [address] [address] Margaret Reyes, OT [address] [place] [address] 09/30/2023 9:15 AM EDT Rehab Services [address] [address] [place] [address] [place] [address] 10/04/2023 9:15 AM EDT Rehab Services [address] [address] Margaret Reyes, OT [address] [place] [address] 10/05/2023 1:00 PM EDT Rehab Services Occupational Therapy [address] [place] [address] Margaret Reyes, OT [address] [place] [address] 10/25/2023 1:00 PM EDT [facility] [place] [place] 16 [place] [address] Christiano Shields DO 16 [place] [address] Photographer Ayala [place] [address] [place] [address] 11/14/2023 2:45 PM EDT Imaging Radiology, [address] [address] 01/10/2024 2:00 PM EST Office Visit Optometry, [place] 16 [place] [address] Parminder Joyner, ADAN 16 [place] [address] Health Maintenance Due Date Last Done Comments [...] HPV/Co-Test 07/15/2027 07/14/2022 Hepatitis B Completed 02/07/2014, 10/2013, 07/25/2013 Pneumococcal Vaccine: Pediatrics (0 to 5 [...] Advance Directives occurred with: Patient Care Teams Highway Worker Relationship Specialty Start Date End Date Victoriano Han DO [address] [place] [address] PCP - General Family Medicine 01/18/22 documented as of this encounter
--- OUTSIDE RECORDS SUMMARY | 2023-10-21 01:18 | External Medical Summary | Summary of Care ---
Author Name Unknown Organization [facility] Address [address] [place] [address] Phone [phone] Care Team Providers Care Catcher Plug Name Role Phone Guille Victoriano Renny MOISE Primary Care Provider [phone] Reason for Visit * Reason Comments Muscle Weakness Limited Range Of Motion Pain Edema * Evaluate & Treat - Unlimited Visits (Within 10 days (routine)) - Authorized Specialty Diagnoses / Procedures Referred By Thierry funk Referred To Contact Occupational Therapy Diagnoses Encounter for other specified aftercare Other specified postprocedural states Procedures EVALUATE & TREAT Bert Méndez MD [address] [address] Referral ID Status Reason Start Date Expiration Date Visits Requested Visits Authorized [id number] Authorized Specialty Services Required 08/09/2023 03/06/2024 [id number] Encounter Details Date Type Department Care Team (Latest Contact Info) Description 09/06/2023 9:15 AM EDT Rehab Services Occupational Therapy [address] [place] [address] Margaret Reyes, OT [facility] [place] [address] Other specified postprocedural states* Allergies [...] amphetamine-dextro amphet ER (ADDERALL XR) 30 MG [id number]:AD HD (attention deficit hyperactivity disorder), combined type [...] MG/ACT Nasal Solution (Varenicline Tartrate) Administer 1 [place] into nostril in the morning and 1 [place] before bedtime. 4.2 mL 6 07/05/2023 Active [...] Therapy Daily Progress Note Buck Jang [address] [address] Patient Name: Yelena Rubio Date of : [...] Description 09/07/2023 1:00 PM EDT Rehab Services [address] [address] Margaret Reyes, OT [address] [place] [address] 09/09/2023 9:15 AM EDT Rehab Services [address] [address] Margaret Reyes, OT [address] [place] [address] 09/14/2023 1:45 PM EDT Rehab Services [address] [address] Margaret Reyes, OT [address] [place] [address] 09/20/2023 9:15 AM EDT Rehab Services [address] [address] Margaret Reyes, OT [address] [place] [address] 09/22/2023 9:15 AM EDT Rehab Services [address] [address] Margaret Reyes, OT [address] [place] [address] 09/23/2023 9:15 AM EDT Rehab Services [address] [address] Margaret Reyes, OT [address] [place] [address] 09/27/2023 9:15 AM EDT Rehab Services [address] [address] Margaret Reyes, OT [address] [place] [address] 09/29/2023 9:15 AM EDT Rehab Services [address] [address] Margaret Reyes, OT [address] [place] [address] 09/30/2023 9:15 AM EDT Rehab Services [address] [address] Margaret Reyes, OT [address] [place] [address] 10/04/2023 9:15 AM EDT Rehab Services [address] [address] Margaret Reyes, OT [address] [place] [address] 10/05/2023 1:00 PM EDT Rehab Services [address] [place] [address] Margaret Reyes, OT [address] [place] [address] 10/25/2023 1:00 PM EDT Office Visit [address] [phone] Christiano Shields DO [address] [place] [address] Ayala Pit Furnace Operator Coulter [address] [facility] [place] [address] 11/14/2023 2:45 PM EDT Imaging Radiology, [address] [address] 01/10/2024 2:00 PM EST Office Visit Optometry, [place] [address] [place] [address] Parminder Joyner OD [address] [place] [address] Health Maintenance Due Date Last Done Comments [...] Advance Directives occurred with: Patient Care Teams Catcher Plug Relationship Specialty Start Date End Date Victoriano Han DO [facility] [place] [address] [place] [address] PCP - General Family Medicine 01/18/22 documented as of this encounter
--- OUTSIDE RECORDS SUMMARY | 2023-10-21 01:19 | External Medical Summary | Summary of Care ---
Author Name Unknown Organization [facility] Address [address] [place] [address] Phone [phone] Care Team Providers Care Meatcutter Name Role Phone Guille Victoriano Lawson DO Primary Care Provider [phone] Reason for Visit * Reason Comments Muscle Weakness Limited Range Of Motion Pain * Evaluate & Treat - Unlimited Visits (Within 10 days (routine)) - Authorized Specialty Diagnoses / Procedures Referred By Thierry funk Referred To Contact Occupational Therapy Diagnoses Encounter for other specified aftercare Other specified postprocedural states Procedures EVALUATE & TREAT Bert Méndez MD [address] [address] Referral ID Status Reason Start Date Expiration Date Visits Requested Visits Authorized [id number] Authorized Specialty Services Required 08/09/2023 03/06/2024 [id number] Encounter Details Date Type Department Care Team (Latest Contact Info) Description 09/02/2023 9:15 AM EDT Rehab Services Occupational Therapy [address] [place] [address] Margaret Reyes, OT [address] [place] [address] Other specified postprocedural states* Allergies Active Allergy Reactions Criticality Noted Date Comments Adhesive Tape Rash 10/11/2016 Fluconazole 08/12/2021 Latex Rash 10/12/2010 Nystatin 04/04/2017 Skin/facial discoloration documented as of this encounter (statuses as of 09/02/2023) Medications Medication Sig Dispensed Refills Start Date [...] amphetamine-dextro amphet ER (ADDERALL XR) 30 MG [id number]:AD HD (attention deficit hyperactivity disorder), combined type [...] MG/ACT Nasal Solution (Varenicline Tartrate) Administer 1 [place] into nostril in the morning and 1 [place] before bedtime. 4.2 mL 6 07/05/2023 Active Miebo 1.338 GM/ML Ophthalmic Solution (Perfluorohexyloct ane) Instill 1 Drop into eye in the morning and 1 Drop at noon and 1 Drop in the evening and 1 Drop before bedtime. 3 mL 12 07/05/2023 Active documented as of this encounter (statuses as of 09/02/2023) Active Problems Problem Noted Date Diagnosed Date [...] as of this encounter (statuses as of 09/02/2023) Immunizations Name Administration Dates Next Due Pneumococcal [...] Progress Notes * Margaret Reyes, OT - 09/02/2023 1:27 PM EDT Images from the original note were not included. Outpatient Occupational Therapy Re-Certification [address] [address] In accordance with accepted medical standards, I hereby certify that the below named patient requires rehabilitation services for the problem(s) identified below. As such, I request that the center'sprofessional staff evaluate and assess the patient's need for said services on a regular basis for my approval (to be reviewed every 90 days). Provider Signature: Date: Time: Please sign and return via FAX [phone] Patient Name: Yelena Rubio Date of : 1965 Age: [age] year old Visit Number: [id number] Next Re-Certification Due: Visit Date: 09/02/2023 Insurance: Payor: AET MEDICARE ADVANTAGE Plan: [employer] MEDICARE ADVANTAGE PPO Referring Physician: Bert Méndez MD Return Appointment: 4 weeks from 08/31/2023 Primary Care Physician: Victoriano Han DO Encounter Diagnosis: [Z98.890] Other specified postprocedural states Subjective: Yelena was pleasant and cooperative during re-certification session. She reports she did not get a chance to call to ask if she was allowed to bear weight through her hand or use her hand for tasks, therefore, this information was requested via fax and patient reports she will contact her doctor's office. Pain Rating: Yelena reported 5/10 pain at rest and during activity. Objective: Patient participated in obtaining new measurements as detailed below. Upper Extremity Range of Motion: Normal Range* LUE AROM 08/09/2023 LUE AROM 09/02/2023 Forearm Pronation 0/90 0/90 0/90 Forearm Supination 0/90 0/90 0/90 Wrist Flexion 0/70 0/8 0/45 Wrist Extension 0/80 0/12 0/48 Wrist Radial Deviation 0/20 0/8 0/28 Wrist Ulnar Deviation 0/30 0/17 0/22 Digit 1 MCP Flexion 0/50 0/40 0/44 Digit 1 IP Flexion 0/80 0/64 0/64 Digit 2 MCP Flexion 0/90 -20/38 0/40 Digit 2 PIP Flexion 0/90 0/30 0/64 Digit 2 DIP Flexion 0/90 0/32 0/50 Digit 3 MCP Flexion 0/90 -20/40 0/46 Digit 3 PIP Flexion 0/90 0/16 0/72 Digit 3 DIP Flexion 0/90 0/30 0/46 Digit 4 MCP Flexion 0/90 +10/24 0/46 Digit 4 PIP Flexion 0/90 0/16 0/66 Digit 4 DIP Flexion 0/90 0/30 0/44 Digit 5 MCP Flexion 0/90 -20/10 0/48 Digit 5 PIP Flexion 0/90 0/6 0/64 Digit 5 DIP Flexion 0/90 0/4 0/64 *Normal range of motion listed above is from the [employer]. Upper Extremity Strength Assessment: LUE MMT Pronation NWB Supination NWB Wrist Flexion NWB Wrist Extension NWB Wrist Radial Deviation NWB Wrist Ulnar Deviation NWB *UTR-Ado-csfcjc bearing (Requested information for patient's weightbearing status on 09/02/2023 via fax.) Junior Art Director Strength: Junior Art Director Type Left Gross Grasp NWB Lateral Pinch NWB 3-Jaw Hansel NWB Pincer NWB *NWB- Non-weight bearing (Requested information for patient's weightbearing status on 09/02/2023 viafax.) Fine Motor Coordination (9 Hole Peg Test): Hand Seconds 08/09/2023 Comments 08/09/2023 Seconds 09/02/2023 Right Hand 18.28 seconds 15.50 seconds Left Hand 42.03 seconds Patient dropped 2 pegs during test. 25.62 seconds Fine Motor Dexterity: Comments 08/09/2023 Comments [...] was unable to oppose pad of digit 2 to palm by 1.5 cm. Patient was unable to oppose pad of digit 3 to palm by 1.5 cm. Patient was unable to oppose pad of digit 4 to palm by 1.75 cm. Patient was able to oppose pad of digit 5 to palm. Finger to Palm Translation [...] 08/09/2023 Left 08/09/2023 Right 09/02/2023 Left 09/02/2023 Wrist 16.2 cm 15.6 cm 15.2 cm 15.3 cm Distal Palmar Crease 18.2 cm 18.5 cm 18.2 cm 18 cm Thumb Metacarpophalangeal Joint 6.3 cm 6.4 cm 6 cm 6 cm Index Proximal Phalanx 6.2 cm 6.3 cm 6.2 cm 6.1 cm Middle Proximal Phalanx 6.2 cm 6.6 cm 6 cm 5.9 cm Ring Proximal Phalanx 5.8 cm 6.5 cm 5.5 cm 5.6 cm Little Proximal Phalanx 5 cm 6.3 cm 5 cm 5 cm Total 63.9 cm 66.2 cm 62.1 cm 61.9 cm Difference (Between Right and Left) 2.3 cm 0.2 cm Sensation: Patient reports a constant stinging sensation along the ulnar side of her hand. Patient reports occasional numbness. She reports she is still able to feel hot and cold. Upper Extremity Functional Index (UEFI): Completed on 08/09/2023 to determine if patient is currently having any difficulty with various functional activities due to her upper extremity problem for which she is currently seeking attention. Patient's overall score was 5/80 with 80 being the highest score indicating [...] 80 Upper Extremity Functional Index (UEFI): Completed today [...] Totals: 0 11 10 0 0 Total: Manual Therapy: Patient tolerated gentle massage to her palm, digits, and wrist to reduce edema andpain while resting comfortably on pillow top. Patient completed gentle range of motion exercises with her wrist and digits. Patient Education and Home Exercise Program: Person(s) Taught: Patient Topic: Discussed present condition, treatment rationale, progression of treatment, home exercise program, edema management, desensitization (see program below) Method: Verbal, demonstration, and written Outcome: Patient participated in review of home exercise programs. Desensitization Program The most effective way to treat hypersensitivity is by repetitively touching the sensitive area. The following program will assist in desensitizing the area, and should be completed for 10 minutes every hour. Beginning with Cotton, or the fabric that causes the least discomfort, rub the sensitive area lightly for 10 minutes or until the area feels numb and no longer sensitive For the next session, return to the same material and rub as before. If the area causes no abnormalsensation, progress to the next material. DO NOT RETURN TO THE SOFTER TEXTURE ONCE YOU HAVE MOVED ON. Progress through the list until you complete it 1. Fur/cotton balls 2. Flannel cloth 3. Cotton fabric 4.Tal fabric 5. Burlap 6. Raw peas/beans 7. Raw rice 8. Raw macaroni 9.Metal (paper clips, BBs) 10. Tapping on edge of table 11. Vibration Assessment: Yelena is a 58 year old who is status post left open reduction internal fixation on 07/21/2023. She has made good progress toward establishing her therapy goals as detailed below. She hasmet five of her goals. She would benefit from continuing to address her digit range of motion so that she is able to make a full fist. Patient's weightbearing status was requested today to determine if patient's strength can be addressed at this time. She recently had a follow-up appointment with her referring provider who stated she can begin weaning out of her brace. Patient continues to have decreased range of motion, fine motor coordination, and dexterity. Patient's pain has decreased overall, however, she continues to report pain at rest and increased pain during activity. Patient will benefit from continued skilled occupational therapy services to address pain, range of motion, fine motor coordination, dexterity, scar management, and strengthening when appropriate. Patient is in agreement with plan of care. Goals: Short Term Goals to be met by 2-3 weeks from initial evaluation: 1.) Patient will increase AROM by 3-5 in each affected area. MET, however, will continue to address ROM so that patient can make a full fist. 2.) Patient will increase m/s by 1/2 grade when allowed to address strength. Updated 3.) Patient will increase rubber engraver strength by 3-5# when allowed to address strength. Updated 4.) Patient will increase pinch strengths by 1-3# each when allowed to address strength. Updated 5.) Patient will increase fine motor coordination by decreasing time on 9 hole peg test by 2-4 seconds. MET 6.) Patient to have decreased pain to a 5/10 level with functional use. MET 7.) Patient will increase score on Upper Extremity Functional Index to 35/80 to demonstrate increased functional use of upper extremity. Partially MET Loom Winder Tender Goals to be met by discharge from OT services: 1.) Patient will be independent with home excercise program. MET 2.) Patient will demonstrate touch all fingertips of hand to palm. Partially MET 3.) Patient will demonstrate finger opposition of thumb to all digits. MET 4.) Patient will be independent with all self-care activities. Partially MET 5.) Patient will be pain free with functional hand use. Partially MET 6.) Patient will increase score on Upper Extremity Functional Index to 50/80 to demonstrate increased functional use of upper extremity. Partially MET Plan: Continue skilled occupational therapy 2-3x a week x 6 weeks to address range of motion, dexterity, fine motor coordination, pain, and edema. Frequency: 2-3 per week Duration: 6 weeks Number of Visits: 12-18 Untimed Services: 0 Minutes Timed Services: 50 Minutes Total Treatment Time: 50 Minutes TONJA Ag/Florian 09/02/2023 documented in this encounter Plan of Treatment Upcoming Encounters Date Type Department Care Team (Late st Contact Info) Description 09/06/2023 9:15 AM EDT Rehab Services [address] [address] Margraet Reyes, OT [address] [place] [address] 09/07/2023 1:00 PM EDT Rehab Services [address] [address] Margaret Reyes, OT [address] [place] [address] 09/09/2023 9:15 AM EDT Rehab Services [address] [address] Margaret Reyes, OT [address] [place] [address] 09/14/2023 1:45 PM EDT Rehab Services [address] [address] Margaret Reyes, OT [address] [place] [address] 09/20/2023 9:15 AM EDT Rehab Services [address] [address] [place] [address] [place] [address] 09/22/2023 9:15 AM EDT Rehab Services [address] [address] Margaret Reyes, OT [address] [place] [address] 09/23/2023 9:15 AM EDT Rehab Services [address] [address] Margaret Reyes, OT [address] [place] [address] 09/27/2023 9:15 AM EDT Rehab Services [address] [address] Margaret Reyes, OT [address] [place] [address] 09/29/2023 9:15 AM EDT Rehab Services [address] [address] Margaret Reyes, OT [address] [place] [address] 09/30/2023 9:15 AM EDT Rehab Services [address] [address] Margaret Reyes, OT [address] [place] [address] 10/04/2023 9:15 AM EDT Rehab Services [address] [address] Magraret Reyes, OT [address] [place] [address] 10/05/2023 1:00 PM EDT Rehab Services [address] [address] Margaret Reyes, OT [address] [place] [address] 10/25/2023 1:00 PM EDT [facility] [place] [address] [place] [address] Christiano Shields DO [address] [place] [address] Ayala, Manufacturing Specialist Mary[place] [address] [place] [address] 11/14/2023 2:45 PM EDT Imaging Radiology, [address] [address] 01/10/2024 2:00 PM EST Office Visit Optometry, [place] [address] [place] [address] Parminder Joyner, ADAN [address] [place] [address] Health Maintenance Due Date Last Done Comments Lipid Panel 1965 Cologuard 2010 Colonoscopy 2010 Sigmoidoscopy 2010 Zoster Vaccines (1 of 2) 2015 Mammogram 03/14/2016 03/14/2015, 03/27/2014 Depression Monitoring 06/10/2016 06/11/2015 Colorectal Cancer Screening 01/25/2017 Fecal Occult Blood Test 01/25/2017 01/26/2016 COVID-19 Vaccine ( season) 2022 11/26/2021, 08/27/2021, 02/19/2021, Additional history exists DTaP,Tdap,and Td Vaccines (2 - Td or Tdap) 10/16/2023 10/15/2013 Pap Smear 07/14/2025 07/14/2022 Diabetes Screening 07/13/2026 07/14/2023, 1 , 01/26/2016, Additional history exists Cervical Cancer Screening 07/15/2027 HPV/Co-Test 07/15/2027 07/14/2022 Hepatitis B Completed 02/07/2014, 0710/2013, 07/25/2013 Pneumococcal Vaccine: Pediatrics (0 to 5 Years) and At-Risk Patients (6 to 64 Years) Completed 02/17/2022, 03/10/2015, 10/15/2013 Influenza Vaccine (FLU shot) Completed , 11/26/2021, 12/31/2019, Additional history exists GARDASIL-HPV IMMUNIZATION SERIES Aged Out No longer [...] Advance Directives occurred with: Patient Care Teams Meatcutter Relationship Specialty Start Date End Date Victoriano Han DO 1 [facility] Leeroy Mateo [facility] [place] [address] PCP - General Family Medicine 01/18/22 documented as of this encounter
--- OUTSIDE RECORDS SUMMARY | 2023-10-21 01:19 | External Medical Summary | Summary of Care ---
Author Name Unknown Organization [facility] Address [address] [place] [address] Phone [phone] Care Team Providers Care Cotton Tier Name Role Phone Guille Victoriano Lawson DO Primary Care Provider [phone] Reason for Visit * Reason Comments Limited Range Of Motion Pain Muscle Weakness * Evaluate & Treat - Unlimited Visits (Within 10 days (routine)) - Authorized Specialty Diagnoses / Procedures Referred By Thierry funk Referred To Contact Occupational Therapy Diagnoses Encounter for other specified aftercare Other specified postprocedural states Procedures EVALUATE & TREAT Bert Méndez MD [address] [address] Referral ID Status Reason Start Date Expiration Date Visits Requested Visits Authorized [id number] Authorized Specialty Services Required 08/09/2023 03/06/2024 999 [id number] Encounter Details Date Type Department Care Team (Latest Contact Info) Description 09/01/2023 3:30 PM EDT Rehab Services Occupational Therapy [address] [place] [address] Margaret Reyes, OT [address] [place] [address] Other specified postprocedural states* Allergies Active Allergy Reactions Criticality Noted Date Comments Adhesive Tape Rash 10/11/2016 Fluconazole 08/12/2021 Latex Rash 10/12/2010 Nystatin 04/04/2017 Skin/facial discoloration documented as of this encounter (statuses as of 09/01/2023) Medications Medication Sig Dispensed Refills Start Date [...] amphetamine-dextro amphet ER (ADDERALL XR) 30 MG [id number]:AD HD (attention deficit hyperactivity disorder), combined type [...] MG/ACT Nasal Solution (Varenicline Tartrate) Administer 1 [place] into nostril in the morning and 1 [place] before bedtime. 4.2 mL 6 07/05/2023 Active Miebo 1.338 GM/ML Ophthalmic Solution (Perfluorohexyloct ane) Instill 1 Drop into eye in the morning and 1 Drop at noon and 1 Drop in the evening and 1 Drop before bedtime. 3 mL 12 07/05/2023 Active documented as of this encounter (statuses as of 09/01/2023) Active Problems Problem Noted Date Diagnosed Date [...] as of this encounter (statuses as of 09/01/2023) Immunizations Name Administration Dates Next Due Pneumococcal [...] Progress Notes * Margaret Reyes, OT - 09/01/2023 4:32 PM EDT Outpatient Occupational Therapy Daily Progress Note [facility] [address] [place] [address] Patient Name: Yelena Rubio Date of : 1965 Age: [age] year old Visit Number: [id number] Insurance: Payor: [employer] MED[employer]ARE ADVANTAGE Plan: [employer] MED[employer]ARE [employer]VANTAGE PPO Referring Physician: Bert Méndez MD Return Appointment: 08/31/2023 Primary Care Physician: Victoriano Han DO Encounter Diagnosis: [Z98.890] Other specified postprocedural states Subjective: Yelena was pleasant and cooperative during treatment session. She states she had her follow-up appointment with Dr. Méndez today and reports he told her she could begin weaning out of herbrace. She reports he told her to wear it during physical activity. She is unsure if she is allowedto bear weight through her hand or begin lifting with it. She reports she will contact her doctor to ask what her weight bearing status is and if she is allowed to submerge her hand in water soon. Pain Rating: Patient has complaints of pain in the ulnar side of her hand, however, she was unable to rate pain. Objective: Patient was seen for outpatient occupational therapy services x 45 minutes as follows: Manual Therapy: Patient tolerated gentle massage to her palm, digits, and wrist to reduce edema andpain while resting comfortably on pillow top. Patient completed gentle range of motion exercises with her wrist and digits. Treatment Sequence: Manual Therapy Assessment: Yelena continues to tolerate gentle massage to reduce pain and edema. She reports her follow-up appointment with orthopaedics went well this morning and she is able to wean out of her brace when resting. She is unsure of her weight bearing status, therefore, she will contact her doctor. She is due for a re-certification at her next treatment session. She would benefit from continued skilled occupational therapy services to maximize her range of motion, fine motor coordination, dexterity, and decrease her pain and edema. Plan: Continue occupational therapy services per plan of care. Untimed Services: 0 Minutes Timed Services: 45 Minutes Total Minutes: 45 Minutes Margaret Reyes OTR/L 09/01/2023 documented in this encounter Plan of Treatment Upcoming Encounters Date Type Department Care Team ([facility] st Contact Info) Description 09/02/2023 9:15 AM EDT Rehab Services Occupational [address] [address] Margaret Reyes, OT [address] [place] [address] 09/06/2023 9:15 AM EDT Rehab Services [address] [address] Margaret Reyes, OT [address] [place] [address] 09/07/2023 1:00 PM EDT Rehab Services [address] [address] Margaret Reyes OT [address] [place] [address] 09/09/2023 9:15 AM EDT Rehab Services [address] [address] Margaret Reyes, OT [address] [place] [address] 09/14/2023 1:45 PM EDT Rehab Services [address] [address] Margaret Reyes OT [address] [place] [address] 09/20/2023 9:15 AM EDT Rehab Services [address] [address] Margaret Reyes, OT [address] [place] [address] 09/22/2023 9:15 AM EDT Rehab Services [address] [address] Margaret Reyes, OT [address] [place] [address] 09/23/2023 9:15 AM EDT Rehab Services [address] [address] Margaret Reyes, OT [address] [place] [address] 09/27/2023 9:15 AM EDT Rehab Services [address] [address] Margaret Reyes, OT [address] [place] [address] 09/29/2023 9:15 AM EDT Rehab Services [address] [address] Margaret Reyes, OT [facility] [place] [address] 09/30/2023 9:15 AM EDT Rehab Services [address] [address] Margaret Reyes, OT [address] [place] [address] 10/04/2023 9:15 AM EDT Rehab Services [address] [place] [address] Margaret Reyes, OT [address] [place] [address] 10/05/2023 1:00 PM EDT Rehab Services [facility] [address] [place] [address] Margaret Reyes, OT [address] [place] [address] 10/25/2023 1:00 PM EDT Office Visit [facility] [place], [address] [address] Christiano Shields DO [address] [place] [address] Photographer Ayala [address] [address] 11/14/2023 2:45 PM EDT Imaging Radiology, [address] [address] 01/10/2024 2:00 PM EST Office Visit Optometry, [place] [address] [place] [address] Parminder Joyner OD [address] [place] [address] Health Maintenance Due Date Last Done Comments [...] Advance Directives occurred with: Patient Care Teams Cotton Tier Relationship Specialty Start Date End Date Victoriano Han DO [address] [address] [place] [address] PCP - General Family Medicine 01/18/22 documented as of this encounter
--- OUTSIDE RECORDS SUMMARY | 2023-10-21 01:19 | External Medical Summary | Continuity of Care Document ---
Author Name Unknown Organization [id number] Address [address] [place] [id number] Care Team Providers Care Vortex Operator Name Role Phone GuilleDharmeshVictoriano S Primary Care Physician [phone] [id number]): 08[facility] - 08/31/23 [id number] [address] [place] [address] Encounter Diagnosis S/P orthopedic surgery, follow-up exam(Discharge Diagnosis) - 08/31/23 Discharge Disposition: Home or Self Care Attending Physician: MD Dev, Bert A Referring Physician: ZENIA Cool, Victoriano Allergies, Adverse Reactions, Alerts Substance Criticality Severity Reaction Reaction Severity Status nystatin rash Active Adhesive bandage 1 rash A ctive Latex rash Active 1rash; paper tape ok Medications Adderall XR 30 mg oral capsule, [...] tab, PO, q12h, Disp# 6 tab, [id number] Start Date: 03/24/22 Stop Date: 03/27/22 Status: Ordered clonazePAM 1 mg oral tablet Start: 05/07/20 1:18:00 PM EST, 1 tab, PO, qhs Start Date: 05/07/20 Status: Ordered cromolyn 4% ophthalmic solution Start: 10/14/20 1:30:00 PM EDT, 1 drop, both eyes, qid, Disp# 10 mL, Refills: 0, [id number] Start Date: 10/14/20 Status: Ordered diclofenac [...] as you are able to fill), Pharmacy: [facility] #[id number] Start Date: 06/25/21 Status: Ordered fluticasone [...] 02/26/21 11:38:00 AM EST, 1 cap, PO, q, takes on Tuesday Start Date: 02/26/21 Status: Ordered ZyrTEC Start: 02/04/22 2:45:00 PM EST, 10 mg =, PO, Daily Start Date: 02/04/22 Status: Ordered Mental Status 08/31/23 Barriers to Learning one year None evide nt Mandatory Health Literacy Documentation Yes Health Literacy Communication Barriers N ever Primary Language Yakut Problem List Condition Confirmation Course Effective Dates [...] Diagnosis Diagnosis Type Effective Dates Health Status Clinical Service Informant S/P orthopedic surgery, follow-up exam Discharge Diagnosis 08/31/23 Procedures Procedure Date Related Diagnosis Body Site [...] fracture repair 4L. thumb partial amputation repair 99720, 2007: B. knee arthroscopy 62 7c-section x 2 Social History Social History Type Response Smoking Status Never smoked cigaret luda Sex Female Ortho Outpt Note * MD Dev, Bert A: MODIFY MD Dev, Bert A: MODIFY, MODIFY Event Display: Ortho Outpt Note Authored Date: [id number] Name:YOGI LONG Patient Number:[id number] :1965 Date of Service:08/31/2023 CHIEF COMPLAINT: f/u left ORAF of metacarpal surgery at [facility]; DOS 07/21/2023 HPI: [id number] yearkylie COLEYDFemalewgenet presents today forf/u left ORAF, DOS:07/21/23. She arrives in brace. She says she is able to do a lot of activity with her left hand.Patient states that when she was in an accident prior, her, "thumb was ripped off and reattached", and is now having pain in that area. Continues PT. Today she rates her pain as a 7/10. PHYSICAL EXAM: Focusing on the patient'sLeftupper extremity: 2+ radial pulse Sensation to light touch is intact distally Motor to the median, radial, ulnar, AIN, and PIN, as well as musculocutaneous nerves are intact Limited finger flexion, 3cm to flexion crease Digits are well appearing, slight swelling over incision but within reason Scabbing over distal aspect of incision with no evidence of infection + Tenderness over incision FDS, FDP and extension intact Sensitivity over dorsum and volar aspect RADIOGRAPHY: AP, oblique, lateralviews of theleft handobtained today [facility] interpreted by me showevidence of previousORAF of 4th metacarpal shaft in place. Consolidation of fracture. Most proximal screw looks a little long. IMPRESSION: 58 year old female with left hand pain secondarily to 7 week f/u s/p left ORIF of 4th metacarpal fracture GOAL: decrease pain PLAN: - RICE. - They may use anti-inflammatories alternating with Tylenol as needed for pain. - Discussed continuing PT and various stretches to do at home to increase motion, 3x/day - Continue progressing to activities as tolerated. - Would consider hardware removal after fracture ishealed if having significant pain - Follow-up with X-rays of the left handat 1st post-op visit for upcoming right TKA The patient understood all my instructions and explanations; all their questions were satisfactorily addressed. ATTESTATION: I, Heidi Salazar, scribing [facility] in the presence of, Bert Méndez, on this date,08/31/2023 16:26:52. I, Dr. Méndez, saw and examined the patient with Heidi Salazar acting as my scribe. I reviewed the note and agree with the documented findings and the plan of care I developed. Electronic Signature on File Electronically Reviewed/Signed by: Heidi Salazar Author Signature Dt/Tm:08/31/2023 04:40 PM Electronically Reviewed/Signed by: Bert Méndez MD Cosigner Signature Dt/Tm: 08/31/2023 05:05 PM [facility] Tower Control Operator Department of Orthopaedics and Rehabilitation [facility] [address], [place] [address] MR Patient Care team information Care Team Personnel Name: DO Han Dennis S Position: Referring Member Role: Primary Care Provider Address: Address: [facility] [address] [place] [address] [address] [place] [address] [place] Name: MD Campa Charles S Position: Physician - Pathologist Member Role: Lifetime Relationship Address: Address: [facility] [address] [place] [address] [place] Care Team Related Persons Name: MORELIA ANTONIO Address: home [address] [facility] [place] [phone]
--- OUTSIDE RECORDS SUMMARY | 2023-10-21 01:19 | External Medical Summary | Summary of Care ---
Author Name Unknown Organization [facility] Address [address] [place] [address] Phone [phone] Care Team Providers Care Insurance Clerk Name Role Phone Guille Victoriano Lawson DO Primary Care Provider [phone] Reason for Visit * Reason Comments Limited Range Of Motion Pain Muscle Weakness * Evaluate & Treat - Unlimited Visits (Within 10 days (routine)) - Authorized Specialty Diagnoses / Procedures Referred By Thierry funk Referred To Contact Occupational Therapy Diagnoses Encounter for other specified aftercare Other specified postprocedural states Procedures EVALUATE & TREAT Bert Méndez MD [address] [address] Referral ID Status Reason Start Date Expiration Date Visits Requested Visits Authorized [id number] Authorized Specialty Services Required 08/09/2023 03/06/[phone] Encounter Details Date Type Department Care Team (Latest Contact Info) Description 09/01/2023 3:30 PM EDT Rehab Services Occupational Therapy [address] [place] [address] Margaret Reyes, OT [address] [place] [address] Other specified postprocedural states* Allergies [...] amphetamine-dextro amphet ER (ADDERALL XR) 30 MG [id number]:AD HD (attention deficit hyperactivity disorder), combined type [...] MG/ACT Nasal Solution (Varenicline Tartrate) Administer 1 [place] into nostril in the morning and 1 [place] before bedtime. 4.2 mL 6 07/05/2023 Active [...] Daily Progress Note [facility] Occupational Therapy [address] [place] [address] Patient Name: Yelena Rubio Date of : [...] Upcoming Encounters Date Type Department Care Team ([facility] st Contact Info) Description 09/02/2023 9:15 AM EDT Rehab Services Occupational [address] [address] Margaret Reyes, OT [address] [place] [address] 09/06/2023 9:15 AM EDT Rehab Services [address] [address] Margaret Reyes, OT [address] [place] [address] 09/07/2023 1:00 PM EDT Rehab Services [address] [address] Margaret Reyes OT [address] [place] [address] 09/09/2023 9:15 AM EDT Rehab Services [address] [address] Margaret Reyes, OT [address] [place] [address] 09/14/2023 1:45 PM EDT Rehab Services [address] [address] Margaret Reyes OT [address] [place] [address] 09/20/2023 9:15 AM EDT Rehab Services [address] [address] Margaret Reyes, OT [address] [place] [address] 09/22/2023 9:15 AM EDT Rehab Services [address] [address] Margaret Reyes, OT [address] [place] [address] 09/23/2023 9:15 AM EDT Rehab Services [address] [address] Margaret Reyes, OT [address] [place] [address] 09/27/2023 9:15 AM EDT Rehab Services [address] [address] Margaret Reyes, OT [address] [place] [address] 09/29/2023 9:15 AM EDT Rehab Services [address] [address] Margaret Reyes, OT [facility]0 [place] [address] 09/30/2023 9:15 AM EDT Rehab Services [address] [address] Margaret Reyes, OT [address] [place] [address] 10/04/2023 9:15 AM EDT Rehab Services [address] [place] [address] Margaret Reyes, OT [address] [place] [address] 10/05/2023 1:00 PM EDT Rehab Services [facility] 205 [place] [address] Margaret Reyes, OT [address] [place] [address] 10/25/2023 1:00 PM EDT [facility] [place], [address] [address] Christiano Shields DO 16 [place] [address] Photographer Ayala [address] [address] 11/14/2023 2:45 PM EDT Imaging Radiology, [address] [address] 01/10/2024 2:00 PM EST Office Visit Optometry, [place] 16 [place] [address] Parminder Joyner OD [address] [place] [address] Health Maintenance Due Date Last Done Comments [...] Advance Directives occurred with: Patient Care Teams Insurance Clerk Relationship Specialty Start Date End Date Victoriano Han DO [address] [address] [place] [address] PCP - General Family Medicine 01/18/22 documented as of this encounter
--- NOTE | 2023-10-21 01:47 | Emergency Department Note ---
ED Visit Note Patient signed out to me at change of shift from Dr. Laird. Patient pending evaluation by [facility] for inpatient mental health treatment. Patient here is a 201. Patient accepted to [facility] 201 signed by me. .
[2023-10-21] MEDS: hydrOXYzine HCl 25 MG TAB PO PRN ×2 (04:20→04:22)
[2023-10-21] MEDS: ACETAMINOPHEN 325 MG TAB PO PRN (04:25)
[2023-10-21] MEDS: NICOTINE 21 MG/24 HR TDSY TD SCH (07:47)
[2023-10-21] MEDS ORDERED: ALBUTEROL HFA 8 GM INHALER INH PRN (08:00)
[2023-10-21] MEDS ORDERED: tiZANidine HCL 4 MG TABLET PO PRN ×2 (08:00→10:50)
[2023-10-21] MEDS ORDERED: LORATADINE 10 MG TAB PO PRN (10:02)
[2023-10-21] MEDS: clonazePAM 1 MG TAB PO SCH (11:26)
[2023-10-21] MEDS: ERGOCALCIFEROL 1250 MCG (50,000 UNITS) CAP PO SCH (11:27)
[2023-10-21] MEDS: hydroCHLOROthiazide 25 MG TAB PO SCH ×2 (11:27→11:35)
[2023-10-21] MEDS: LOSARTAN POTASSIUM 50 MG TAB PO SCH (11:28)
[2023-10-21] MEDS: ARTIFICIAL TEARS OP SCH ×2 (11:35→14:37)
[2023-10-21] MEDS: clonazePAM 0.5 MG TAB PO SCH ×2 (11:35→21:20)
[2023-10-21] MEDS: HYDROXYUREA 500 MG CAP PO SCH ×2 (11:35→13:15)
[2023-10-21] MEDS: FLUTICASONE/VILANTEROL 200/25MCG 14 PUFFS/INHALER INH SCH (11:35)
[2023-10-21] MEDS: MONTELUKAST SODIUM 10 MG TABLET PO SCH (11:36)
[2023-10-21] MEDS: SUMAtriptan succinate 25 MG TAB PO PRN (12:05)
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
[2023-10-21] MEDS: NICOTINE POLACRILEX 2 MG GUM MT PRN (19:10)
[2023-10-21] MEDS: ONDANSETRON 4 MG OD TAB PO PRN (20:23)
[2023-10-21] MEDS: LORATADINE 10 MG TAB PO SCH (21:18)
[2023-10-21] MEDS: OLANZapine 10 MG TAB PO SCH (21:18)
[2023-10-21] MEDS: traZODone HCL 50 MG TAB PO SCH (21:18)
[2023-10-22 07:54] LABS: Chol HDL Ratio 3.7 (0-5)
[2023-10-22 07:58] LABS: Estimated Average Glucose 111 mg/dl; Hemoglobin A1C 5.5 % (4.5-5.6)
[2023-10-22] MEDS: FLUTICASONE/VILANTEROL 200/25MCG 14 PUFFS/INHALER INH SCH (08:09)
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
[2023-10-22] MEDS: OMEGA-3 (PURIFIED FISH OIL) 1 GM CAP PO SCH (14:15)
--- NOTE | 2023-10-22 14:57 | Electrocardiogram Report ---
Test Reason : Blood Pressure : */* mmHG Vent. Rate : 61 BPM Atrial Rate : 61 BPM P-R Int : 152 ms QRS Dur : 82 ms QT Int : 420 ms P-R-T Axes : 56 70 71 degrees QTcB Int : 422 ms Normal sinus rhythm Normal ECG When compared with ECG of 13-Apr-2022 17:07, No significant change Confirmed by River Quevedo ([id number]) on 10/22/2023 2:57:14 PM Referred By: REFERRED SELF Confirmed By: River Quevedo
[2023-10-22] MEDS: OLANZAPINE 2.5 MG TAB PO PRN (18:19)
[2023-10-22] MEDS: traMADol HCL 50 MG TABLET PO PRN (20:53)
[2023-10-22] MEDS: AMITRIPTYLINE HCL 25 MG TAB PO SCH (22:28)
[2023-10-22] MEDS: clonazePAM 1 MG TAB PO SCH (22:29)
[2023-10-23] MEDS: MAGNESIUM HYDROXIDE SUSP 30 ML UDC PO PRN (06:57)
[2023-10-23] MEDS: clonazePAM 0.5 MG TAB PO SCH (08:28)
[2023-10-23] MEDS ORDERED: POLYETHYLENE (MIRALAX) 17 GM PACK PO PRN (12:01)
[2023-10-23] MEDS: POLYETHYLENE (MIRALAX) 17 GM PACK PO ONE (12:44)
[2023-10-23] MEDS: DICLOFENAC SOD 1% GEL 100 GM TUBE EXT SCH (13:03)
[2023-10-23] MEDS: DOCUSATE SODIUM 100 MG CAP PO SCH (13:03)
[2023-10-23] MEDS: FLUTICASONE PROPIONATE NA SPR 16 GM BTL SCH (13:04)
[2023-10-23] MEDS: traMADol HCL 50 MG TABLET PO PRN (15:01)
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
[2023-10-23] MEDS: LITHIUM CARBONATE 450 MG TABCR PO SCH (22:35)
[2023-10-23] MEDS: ALBUTEROL HFA 8 GM INHALER INH PRN (22:41)
[2023-10-24 05:30] VITALS: O2SAT 97
--- NOTE | 2023-10-24 12:04 | Psychiatric Progress Note ---
Date of Service October 24, 2023 Impression / Recommendations Impression YOGI RUBIO is a 58-year-old woman who currently lives in [place] alone, has a history of BPAD, ADHD, anxiety and depression and was admitted on 10/20/23 21:08 on a 201 voluntary commitment for mood changes and concern for episode of julio. Diagnostically consistent with unspecified mood disorder with differential including BPAD current mixed episode vs MDD with irritability and anxious distress vs PTSD. She did complete a mood disorder questionnaire which was positive for likely history of julio and BPAD. Patient presents slight improvement in mood lability however has been requesting multiple Zyprexa PRNs for anxiety. Pain symptoms slightly improved. Patient continues to be constipated with difficulty evacuating bowels. We will give one-time dose of senna and follow-up with the patient. Patient encouraged to stay hydrated. Reviewed history of lithium use with patient and she reports being on 600 mg daily total dose many years ago. Given patient is on losartan and hydrochlorothiazide and impacts lithium metabolism we will continue lithium 450 mg nightly dose and draw levels to assure she is within therapeutic range. Patient encouraged to utilize Vistaril as needed prior to Zyprexa as needed for anxiety. Attempted to gather collateral from family today however unsuccessful and we will try again tomorrow. MNPR given mood lability and recent agitation prior to admission Overall, I spent a total of 45 minutes with this case including review of chart records, nursing report, review of lab work, direct evaluation of the patient at bedside, counseling the patient, multidisciplinary team meeting, orders, and documentation in the electronic health record. (1) Unspecified mood [affective] disorder: (2) Generalized anxiety disorder with panic attacks: (3) Migraines: (4) Dry eyes, bilateral: (5) Osteoarthritis: (6) Constipation: (7) Hand pain, left: Plan 10/24/2023: Sennosides 8.8 mg 1 time. Continue medications and treatment plan. 10/23/2023: Start lithium 450 mg at bedtime. Colace 100 mg twice daily and MiraLAX 17 g daily as needed started. Flonase 2 sprays in each nostril daily started. Voltaren gel twice daily topically to bilateral knees started. Tramadol 50 mg twice daily as needed schedule. 10/22/2023: Clonazepam 0.5 mg daily and 1 mg at bedtime. Discontinue trazodone. Start amitriptyline 25 mg at bedtime. Start fish oil supplements 1 g twice daily. Administered Clark borderline personality screener. Baseline EKG. 10/21/2023: The patient was admitted to the [facility] ([facility]) on q15 min checks (behavioral with suicide precautions) for safety. The patient will participate in group, recreational, and milieu therapies and will be offered additional individual and family sessions as clinically appropriate. 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 and Adderal ER and IR due to concern for mixed episode of BPAD -Start olanzapine 10mg HS and 2.5mg BID prn for agitation/julio -Fasting lipid panel and glucose in AM -Continue STOCKROOM CLERK Klonopin -Consider use of [place] once sleep improves as alternative mood stabilizer with lower risk of weight gain, will need to ensure no interactions with hydroxyurea prior to initiation Inventory Assets Strengths: supportive relationships, willing to get treatment Needs: safety and stabilization, medication adjustment, additional coping skills, increased outpatient services Suicide Risk Level Suicide Risk Level: Moderate (q15 min suicide checks) (mood lability with helplessness, but feels safe in the hospital and able to ask for support) Risk Factors Assessment Male: No : Yes Do You Have Access To A Gun?: No Health Problems: Yes Mental Health Diagnoses: Yes Substance Use Disorders: No Previous Attempt: No Family History of Suicide: No Previous Psychiatric Hospitalization: Yes Protective Factors Assessment Responsible for Young Children: Yes (helped watch her grandchild until July ) Employed: No (disabled) Stable Relationships: Yes Interval History Identifying Information YOGI RUBIO is a 58-year-old woman who currently lives in [place] alone, has a history of BPAD, ADHD, anxiety and depression and was admitted on 10/20/23 21:08 on a 201 voluntary commitment for mood changes and concern for episode of julio. Diagnostically consistent with unspecified mood disorder with differential including BPAD current mixed episode vs MDD with irritability and anxious distress vs PTSD. She did complete a mood disorder questionnaire which was positive for likely history of julio and BPAD. Chief Complaint "Anxious". Review of Systems Sleep Information Total Hours of Sleep: 5.30 Sleep Comments: HS Medications Meal Information Percent Meal Consumed - Breakfast: 100 Percent Meal Consumed - Lunch: 100 Percent Meal Consumed - Dinner: 100 Subjective Subjective Patient was seen & assessed and interval progress reviewed with treatment team nursing and social work Overnight required 2x Zyprexa as needed. Did not have a full bowel movement. Slept 5 hours. Patient reports not sleeping well this pain woke her up. Reports straining feces and unable to have a complete bowel movement. Consistency feces was solid. Reports improved knee pain with diclofenac gel. Reports having tingling sensation in her hand that was injured. When discussing past gabapentin use says she did not like the feeling of it. Spoke to her son and reports the meeting went well. Says in the past she has had difficulty with her son because she was "too anxious and too hyper". Reports taking Zyprexa as needed because of anxiety with shortness of breath and increased heart rate. Says she gets overworked about the things she has to do for the future. Denies any change in urinary frequency or urgency. Reports to crying spells yesterday and one today and this is an improvement. Patient gives permission to talk to her son Carter Rubio ([phone]): Called 2x went to voicemail. Physical Exam Mental Examination Appearance: Unkempt Eye Contact: Maintains Eye Contact Motor Behavior: Restless Speech: Normal and Circumstantial Mood: Euthymic, Anxious and Sad Affect: Appropriate Thought Process: Intact and Circumstantial Thought Content: Intact Hallucinations: None Insight: Poor Judgement: Poor Vital Signs (Past 24 Hours) Last Vital Signs Temp 36.1 C L 10/24/23 05:28 Pulse 71 10/24/23 05:28 Resp 16 10/24/23 05:28 BP 137/76 10/24/23 05:28 Pulse Ox 97 10/24/23 05:28 O2 Del Method Room Air 10/24/23 05:28 Results & Data ([facility]) Current Inpatient Medications Current Inpatient Medications: Current Inpatient Medications Acetaminophen (Acetaminophen 325 Mg Tab) 650 mg PO Q4H PRN PRN Reason: Headache or Minor Fever Stop: 11/19/23 21:55 Last Admin: 10/24/23 10:30 Dose: 650 mg Al Hydrox/Mg Hydrox/Simethicone (Aluminum/Magnesium Susp 30 Ml Udc) 30 ml PO Q4H PRN PRN Reason: GI Upset Stop: 11/19/23 21:55 Albuterol (Albuterol Hfa 8 Gm Inhaler) 1 puffs INH Q6H PRN PRN Reason: ALLERGIES Stop: 11/20/23 10:51 Last Admin: 10/23/23 22:41 Dose: 1 puffs Amitriptyline HCl (Amitriptyline Hcl 25 Mg Tab) 25 mg PO HS [facility] Stop: 11/21/23 21:59 Last Admin: 10/23/23 22:34 Dose: 25 mg Artificial Tears (Artificial Tears) 1 drops OP BID [facility] Stop: 11/20/23 20:59 Last Admin: 10/24/23 07:45 Dose: 1 drops Bismuth Subsalicylate (Bismuth Subsalicylate Liqd 236 Ml) 15 ml PO PRN PRN PRN Reason: Loose Stool Stop: 11/19/23 21:55 Clonazepam (Clonazepam 1 Mg Tab) 1 mg PO HS [facility] Stop: 11/21/23 21:59 Last Admin: 10/23/23 22:37 Dose: 1 mg Clonazepam (Clonazepam 0.5 Mg Tab) 0.5 mg PO QAM [facility] Stop: 11/22/23 08:59 Last Admin: 10/24/23 07:50 Dose: 0.5 mg Diclofenac Sodium (Diclofenac Sod 1% Gel 100 Gm Tube) 2 gm EXT BID [facility]; Protocol Stop: 11/22/23 12:29 Last Admin: 10/24/23 07:46 Dose: 2 gm Docusate Sodium (Docusate Sodium 100 Mg Cap) 100 mg PO BID [facility] Stop: 11/22/23 12:29 Last Admin: 10/24/23 07:47 Dose: 100 mg Ergocalciferol (Ergocalciferol 1250 Mcg (50,000 Units) Cap) 1,250 mcg PO DAILY [facility] Stop: 11/20/23 10:14 Last Admin: 10/24/23 07:47 Dose: 1,250 mcg Fish Oil ([place]-3 (Purified Fish Oil) 1 Gm Cap) 1 gm PO BID [facility] Stop: 11/21/23 12:29 Last Admin: 10/24/23 07:47 Dose: 1 gm Fluticasone Propionate (Fluticasone Propionate Na Spr 16 Gm Btl) 1 sprays NA DAILY [facility] Stop: 11/24/23 08:59 Fluticasone/Vilanterol (Fluticasone/Vilanterol 200/25mcg 14 Puffs/Inhaler) 1 puffs INH DAILY [facility] Stop: 11/21/23 08:59 Last Admin: 10/24/23 07:48 Dose: 1 puffs Hydrochlorothiazide (Hydrochlorothiazide 25 Mg Tab) 25 mg PO DAILY [facility] Stop: 11/20/23 10:59 Last Admin: 10/24/23 07:48 Dose: 25 mg Hydroxyurea (Hydroxyurea 500 Mg Cap) 500 mg PO BID@1300,2200 [facility] Stop: 11/20/23 12:59 Last Admin: 10/23/23 22:34 Dose: 500 mg Hydroxyzine HCl (Hydroxyzine Hcl 25 Mg Tab) 50 mg PO HSZ PRN PRN Reason: Insomnia Stop: 11/19/23 21:55 Hydroxyzine HCl (Hydroxyzine Hcl 25 Mg Tab) 25 mg PO Q4H PRN PRN Reason: Anxiety Stop: 11/19/23 21:55 Last Admin: 10/23/23 11:21 Dose: 25 mg [place]wood Carbonate ([place] Carbonate 450 Mg Tabcr) 450 mg PO HS [facility] Stop: 11/22/23 21:59 Last Admin: 10/23/23 22:35 Dose: 450 mg Loratadine (Loratadine 10 Mg Tab) 10 mg PO HS [facility] Stop: 11/20/23 21:59 Last Admin: 10/23/23 22:35 Dose: 10 mg Losartan Potassium (Losartan Potassium 50 Mg Tab) 50 mg PO DAILY [facility] Stop: 11/20/23 10:14 Last Admin: 10/24/23 07:47 Dose: 50 mg Magnesium Hydroxide (Magnesium Hydroxide Susp 30 Ml Udc) 30 ml PO DAILY PRN PRN Reason: Constipation Stop: 11/19/23 21:55 Last Admin: 10/24/23 05:27 Dose: 30 ml Miscellaneous (Remove Nicoderm Patch) 1 each N/A DAILY@0859 [facility] Stop: 11/20/23 08:58 Last Admin: 10/24/23 07:45 Dose: 1 each Miscellaneous (Olopatadine 0.2 % Drops- Order Awaiting Action) 1 each N/A QS [facility] Stop: 11/20/23 15:59 Last Admin: 10/24/23 08:33 Dose: Not Given Miscellaneous (Perfluorohexyloctane (Pf) [Miebo (Pf)] Eye Drops Order Awaiting Action) 1 each N/A QS [facility] Stop: 11/20/23 15:59 Last Admin: 10/24/23 08:33 Dose: Not Given Nicotine (Nicotine 21 Mg/24 Hr Tdsy) 1 patch TD QAM [facility] Stop: 11/20/23 08:59 Last Admin: 10/24/23 07:48 Dose: 1 patch Nicotine Polacrilex (Nicotine Polacrilex 2 Mg Gum) 1 piece MT PRN PRN PRN Reason: tobacco cessation Stop: 11/20/23 19:04 Last Admin: 10/24/23 07:26 Dose: 1 piece Olanzapine (Olanzapine 10 Mg Tab) 10 mg PO HS [facility] Stop: 11/20/23 21:59 Last Admin: 10/23/23 22:35 Dose: 10 mg Olanzapine (Olanzapine 2.5 Mg Tab) 2.5 mg PO BID PRN PRN Reason: Agitation/julio Stop: 11/20/23 20:59 Last Admin: 10/24/23 10:29 Dose: 2.5 mg Ondansetron HCl (Ondansetron 4 Mg Od Tab) 4 mg PO Q6H PRN PRN Reason: Nausea Stop: 11/20/23 10:01 Last Admin: 10/22/23 20:26 Dose: 4 mg Polyethylene Glycol (Polyethylene (Miralax) 17 Gm Pack) 17 gm PO DAILY PRN PRN Reason: Constipation Stop: 11/22/23 12:00 Sodium Chloride (Sodium Chloride 0.65% Na Soln 45 Ml ([place])) 1 - 2 sprays NA PRN PRN PRN Reason: Nasal Dryness/Congestion Stop: 11/19/23 21:55 Sumatriptan Succinate (Sumatriptan Succinate 25 Mg Tab) 25 mg PO DAILY PRN PRN Reason: Migraine Headache Stop: 11/20/23 11:32 Last Admin: 10/23/23 11:32 Dose: 25 mg Tizanidine HCl (Tizanidine Hcl 4 Mg Tablet) 4 mg PO Q8H PRN PRN Reason: MUSCLE SPASMS Stop: 11/20/23 10:49 Tramadol HCl (Tramadol Hcl 50 Mg Tablet) 50 mg PO BID PRN PRN Reason: Pain Stop: 11/21/23 20:36 Last Admin: 10/23/23 21:03 Dose: 50 mg Mental Health & Subst Abuse Tx Therapist Name of Therapist: [place] Air Vice Marshal Name of Cracker And Cookie Machine Operator: Dimitri SULLIVAN Post Discharge Appointments Primary Care Physician Name Of Family Doctor/PCP: Henry Wheatley
[2023-10-24] MEDS: SENNOSIDES 8.8 MG/5 ML UDC PO ONE (12:15)
[2023-10-24] MEDS: MAGNESIUM CITRATE 296 ML/BTL PO STA (15:35)
[2023-10-24] MEDS: HYDROCORTISONE HC 2.5% CRM 30GM TUBE EXT SCH (21:07)
[2023-10-24] MEDS: SIMETHICONE 80 MG CHEW PO PRN (21:21)
[2023-10-25] MEDS: FLUTICASONE PROPIONATE NA SPR 16 GM BTL SCH (08:26)
--- NOTE | 2023-10-25 11:43 | Psychiatric Progress Note ---
Date of Service October 25, 2023 Impression / Recommendations Impression YOGI LONG is a 58-year-old woman who currently lives in [place] alone, has a history of BPAD, ADHD, anxiety and depression and was admitted on 10/20/23 21:08 on a 201 voluntary commitment for mood changes and concern for episode of julio. Diagnostically consistent with unspecified mood disorder with differential including BPAD current mixed episode vs MDD with irritability and anxious distress vs PTSD. She did complete a mood disorder questionnaire which was positive for likely history of julio and BPAD. Patient presents an improvement in mood lability, outbursts and presents subjective feelings of improved anxiety. Continues to have constipation and working to adjust medication regimen. Tolerating lithium well with no suspicion of toxicity; we will check levels in 2 days. MNPR given mood lability and recent agitation Overall, I spent a total of 40 minutes with this case including review of chart records, nursing report, review of lab work, direct evaluation of the patient at bedside, counseling the patient, multidisciplinary team meeting, orders, and documentation in the electronic health record. (1) Unspecified mood [affective] disorder: (2) Generalized anxiety disorder with panic attacks: (3) Migraines: (4) Dry eyes, bilateral: (5) Osteoarthritis: (6) Constipation: (7) Hand pain, left: Plan 10/25/2023: Scheduled MiraLAX daily. Start psyllium Husk daily. Hemorrhoid cream (hydrocortisone) scheduled 3 times daily. 10/24/2023: Sennosides 8.8 mg 1 time. Continue medications and treatment plan. 10/23/2023: Start lithium 450 mg at bedtime. Colace 100 mg twice daily and MiraLAX 17 g daily as needed started. Flonase 2 sprays in each nostril daily started. Voltaren gel twice daily topically to bilateral knees started. Tramadol 50 mg twice daily as needed schedule. 10/22/2023: Clonazepam 0.5 mg daily and 1 mg at bedtime. Discontinue trazodone. Start amitriptyline 25 mg at bedtime. Start fish oil supplements 1 g twice daily. Administered Clark borderline personality screener. Baseline EKG. 10/21/2023: The patient was admitted to the [facility] ([facility]) on q15 min checks (behavioral with suicide precautions) for safety. The patient will participate in group, recreational, and milieu therapies and will be offered additional individual and family sessions as clinically appro priate. 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 qd and Adderal ER and IR due to concern for mixed episode of BPAD -Start olanzapine 10mg HS and 2.5mg BID prn for agitation/julio -Fasting lipid panel and glucose in AM -Continue YIELD IMPROVEMENT ENGINEER Klonopin -Consider use of [place] once sleep improves as alternative mood stabilizer with lower risk of weight gain, will need to ensure no interactions with hydroxyurea prior to initiation Inventory Assets Strengths: supportive relationships, willing to get treatment Needs: safety and stabilization, medication adjustment, additional coping skills, increased outpatient services Suicide Risk Level Suicide Risk Level: Moderate (q15 min suicide checks) (mood lability with helplessness, but feels safe in the hospital and able to ask for support) Risk Factors Assessment Male: No : Yes Do You Have Access To A Gun?: No Health Problems: Yes Mental Health Diagnoses: Yes Substance Use Disorders: No Previous Attempt: No Family History of Suicide: No Previous Psychiatric Hospitalization: Yes Protective Factors Assessment Responsible for Young Children: Yes (helped watch her grandchild until July ) Employed: No (disabled) Stable Relationships: Yes Interval History Identifying Information YOGI LONG is a 58-year-old woman who currently lives in [place] alone, has a history of BPAD, ADHD, anxiety and depression and was admitted on 10/20/23 21:08 on a 201 voluntary commitment for mood changes and concern for episode of julio. Diagnostically consistent with unspecified mood disorder with differential including BPAD current mixed episode vs MDD with irritability and anxious distress vs PTSD. She did complete a mood disorder questionnaire which was positive for likely history of julio and BPAD. Chief Complaint "A lot better" Review of Systems Sleep Information Total Hours of Sleep: 4.30 Sleep Comments: PRN Vistaril given Meal Information Percent Meal Consumed - Breakfast: 100 Percent Meal Consumed - Lunch: 100 Percent Meal Consumed - Dinner: 75 Subjective Subjective Patient was seen & assessed and interval progress reviewed with treatment team nursing and social work Patient received as needed Vistaril and Zyprexa overnight. Patient slept 4.5 hours overnight. On interview patient reports feeling more rested. Says she took a nap yesterday and is why she did not sleep as much at night. Says she has difficulty staying asleep at night secondary to pain in her hand and stomach pain. Reports having a partial bowel movement after getting magnesium citrate and it was very solid and consistency. Rates mood a 7 out of 10 and improved. Was apologetic about being upset with the nurse last night about the nicotine gum. Says she has been doing her laundry and has been taking care of herself better. Reports that she is able to better handle frustrating situations and is "not acting out as before". Feels "less nervous". Reports 2-3 crying spells yesterday and did not last as long as before. Rates migraine pain at 5 out of 10 and slightly improved. Reports having constipation problems at home as well and does not eat as much as she does in the hospital. Was given recommendations on diet to improve constipation. Complains of hemorrhoid pain. Physical Exam Mental Examination Appearance: Unkempt Eye Contact: Maintains Eye Contact Motor Behavior: Unremarkable Speech: Normal and Circumstantial Mood: Euthymic, Calm and Irritable Affect: Congruent Thought Process: Intact and Circumstantial Thought Content: Intact Hallucinations: None Insight: Poor (improving) Judgement: Poor (improving) Vital Signs (Past 24 Hours) Last Vital Signs Temp 36.7 C 10/25/23 05:04 Pulse 89 10/25/23 05:04 Resp 18 10/25/23 05:04 BP 150/87 H 10/25/23 05:04 Pulse Ox 97 10/25/23 05:04 O2 Del Method Room Air 10/25/23 05:04 Results & Data ([facility]) Current Inpatient Medications Current Inpatient Medications: Current Inpatient Medications Acetaminophen (Acetaminophen 325 Mg Tab) 650 mg PO Q4H PRN PRN Reason: Headache or Minor Fever Stop: 11/19/23 21:55 Last Admin: 10/24/23 10:30 Dose: 650 mg Al Hydrox/Mg Hydrox/Simethicone (Aluminum/Magnesium Susp 30 Ml Udc) 30 ml PO Q4H PRN PRN Reason: GI Upset Stop: 11/19/23 21:55 Albuterol (Albuterol Hfa 8 Gm Inhaler) 1 puffs INH Q6H PRN PRN Reason: ALLERGIES Stop: 11/20/23 10:51 Last Admin: 10/23/23 22:41 Dose: 1 puffs Amitriptyline HCl (Amitriptyline Hcl 25 Mg Tab) 25 mg PO HS [facility] Stop: 11/21/23 21:59 Last Admin: 10/24/23 21:07 Dose: 25 mg Artificial Tears (Artificial Tears) 1 drops OP BID [facility] Stop: 11/20/23 20:59 Last Admin: 10/25/23 08:25 Dose: 1 drops Bismuth Subsalicylate (Bismuth Subsalicylate Liqd 236 Ml) 15 ml PO PRN PRN PRN Reason: Loose Stool Stop: 11/19/23 21:55 Clonazepam (Clonazepam 1 Mg Tab) 1 mg PO HS [facility] Stop: 11/21/23 21:59 Last Admin: 10/24/23 21:05 Dose: 1 mg Clonazepam (Clonazepam 0.5 Mg Tab) 0.5 mg PO QAM [facility] Stop: 11/22/23 08:59 Last Admin: 10/25/23 08:25 Dose: 0.5 mg Diclofenac Sodium (Diclofenac Sod 1% Gel 100 Gm Tube) 2 gm EXT BID [facility]; Protocol Stop: 11/22/23 12:29 Last Admin: 10/25/23 08:24 Dose: 2 gm Docusate Sodium (Docusate Sodium 100 Mg Cap) 100 mg PO BID [facility] Stop: 11/22/23 12:29 Last Admin: 10/25/23 08:24 Dose: 100 mg Ergocalciferol (Ergocalciferol 1250 Mcg (50,000 Units) Cap) 1,250 mcg PO DAILY [facility] Stop: 11/20/23 10:14 Last Admin: 10/25/23 08:24 Dose: 1,250 mcg Fish Oil ([place]-3 (Purified Fish Oil) 1 Gm Cap) 1 gm PO BID [facility] Stop: 11/21/23 12:29 Last Admin: 10/25/23 08:24 Dose: 1 gm Fluticasone Propionate (Fluticasone Propionate Na Spr 16 Gm Btl) 1 sprays NA DAILY [facility] Stop: 11/24/23 08:59 Last Admin: 10/25/23 08:26 Dose: 1 sprays Fluticasone/Vilanterol (Fluticasone/Vilanterol 200/25mcg 14 Puffs/Inhaler) 1 puffs INH DAILY [facility] Stop: 11/21/23 08:59 Last Admin: 10/25/23 08:25 Dose: 1 puffs Hydrochlorothiazide (Hydrochlorothiazide 25 Mg Tab) 25 mg PO DAILY [facility] Stop: 11/20/23 10:59 Last Admin: 10/25/23 08:25 Dose: 25 mg Hydrocortisone (Hydrocortisone Hc 2.5% Crm 30gm Tube) 1 appln EXT TID [facility] Stop: 11/24/23 13:59 Hydroxyurea (Hydroxyurea 500 Mg Cap) 500 mg PO BID@1300,2200 [facility] Stop: 11/20/23 12:59 Last Admin: 10/24/23 21:06 Dose: 500 mg Hydroxyzine HCl (Hydroxyzine Hcl 25 Mg Tab) 50 mg PO HSZ PRN PRN Reason: Insomnia Stop: 11/19/23 21:55 Last Admin: 10/24/23 23:35 Dose: 50 mg Hydroxyzine HCl (Hydroxyzine Hcl 25 Mg Tab) 25 mg PO Q4H PRN PRN Reason: Anxiety Stop: 11/19/23 21:55 Last Admin: 10/23/23 11:21 Dose: 25 mg Bayside Carbonate ([place] Carbonate 450 Mg Tabcr) 450 mg PO HS [facility] Stop: 11/22/23 21:59 Last Admin: 10/24/23 21:06 Dose: 450 mg Loratadine (Loratadine 10 Mg Tab) 10 mg PO HS [facility] Stop: 11/20/23 21:59 Last Admin: 10/24/23 21:06 Dose: 10 mg Losartan Potassium (Losartan Potassium 50 Mg Tab) 50 mg PO DAILY [facility] Stop: 11/20/23 10:14 Last Admin: 10/25/23 08:24 Dose: 50 mg Magnesium Hydroxide (Magnesium Hydroxide Susp 30 Ml Udc) 30 ml PO DAILY PRN PRN Reason: Constipation Stop: 11/19/23 21:55 Last Admin: 10/24/23 05:27 Dose: 30 ml Miscellaneous (Remove Nicoderm Patch) 1 each N/A DAILY@0859 [facility] Stop: 11/20/23 08:58 Last Admin: 10/25/23 07:44 Dose: 1 each Miscellaneous (Olopatadine 0.2 % Drops- Order Awaiting Action) 1 each N/A QS [facility] Stop: 11/20/23 15:59 Last Admin: 10/25/23 07:33 Dose: Not Given Miscellaneous (Perfluorohexyloctane (Pf) [Miebo (Pf)] Eye Drops Order Awaiting Action) 1 each N/A QS [facility] Stop: 11/20/23 15:59 Last Admin: 10/25/23 07:33 Dose: Not Given Nicotine (Nicotine 21 Mg/24 Hr Tdsy) 1 patch TD QAM [facility] Stop: 11/20/23 08:59 Last Admin: 10/25/23 07:44 Dose: 1 patch Nicotine Polacrilex (Nicotine Polacrilex 2 Mg Gum) 1 piece MT PRN PRN PRN Reason: tobacco cessation Stop: 11/20/23 19:04 Last Admin: 10/25/23 09:29 Dose: 1 piece Olanzapine (Olanzapine 10 Mg Tab) 10 mg PO HS [facility] Stop: 11/20/23 21:59 Last Admin: 10/24/23 21:07 Dose: 10 mg Olanzapine (Olanzapine 2.5 Mg Tab) 2.5 mg PO BID PRN PRN Reason: Agitation/julio Stop: 11/20/23 20:59 Last Admin: 10/24/23 17:04 Dose: 2.5 mg Ondansetron HCl (Ondansetron 4 Mg Od Tab) 4 mg PO Q6H PRN PRN Reason: Nausea Stop: 11/20/23 10:01 Last Admin: 10/25/23 07:42 Dose: 4 mg Polyethylene Glycol (Polyethylene (Miralax) 17 Gm Pack) 17 gm PO DAILY [facility] Stop: 11/24/23 10:59 Psyllium Hydrophilic Mucilloid (Psyllium Or Guar Gum Fiber 4gm Packet) 4 gm PO QAM [facility] Stop: 11/24/23 10:59 Simethicone (Simethicone 80 Mg Chew) 80 mg PO QID PRN PRN Reason: Flatulence Stop: 11/23/23 20:49 Last Admin: 10/24/23 21:21 Dose: 80 mg Sodium Chloride (Sodium Chloride 0.65% Na Soln 45 Ml ([place])) 1 - 2 sprays NA PRN PRN PRN Reason: Nasal Dryness/Congestion Stop: 11/19/23 21:55 Sumatriptan Succinate (Sumatriptan Succinate 25 Mg Tab) 25 mg PO DAILY PRN PRN Reason: Migraine Headache Stop: 11/20/23 11:32 Last Admin: 10/23/23 11:32 Dose: 25 mg Tizanidine HCl (Tizanidine Hcl 4 Mg Tablet) 4 mg PO Q8H PRN PRN Reason: MUSCLE SPASMS Stop: 11/20/23 10:49 Tramadol HCl (Tramadol Hcl 50 Mg Tablet) 50 mg PO BID PRN PRN Reason: Pain Stop: 11/21/23 20:36 Last Admin: 10/25/23 05:01 Dose: 50 mg Mental Health & Subst Abuse Tx Therapist Name of Therapist: Camron Gustafson Therapist's Date of Therapist Appointment: 11/04/23 Time of Therapist Appointment: 11:00 [employer] Agent Name of [employer] Agent: Dimitri SULLIVAN Post Discharge Appointments Primary Care Physician Name Of Family Doctor/PCP: Henry Wheatley Primary Care Date of Future Appointment with PCP: 11/03/23 - Time of Appointment with PCP: 12:30 PM
[2023-10-25] MEDS: POLYETHYLENE (MIRALAX) 17 GM PACK PO SCH (12:12)
[2023-10-25] MEDS: PSYLLIUM or GUAR GUM FIBER 4GM PACKET PO SCH (12:14)
[2023-10-25] MEDS: HYDROCORTISONE HC 2.5% CRM 30GM TUBE EXT SCH (13:09)
[2023-10-25] MEDS: traMADol HCL 50 MG TABLET PO PRN (20:22)
[2023-10-26 06:18] VITALS: RESP 16
[2023-10-26 11:02] LABS: 7-Aminoclonaz, Confirm 1470 ng/mL (<25); Amphetamine Urine, Confirm 1325 ng/mL (<250); Hydro-Alp Ur, GC/MS NEGATIVE ng/mL (<25); Hydroxyethylflurazepam, Conf NEGATIVE ng/mL (<50); Hydroxymidazolam Ur, GC/MS NEGATIVE ng/mL (<50); Hydroxytriazolam NEGATIVE ng/mL (<50); Lorazepam, Ur GC/MS NEGATIVE ng/mL (<50); MDA negative; MDEA negative; MDMA (Ecstasy) Urine, Confirm negative; Marijuana Quant, GCMS Urine 609 ng/mL (<5); Methamphetamine, Ur Confirm NEGATIVE ng/mL (<250); Nordiazepam, Confirm NEGATIVE ng/mL (<50); Oxazepam Ur, GC/MS NEGATIVE ng/mL (<50); Temazepam, Confirm NEGATIVE ng/mL (<50)
--- NOTE | 2023-10-26 14:10 | Psychiatric Progress Note ---
Date of Service October 26, 2023 Impression / Recommendations Impression YOGI LONG is a 58-year-old woman who currently lives in [place] alone, has a history of BPAD, ADHD, anxiety and depression and was admitted on 10/20/23 21:08 on a 201 voluntary commitment for mood changes and concern for episode of julio. Diagnostically consistent with unspecified mood disorder with differential including BPAD current mixed episode vs MDD with irritability and anxious distress vs PTSD. She did complete a mood disorder questionnaire which was positive for likely history of julio and BPAD. Patient presents an improvement in mood lability. Continues to have left hand pain and recommended to follow up with orthopedic surgery outpatient. Constipation is improving. MNPR given mood lability and recent agitation Overall, I spent a total of 40 minutes with this case including review of chart records, nursing report, review of lab work, direct evaluation of the patient at bedside, counseling the patient, multidisciplinary team meeting, orders, and documentation in the electronic health record. (1) Mixed bipolar affective disorder: (2) Borderline personality disorder: (3) Generalized anxiety disorder with panic attacks: (4) Migraines: (5) Dry eyes, bilateral: (6) Osteoarthritis: (7) Constipation: (8) Hand pain, left: Plan 10/26/2023: Terrell trough level planned for tomorrow prior to nightly dose. Continue medications and treatment plan. 10/25/2023: Scheduled MiraLAX daily. Start psyllium Husk daily. Hemorrhoid cream (hydrocortisone) scheduled 3 times daily. 10/24/2023: Sennosides 8.8 mg 1 time. Continue medications and treatment plan. 10/23/2023: Start lithium 450 mg at bedtime. Colace 100 mg twice daily and MiraLAX 17 g daily as needed started. Flonase 2 sprays in each nostril daily started. Voltaren gel twice daily topically to bilateral knees started. Tramadol 50 mg twice daily as needed schedule. 10/22/2023: Clonazepam 0.5 mg daily and 1 mg at bedtime. Discontinue trazodone. Start amitriptyline 25 mg at bedtime. Start fish oil supplements 1 g twice daily. Administered Amber borderline personality screener. Baseline EKG. 10/21/2023: The patient was admitted to the [facility] ([facility]) on q15 min checks (behavioral with suicide precautions) for safety. The patient will participate in group, recreational, and milieu therapies and will be offered additional individual and family sessions as clinically appropriate. 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 -Consider use of Terrell once sleep improves as alternative mood stabilizer with lower risk of weight gain, will need to ensure no interactions with hydroxyurea prior to initiation Inventory Assets Strengths: supportive relationships, willing to get treatment Needs: safety and stabilization, medication adjustment, additional coping skills, increased outpatient services Suicide Risk Level Suicide Risk Level: Moderate (q15 min suicide checks) (mood lability with helplessness, but feels safe in the hospital and able to ask for support) Risk Factors Assessment Male: No : Yes Do You Have Access To A Gun?: No Health Problems: Yes Mental Health Diagnoses: Yes Substance Use Disorders: No Previous Attempt: No Family History of Suicide: No Previous Psychiatric Hospitalization: Yes Protective Factors Assessment Responsible for Young Children: Yes (helped watch her grandchild until July ) Employed: No (disabled) Stable Relationships: Yes Interval History Identifying Information YOGI LONG is a 58-year-old woman who currently lives in [place] alone, has a history of BPAD, ADHD, anxiety and depression and was admitted on 10/20/23 21:08 on a 201 voluntary commitment for mood changes and concern for episode of julio. Diagnostically consistent with unspecified mood disorder with differential including BPAD current mixed episode vs MDD with irritability and anxious distress vs PTSD. She did complete a mood disorder questionnaire which was positive for likely history of julio and BPAD. Chief Complaint "Really good" Review of Systems Sleep Information Total Hours of Sleep: 6 Sleep Comments: PRN Vistaril given Meal Information Percent Meal Consumed - Breakfast: 100 Percent Meal Consumed - Lunch: 75 Percent Meal Consumed - Dinner: 75 Subjective Subjective Patient was seen & assessed and interval progress reviewed with treatment team nursing and social work Overnight patient was irritable and tearful. Visit with family went well. Received Vistaril and tramadol PRN. Patient reports having good bowel movement. Stool consistency soft. Denies having stomach pain. Rates migraine 6 out of 10 and reports less frequent. Says she slept well and feels rested. Says she was upset about a peer taking the radio however is learning to better control her anger. Patient is often distracted during the interview and requires prompting to refocus. Updated about the care plan and reassured. Spoke to patient's son with pt permission: Did not disclose any concerns. Reports patient's condition is improving. Physical Exam Mental Examination Appearance: Unkempt Eye Contact: Maintains Eye Contact Motor Behavior: Unremarkable Speech: Normal and Circumstantial Mood: Euthymic, Calm and Irritable Affect: Congruent Thought Process: Intact and Circumstantial Thought Content: Intact Hallucinations: None Insight: Poor (improving) Judgement: Poor (improving) Vital Signs (Past 24 Hours) Last Vital Signs Temp 35.6 C L 10/26/23 06:00 Pulse 80 10/26/23 06:17 Resp 16 10/26/23 06:00 BP 147/63 H 10/26/23 06:17 Pulse Ox 97 10/25/23 05:04 O2 Del Method Room Air 10/25/23 05:04 Results & Data ([facility]) Laboratory Results Laboratory Results - last 24 hr 10/20/23 14:49 U Amphetamines Confirm 1325 H U Methamphetamin Confrm NEGATIVE Urine MDEA negative MDMA negative Urine MDMA negative U OH-Alprazolam Confrm NEGATIVE 7-Amino Clonazepam 1470 H Ur Nordiazepam Confirm NEGATIVE U OH-ethylflurazepam NEGATIVE U Lorazepam Cnf GC/MS NEGATIVE U Oxazepam Confm GC/MS NEGATIVE Ur Temazepam Confirm NEGATIVE U OH-Triazolam Confirm NEGATIVE U OH-Midazolam Confirm NEGATIVE U Marijuana THC Carboxy 609 H Drug Screen Comment SEE NOTE Current Inpatient Medications Current Inpatient Medications: Current Inpatient Medications Acetaminophen (Acetaminophen 325 Mg Tab) 650 mg PO Q4H PRN PRN Reason: Headache or Minor Fever Stop: 11/19/23 21:55 Last Admin: 10/24/23 10:30 Dose: 650 mg Al Hydrox/Mg Hydrox/Simethicone (Aluminum/Magnesium Susp 30 Ml Udc) 30 ml PO Q4H PRN PRN Reason: GI Upset Stop: 11/19/23 21:55 Albuterol (Albuterol Hfa 8 Gm Inhaler) 1 puffs INH Q6H PRN PRN Reason: ALLERGIES Stop: 11/20/23 10:51 Last Admin: 10/23/23 22:41 Dose: 1 puffs Amitriptyline HCl (Amitriptyline Hcl 25 Mg Tab) 25 mg PO HS DIRK Stop: 11/21/23 21:59 Last Admin: 10/25/23 21:26 Dose: 25 mg Artificial Tears (Artificial Tears) 1 drops OP BID DIRK Stop: 11/20/23 20:59 Last Admin: 10/26/23 08:09 Dose: 1 drops Bismuth Subsalicylate (Bismuth Subsalicylate Liqd 236 Ml) 15 ml PO PRN PRN PRN Reason: Loose Stool Stop: 11/19/23 21:55 Clonazepam (Clonazepam 1 Mg Tab) 1 mg PO HS DIRK Stop: 11/21/23 21:59 Last Admin: 10/25/23 21:23 Dose: 1 mg Clonazepam (Clonazepam 0.5 Mg Tab) 0.5 mg PO QAM DIRK Stop: 11/22/23 08:59 Last Admin: 10/26/23 08:04 Dose: 0.5 mg Diclofenac Sodium (Diclofenac Sod 1% Gel 100 Gm Tube) 2 gm EXT BID [facility]; Protocol Stop: 11/22/23 12:29 Last Admin: 10/26/23 08:09 Dose: 2 gm Docusate Sodium (Docusate Sodium 100 Mg Cap) 100 mg PO BID [facility] Stop: 11/22/23 12:29 Last Admin: 10/26/23 08:07 Dose: 100 mg Ergocalciferol (Ergocalciferol 1250 Mcg (50,000 Units) Cap) 1,250 mcg PO DAILY [facility] Stop: 11/20/23 10:14 Last Admin: 10/26/23 08:11 Dose: 1,250 mcg Fish Oil ([place]-3 (Purified Fish Oil) 1 Gm Cap) 1 gm PO BID DIRK Stop: 11/21/23 12:29 Last Admin: 10/26/23 08:05 Dose: 1 gm Fluticasone Propionate (Fluticasone Propionate Na Spr 16 Gm Btl) 1 sprays NA DAILY DIRK Stop: 11/24/23 08:59 Last Admin: 10/26/23 08:03 Dose: 1 sprays Fluticasone/Vilanterol (Fluticasone/Vilanterol 200/25mcg 14 Puffs/Inhaler) 1 puffs INH DAILY [facility] Stop: 11/21/23 08:59 Last Admin: 10/26/23 08:11 Dose: 1 puffs Hydrochlorothiazide (Hydrochlorothiazide 25 Mg Tab) 25 mg PO DAILY [facility] Stop: 11/20/23 10:59 Last Admin: 10/26/23 08:03 Dose: 25 mg Hydrocortisone (Hydrocortisone Hc 2.5% Crm 30gm Tube) 1 appln EXT TID [facility] Stop: 11/24/23 13:59 Last Admin: 10/26/23 05:58 Dose: 1 appln Hydroxyurea (Hydroxyurea 500 Mg Cap) 500 mg PO BID@1300,2200 [facility] Stop: 11/20/23 12:59 Last Admin: 10/26/23 12:46 Dose: 500 mg Hydroxyzine HCl (Hydroxyzine Hcl 25 Mg Tab) 50 mg PO HSZ PRN PRN Reason: Insomnia Stop: 11/19/23 21:55 Last Admin: 10/24/23 23:35 Dose: 50 mg Hydroxyzine HCl (Hydroxyzine Hcl 25 Mg Tab) 25 mg PO Q4H PRN PRN Reason: Anxiety Stop: 11/19/23 21:55 Last Admin: 10/26/23 12:32 Dose: 25 mg Terrell Carbonate (Terrell Carbonate 450 Mg Tabcr) 450 mg PO HS [facility] Stop: 11/22/23 21:59 Last Admin: 10/25/23 21:27 Dose: 450 mg Loratadine (Loratadine 10 Mg Tab) 10 mg PO HS [facility] Stop: 11/20/23 21:59 Last Admin: 10/25/23 21:28 Dose: 10 mg Losartan Potassium (Losartan Potassium 50 Mg Tab) 50 mg PO DAILY [facility] Stop: 11/20/23 10:14 Last Admin: 10/26/23 08:11 Dose: 50 mg Magnesium Hydroxide (Magnesium Hydroxide Susp 30 Ml Udc) 30 ml PO DAILY PRN PRN Reason: Constipation Stop: 11/19/23 21:55 Last Admin: 10/24/23 05:27 Dose: 30 ml Miscellaneous (Remove Nicoderm Patch) 1 each N/A DAILY@0859 [facility] Stop: 11/20/23 08:58 Last Admin: 10/26/23 08:05 Dose: 1 each Miscellaneous (Olopatadine 0.2 % Drops- Order Awaiting Action) 1 each N/A QS [facility] Stop: 11/20/23 15:59 Last Admin: 10/26/23 08:10 Dose: Not Given Miscellaneous (Perfluorohexyloctane (Pf) [Miebo (Pf)] Eye Drops Order Awaiting Action) 1 each N/A QS [facility] Stop: 11/20/23 15:59 Last Admin: 10/26/23 08:10 Dose: Not Given Nicotine (Nicotine 21 Mg/24 Hr Tdsy) 1 patch TD QAM DIRK Stop: 11/20/23 08:59 Last Admin: 10/26/23 08:04 Dose: 1 patch Nicotine Polacrilex (Nicotine Polacrilex 2 Mg Gum) 1 piece MT PRN PRN PRN Reason: tobacco cessation Stop: 11/20/23 19:04 Last Admin: 10/26/23 10:42 Dose: 1 piece Olanzapine (Olanzapine 10 Mg Tab) 10 mg PO HS [facility] Stop: 11/20/23 21:59 Last Admin: 10/25/23 21:28 Dose: 10 mg Olanzapine (Olanzapine 2.5 Mg Tab) 2.5 mg PO BID PRN PRN Reason: Agitation/julio Stop: 11/20/23 20:59 Last Admin: 10/24/23 17:04 Dose: 2.5 mg Ondansetron HCl (Ondansetron 4 Mg Od Tab) 4 mg PO Q6H PRN PRN Reason: Nausea Stop: 11/20/23 10:01 Last Admin: 10/25/23 07:42 Dose: 4 mg Polyethylene Glycol (Polyethylene (Miralax) 17 Gm Pack) 17 gm PO DAILY DIRK Stop: 11/24/23 10:59 Last Admin: 10/26/23 08:06 Dose: 17 gm Psyllium Hydrophilic Mucilloid (Psyllium Or Guar Gum Fiber 4gm Packet) 4 gm PO QAM DIRK Stop: 11/24/23 10:59 Last Admin: 10/26/23 08:26 Dose: Not Given Simethicone (Simethicone 80 Mg Chew) 80 mg PO QID PRN PRN Reason: Flatulence Stop: 11/23/23 20:49 Last Admin: 10/24/23 21:21 Dose: 80 mg Sodium Chloride (Sodium Chloride 0.65% Na Soln 45 Ml ([place])) 1 - 2 sprays NA PRN PRN PRN Reason: Nasal Dryness/Congestion Stop: 11/19/23 21:55 Sumatriptan Succinate (Sumatriptan Succinate 25 Mg Tab) 25 mg PO DAILY PRN PRN Reason: Migraine Headache Stop: 11/20/23 11:32 Last Admin: 10/23/23 11:32 Dose: 25 mg Tizanidine HCl (Tizanidine Hcl 4 Mg Tablet) 4 mg PO Q8H PRN PRN Reason: MUSCLE SPASMS Stop: 11/20/23 10:49 Tramadol HCl (Tramadol Hcl 50 Mg Tablet) 50 mg PO TID PRN PRN Reason: Pain Stop: 11/22/23 12:04 Last Admin: 10/26/23 05:58 Dose: 50 mg Mental Health & Subst Abuse Tx Psychiatrist Name of Psychiatrist: Cornelia Psychiatrist's Date Of Appointment With Psychiatric Provider: 11/15/23Tuesday Time of Appointment with Psychiatrist: 1:30pm Psychiatric Appointment Comment: Please call if you need to reschedule Therapist Name of Therapist: [facility] Date of Therapist Appointment: 11/04/23 Time of Therapist Appointment: 11:00 Endoscopic Technician Name of Endoscopic Technician: Dimitri SULLIVAN Date of Appointment with Endoscopic Technician: 11/01/23 Case Management Appointment Comment: manager home healthcare will inform you of the time of the appt upon discharge Post Discharge Appointments Primary Care Physician Name Of Family Doctor/PCP: [facility] Date of Future Appointment with PCP: 11/03/23 - Time of Appointment with PCP: 12:30 PM Specialist Name of Specialist: Orthopedics Specialty Appointment Comment: Please be sure to reschedule your missed ortho appt.
[2023-10-26] MEDS: MAGNESIUM CITRATE 296 ML/BTL PO STA (20:05)
[2023-10-26] MEDS: AMITRIPTYLINE HCL 25 MG TAB PO SCH (21:47)
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
[2023-10-27] MEDS: GLYCERIN ADULT 12 SUPP/BOX SUPP PR ONE (15:19)
[2023-10-27] MEDS: traZODone HCL 50 MG TAB PO SCH (21:12)
[2023-10-28 06:41] VITALS: BP 129/81; TEMP 98.1
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
[2023-10-28 10:02] VITALS: PULSE 70
== END 2023-10-28 11:02 | disposition home or self-care (01) | DRG 885 ==
LOC: ED 14:05 → 3S 20:59

== ENCOUNTER 2024-01-24 07:28 | Observation (INO) ==
--- NOTE | 2023-12-27 12:47 | PAT Medication Instructions ---
Medication Instructions Date of Service December 27, 2023 Home Medications Medication Instructions Recorded clonazepam 0.5 mg tablet 0.5 mg PO QAM #30 tabs 10/28/23 clonazepam 1 mg tablet 1 mg PO HS #30 tabs 10/28/23 lithium carbonate 600 mg capsule 600 mg PO HS #30 caps 10/28/23 olanzapine 10 mg tablet 10 mg PO HS #30 tabs 10/28/23 Medical Marijuana Card 1 dose UD PRN albuterol sulfate 90 mcg/actuation aerosol inhaler 1 inh inhalation UD PRN ergocalciferol (vitamin D2) 1,250 mcg (50,000 unit) capsule (Vitamin D2) 1,250 mcg PO WK hydrochlorothiazide 25 mg tablet 25 mg PO QAM hydroxyurea 500 mg capsule 500 mg PO BID tizanidine 4 mg tablet 4 mg PO Q8H PRN trazodone 100 mg tablet 150 mg PO HS losartan 50 mg tablet 50 mg PO QAM ondansetron 4 mg disintegrating tablet 4 mg PO Q6H PRN perfluorohexyloctane (PF) 100 % eye drops (Miebo (PF)) 1 drp ophthalmic (eye) TID clonazepam 0.5 mg tablet 0.5 mg PO QAM clonazepam 1 mg tablet 1 mg PO HS lithium carbonate 600 mg capsule 600 mg PO HS olanzapine 10 mg tablet 10 mg PO HS Air Shield 1 tab PO QAM albuterol sulfate 1.25 mg/3 mL solution for nebulization 1.25 mg inhalation QID PRN dextroamphetamine-amphetamine 10 mg tablet 10 mg PO UD fluticasone propionate 50 mcg/actuation nasal spray,suspension 1 spray NA DAILY PRN montelukast 10 mg tablet 10 mg PO HS multivitamin with minerals-folic acid 200 mcg chewable tablet (Multivitamin Gummies) 1 tab PO QAM omega-3 fatty acids 1,000 mg PO QAM polyethylene glycol 3350 17 gram oral powder packet (Miralax) 17 g PO QAM sumatriptan succinate 25 mg tablet 25 - 50 mg PO DAILY PRN Continue as directed albuterol sulfate 90 mcg/actuation aerosol inhaler 1 inh inhalation UD PRN(if needed) fluticasone propionate 50 mcg/actuation nasal spray,suspension 1 spray NA DAILY PRN(if needed) sumatriptan succinate 25 mg tablet 25 - 50 mg PO DAILY PRN(if needed) ASK your prescriber and surgeon hydroxyurea 500 mg capsule 500 mg PO BID STOP taking 2 weeks before surgery (or as soon as possible if surgery is within 2 weeks) Air Shield 1 tab PO QAM omega-3 fatty acids 1,000 mg PO QAM STOP taking 24 hours before surgery Medical Marijuana Card 1 dose UD PRN DO NOT take the morning of surgery ergocalciferol (vitamin D2) 1,250 mcg (50,000 unit) capsule (Vitamin D2) 1,250 mcg PO WK hydrochlorothiazide 25 mg tablet 25 mg PO QAM losartan 50 mg tablet 50 mg PO QAM dextroamphetamine-amphetamine 10 mg tablet 10 mg PO UD multivitamin with minerals-folic acid 200 mcg chewable tablet (Multivitamin Gummies) 1 tab PO QAM polyethylene glycol 3350 17 gram oral powder packet (Miralax) 17 g PO QAM Take morning of surgery With a small sip of water, OTHERWISE NOTHING TO EAT OR DRINK AFTER MIDNIGHT: tizanidine 4 mg tablet 4 mg PO Q8H PRN(if needed) ondansetron 4 mg disintegrating tablet 4 mg PO Q6H PRN(if needed) perfluorohexyloctane (PF) 100 % eye drops (Miebo (PF)) 1 drp ophthalmic (eye) TID clonazepam 0.5 mg tablet 0.5 mg PO QAM albuterol sulfate 1.25 mg/3 mL solution for nebulization 1.25 mg inhalation QID PRN(use if needed; please bring with you to hospital day of surgery if possible) Take evening before surgery tizanidine 4 mg tablet 4 mg PO Q8H PRN(if needed) trazodone 100 mg tablet 150 mg PO HS ondansetron 4 mg disintegrating tablet 4 mg PO Q6H PRN(if needed) perfluorohexyloctane (PF) 100 % eye drops (Miebo (PF)) 1 drp ophthalmic (eye) TID clonazepam 1 mg tablet 1 mg PO HS lithium carbonate 600 mg capsule 600 mg PO HS olanzapine 10 mg tablet 10 mg PO HS albuterol sulfate 1.25 mg/3 mL solution for nebulization 1.25 mg inhalation QID PRN(if needed) montelukast 10 mg tablet 10 mg PO HS Other Notes If you have any questions please call us at [phone] or [phone] or [phone] or [phone]
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
[2024-01-24] MEDS ORDERED: fentaNYL citrate PF 100 MCG/2 ML VIAL ONE ×3 (07:34→11:06)
[2024-01-24] MEDS ORDERED: MIDAZOLAM HCL 1 MG/ML 2ML VIAL ONE ×2 (07:36→08:48)
[2024-01-24] MEDS ORDERED: LIDOCAINE 2% 2 ML VIAL/AMP(20MG/ML) INFIL ONE (08:48)
[2024-01-24] MEDS ORDERED: PROPOFOL IV EMULSION 10 MG/ML 20 ML VIAL IV ONE ×2 (08:48→10:30)
[2024-01-24] MEDS ORDERED: ONDANSETRON INJ 2 MG/ML 2 ML VIAL ONE ×2 (08:48→11:56)
[2024-01-24] MEDS: ACETAMINOPHEN 500 MG TAB PO SCH ×2 (08:52→15:15)
[2024-01-24] MEDS: Scopolamine 1 MG TDSY TD SCH (08:53)
[2024-01-24] MEDS: LR 60ML/HR IV SCH (08:56)
[2024-01-24] MEDS: LR 500ML BOLUS, THEN 15ML/HR IV SCH (08:56)
[2024-01-24] MEDS ORDERED: ATROPINE SULFATE 0.1 MG/ML 10ML SYR IV PRN (09:02)
[2024-01-24] MEDS ORDERED: ONDANSETRON INJ 2 MG/ML 2 ML VIAL IV PRN (09:02)
[2024-01-24] MEDS ORDERED: ePHEDrine sulfate 50 MG/ML AMP IV PRN (09:02)
[2024-01-24] MEDS: ALBUT/IPRATROP 3MG/0.5MG NEB 3 ML VIAL NEB STA (09:15)
--- NOTE | 2024-01-24 09:24 | History & Physical Bridge Note ---
Date of Service January 24, 2024 History & Physical Bridge Note I have examined the patient, reviewed the History & Physical and in the interval since the performance of the History & Physical I have noted the following changes of clinical significance: no changes noted
[2024-01-24] MEDS: TRANEXAMIC ACID 1,000 MG **IV Pre-op IV SCH (09:32)
[2024-01-24] MEDS: ceFAZolin 2000MG 2,000 MG/15 ML SYR IV SCH ×2 (09:56→17:27)
[2024-01-24] MEDS ORDERED: DEXAMETHASONE SOD INJ 4 MG/ML VIAL ONE (10:04)
[2024-01-24] MEDS ORDERED: KETAMINE HCL 10MG/ML SYR ONE (10:04)
[2024-01-24] MEDS ORDERED: HYDROmorphone INJ 2 MG/ML SYR/VIAL ONE (10:04)
[2024-01-24] MEDS: ROPIV 0.5% 246mg, Ketorolac 30mg, EPINEPHrine 0.5mg in NSS INFIL SCH (10:27)
[2024-01-24] MEDS: TRANEXAMIC ACID 1,000 MG **IV Intra-op IV SCH (11:45)
[2024-01-24] MEDS ORDERED: KETOROLAC 30 MG/ML VIAL ONE (11:56)
[2024-01-24] MEDS ORDERED: LABETALOL HCL IV 5 MG/ML 20ML IV ONE (11:57)
--- NOTE | 2024-01-24 12:07 | Operative Report ---
Post Operative Report Pre & Post Diagnosis Operation Date: 01/24/24 10:00 Pre-Op Diagnosis: Right Knee Osteoarthritis Post-Op Diagnosis: Right Knee Osteoarthritis I identified the patient and participated in the time-out.: Yes Procedure Operation Date: 01/24/24 10:00 Actual Procedures p Right Total knee replacement, imageless computer assisted navigation (Right) - Bert Méndez MD Surgeon Bert Méndez MD Maintenance Of Way Supervisor Terry Hinton PA-C (No fellow avail) Estimated Blood Loss 75 Findings See Below Examined Under Anesthesia: ROM -- There was 5 degrees to 120 degrees of flexion Ligamentous examination -- revealed stable Mayo, posterior drawer, varus and valgus stress at 5 and 30 degrees. [place] Grade IV changes of patellofemoral & medial compartment, grade III changes lateral compartment. Marginal osteophytes. Significant inflamed suprapatellar pouch.. Fluids 800 cc Specimens Right knee contents Anesthesia Type General Regional Complications none Indications This is a 58-year-old female who has clinical and radiographic findings consistent with osteoarthritis of the a right knee. I recommended that a right total knee replacement be performed. The patient understands the risks of surgery, which include but not limited to: bleeding, infection, re-operation, damage to nerves and arteries, continued knee pain, knee stiffness, DVT, and . The patient understands all these instructions and explanations, all his questions have been satisfactorily addressed and the patient has elected to proceed. Informed consent was signed. Description of Procedure IMPLANTS: 1. Femur: Triathlon #4 Right PS. 2. Tibia: Triathlon #3 [place] with 12 x 50 mm stem. 3. Insert: Triathlon #3 x 16 mm PS X3 poly. 4. Patella: Triathlon A29 x 9 mm X3 poly. 5. [place] cement. Terry Hinton PA-C is assisting with positioning, retracting, and closure due to fellow not available. Procedure: The patient was taken to the Operating Room and placed in the supine position after general and adductor canal nerve block was administered. My initials and a multidisciplinary time-out were used to identify the right leg as the correct operative limb. A tourniquet was placed high in the thigh. Prior to the incision, 2 grams of intravenous Ancef were given. One g of TXA was given pre- operatively and another after the tourniquet was released. The right leg was then prepped and draped in a standard sterile fashion. An Esmarch was used to exsanguinate the leg and the tourniquet was inflated to 250 mmHg. The planned mid-line 20 cm incision was created exposing the extensor mechanism. The medial parapatellar arthrotomy was made and the patella was everted. The patella was addressed first. It was prepared by reaming from 22 mm down to 13 mm. An A29 button was found to fit best. The peg holes were made in the standard fashion. The femur was addressed next and using computer assisted OrthoAlign with 3 degrees of flexion and 0 degrees of valgus, removing 10 mm in the standard fashion for the distal cut. The cut was made and the 4-in-1 cutting block for a size 4 femur was placed. These cuts and the cuts to place the box were made in the standard fashion. Our attention was then drawn to the tibia cut with using imageless computer assisted OrthoAlign, taking 2 mm from the medial low side. There was sufficient extension and flexion gap to fit a 16 mm spacer. A #3 Tibial baseplate fit well. A trial with a 16 mm spacer showed excellent stability in both flexion and extension, with good ligament balance, and thumbs free patellar tracking. Range of motion of 0-130 degrees. The tibial baseplate was prepped for the keel and stem. A stem was used due to some areas of soft bone, to avoid subsidence. All components were removed. 90 ml of total knee cocktail were injected into the soft tissues and periosteum. All surfaces were copiously irrigated prior to placement of the components. The femoral component followed by Tibial baseplate were cemented in place and a 16 mm trial placed. Next, the patellar button was placed using the same cement. Once the cement had cured, the range of motion and stability were unchanged. The 16 mm X3 poly was placed. Again, the range of motion and stability were unchanged. The tourniquet was deflated. Hemostasis was obtained. Another 1g TXA was given. The extensor mechanism was closed with 1-0 Vicryl and 0 Stratafix with the knee bent approximately 60 degrees in a standard fashion. The peritenon and deep fascia was closed with 2-0 Vicryl. The subcutaneous layer was closed with 3-0 Vicryl. The skin was closed with Zipline and shield. The limb was cleaned and dried. 4x4 dressing was placed over top followed by ABDs, sterile Webril, and a foot to thigh Hector bandage. The patient was then transferred to the Recovery Room in stable condition. The sponge and needle counts were correct. POST-OP INSTRUCTIONS: The patient will be WBAT. The patient will be admitted to the hospital. Complete 24-hour course antibiotics. Labs will be obtained during the stay. DVT prophylaxis will include Eliquis for 6 weeks, TEDs, and mechanical foot pumps. The dressing will be changed postop day #2-3 and covered with a Silverlon dressing. I attest to the content of the Intraoperative Record and any orders documented therein. Any exceptions are noted below.
--- NOTE | 2024-01-24 12:07 | Post Operative Brief Note ---
Immediate Post Op Note Date of Surgery January 24, 2024 Pre & Post Diagnosis Operation Date: 01/24/24 10:00 Pre-Op Diagnosis: Right Knee Osteoarthritis Post-Op Diagnosis: Right Knee Osteoarthritis I identified the patient and participated in the time-out.: Yes Procedure Operation Date: 01/24/24 10:00 Actual Procedures p Right Total Knee Arthroplasty(Right) - Bert Méndez MD Surgeon Bert Méndez MD Mushroom Picker Terry Hinton PA-C (No fellow avail) Estimated Blood Loss 75 Findings Consistent with Post-Op Diagnosis Fluids 800 cc Specimens Right knee contents Anesthesia Type General Regional Complications none
--- OUTSIDE RECORDS SUMMARY | 2024-01-24 12:19 | External Medical Summary | Summary of Care ---
Author Name Unknown Organization [facility] Address [address] [place] [address] Phone [phone] Care Team Providers Care Physician Compensation Analyst Name Role Phone Bassam Phillip DO Primary Care Provider [phone] Encounter Details Date Type Department Care Team (Late st Contact Info) Description 10/24/[address] [facility] [address] [place] [address] Bassam Phillip DO [address] [place] [address] Allergies Active Allergy Reactions Criticality Noted Date Comments Adhesive Tape Rash 10/11/2016 Amoxicillin 10/17/2019 Other reaction(s): Rash Fluconazole 08/12/2021 Latex Rash 10/12/2010 Nystatin 04/04/2017 Skin/facial discoloration documented as of this encounter (statuses as of 01/23/2024) Medications Spacer/Aero-Hold ing Chambers ZONIA Use with inhaler. 1 Device 0 015 Active traZODone (DESYREL) 100 MG Tablet Take 1 Tablet by mouth at bedtime. 2 016 Active Mometasone Furo-Formoterol Fum (DULERA) 200-5 MCG/ACT Inhaler Inhale 2 Puffs by mouth 2 times a day. 1 Inhaler 5 Active methocarbamol (ROBAMOL) 500 MG Tablet TAKE 3 TABLETS BY MOUTH 4 TIMES A DAY NEEDED 360 Tab 5 Active amphetamine-dext roamphet ER (ADDERALL XR) 30 MG [id number]: ADHD (attention deficit hyperactivity disorder), combined type Take 1 Cap by mouth daily. JulyJune 05 30 Cap Active fluticasone (FLONASE) 50 MCG/ACT nasal spray Administer 2 Sprays into each nostril daily. 1 Inhaler 5 Active VENTOLIN HFA 108 (90 BASE) MCG/ACT inhalerIndicatio ns:Sinobronchiti s INHALE 1-2 PUFFS EVERY 4-6 HOURS NEEDED FOR DIFFICULTY BREATHING 18 Inhaler 2 Active doxepin (SINEQUAN) 25 MG CapsuleIndicatio ns:patient only taking at night Indications: patient only taking at night 2 Active promethazine (PHENERGAN) 25 MG Tablet Take 1 Tablet by mouth in the morning. Active DULoxetine (CYMBALTA) 30 MG CPEP TAKE 1 CAPSULE BY MOUTH EVERY DAY Active dicyclomine (BENTYL) 20 MG Tablet dicyclomine 20 mg tablet Active lidocaine-priloc jennifer (EMLA) 2.5-2.5 % cream lidocaine-priloca ine 2.5 %-2.5 % topical cream Active Polyethyl Glycol-Propyl Glycol (SYSTANE) 0.4-0.3 % ophthalmic solution Instill into eye as needed for Dry eyes. Active Erythromycin 5 MG/GM Ophthalmic Ointment Instill 0.25 Inches into both eyes at bedtime. 3.5 g Active Tyrvaya 0.03 MG/ACT Nasal Solution (Varenicline Tartrate) Administer 1 [place] into nostril in the morning and 1 [place] before bedtime. 4.2 mL Active Miebo 1.338 GM/ML Ophthalmic Solution (Perfluorohexylo ctane) Instill 1 Drop into eye in the morning and 1 Drop at noon and 1 Drop in the evening and 1 Drop before bedtime. 3 mL Active Gabapentin 600 MG TabletIndication s:Fibromyalgia TAKE 1 TABLET BY MOUTH 3 TIMES A DAY. 90 Tab 5 016 2023 Discontinued cetirizine (ZYRTEC) 10 MG TabletIndication s:Allergic conjunctivitis, left TAKE 1 TABLET BY MOUTH DAILY. 30 Tab 5 017 2023 Discontinued DIPHENHIST 25 MG Capsule TAKE 1 CAPSULE BY MOUTH EVERY 4 HOURS NEEDED 5 2023 Discontinued clonazePAM (KLONOPIN) 1 MG Tablet 1/2 tablet in the am and 1 tablet at bedtime 1 2023 Discontinued montelukast (SINGULAIR) 10 MG Tablet TAKE 1 TABLET BY MOUTH DAILY. 30 Tab 11 017 2023 Discontinued losartan-hctz 100-25 mg per tab (HYZAAR) 100-25 MG per tablet TAKE 1 TABLET BY MOUTH DAILY. 30 Tab 5 017 2023 Discontinued escitalopram (LEXAPRO) 20 MG Tablet Take 1 Tab by mouth daily. 0 018 2023 Discontinued benzonatate (TESSALON PERLES) 100 MG Capsule benzonatate 100 mg capsule 2023 Discontinued cyclobenzaprine (FLEXERIL) 5 MG Tablet cyclobenzaprine 5 mg tablet 2023 Discontinued ibuprofen (MOTRIN) 600 MG Tablet ibuprofen 600 mg tablet 2023 Discontinued naproxen (NAPROSYN) 500 MG Tablet naproxen 500 mg tablet 2023 Discontinued cloNIDine (CATAPRES) 0.1 MG Tablet 2023 Discontinued methocarbamol (ROBAMOL) 750 MG Tablet 2023 Discontinued ARIPiprazole 5 MG Oral Tablet (Abilify) TAKE 1 TABLET BY MOUTH EVERYDAY AT BEDTIME 2023 Discontinued busPIRone HCl 15 MG Oral Tablet (Buspar) Take by mouth 15 mg in the morning. 2023 Discontinued busPIRone HCl 30 MG Oral Tablet TAKE 1 TABLET BY MOUTH EVERY DAY IN THE MORNING 2023 Discontinued buPROPion HCl ER (XL) 150 MG Oral Tablet Extended Release 24 Hour (Wellbutrin XL) TAKE 1 TABLET BY MOUTH DAILY WITH A BUPROPION HCL XL 300 MG TABLET TO EQUAL 450 MG DAILY 022 2023 Discontinued documented as of this encounter (statuses as of 01/23/2024) Active Problems Problem Noted Date Diagnosed Date [...] as of this encounter (statuses as of 01/23/2024) Immunizations Name Administration Dates Next Due Pneumococcal [...] = 0.6 oz pur e alcohol) occ Comments No Sex and Gender Information Value Date Recorded Sex Assigned at Not on file Legal Sex Female 7:01 AM EST Gender Identity Not on file Sexual Orientation Not on file documented as of this encounter Miscellaneous Notes * Telephone Encounter - Jakob Flores OSA - 10/24/2023 2:17 PM EDT Patient would like all medical records transferred to [facility] for the purpose of continued care. Forward [facility] documented in this encounter Plan of Treatment Upcoming Encounters Date Type Department Care Team ([facility] st Contact Info) Description 02/13/2024 11:30 AM EST Rehab Services Physical Therapy [address] [phone] Sindhu Berkowitz, PT [address] [place] [address] 02/15/2024 11:30 AM EST [facility] [address] [phone] Sary Patel, VELVET CUTTER [address] [place] [address] 02/17/2024 11:30 AM EST [facility] [address] [phone] Meera Gr, VELVET CUTTER [address] [place] [address] 02/20/2024 11:30 AM EST Re[facility] Physical Therapy [address] [phone] Meera Gr, [address] [address] 02/22/2024 11:30 AM EST Re[facility] Physical Therapy [address] [phone] Sary Patel, VELVET CUTTER [address] [place] [address] 02/24/2024 11:30 AM EST [facility] Therapy [address] [phone] Sary Patel, VELVET CUTTER [address] [place] [address] 02/27/2024 11:30 AM EST [facility] [address] [phone] Meera Gr, VELVET CUTTER [address] [place] [address] 03/02/2024 3:30 PM EST Re[facility] [address] [phone] Sary Patel, VELVET CUTTER [address] [place] [address] 03/05/2024 11:30 AM EST [facility] [address] [phone] Meera Gr, VELVET CUTTER [address] [place] [address] 03/08/2024 11:30 AM EST [facility] [address] [phone] Sindhu Berkowitz, PT [address] [place] [address] 2024 11:30 AM EST [facility] [address] [phone] Meera Gr, VELVET CUTTER [address] [place] [phone] 03/15/2024 11:30 AM EST [facility] [address] [phone] Sary Patel, VELVET CUTTER [address] [place] [address] [address] [place] [address] 03/19/2024 11:30 AM EST Rehab Services Physical Therapy [facility] [address] [facility] [address] [place] [phone] Meera Gr, VELVET CUTTER [address] [place] [address] 03/22/2024 11:30 AM EST Rehab Services Physical Therapy [facility] 68 [facility] [address] [place] [address] Sary Patel, VELVET CUTTER [address] [place] [address] [address] [place] [address] 03/26/2024 11:30 AM EST Rehab Services Physical Therapy [address] [place] [phone] Sindhu Berkowitz, PT [address] [place] [address] 07/16/2024 3:00 PM EDT Office Visit Optometry, [place] [address] Parminder Joyner OD [address] [place] [address] Health Maintenance Due Date Last Done Comments Lipid Panel 1965 Cologuard 2010 Colonoscopy 2010 Sigmoidoscopy 2010 Zoster Vaccines (1 of 2) 2015 Mammogram 03/14/2016 03/14/2015, 03/27/2014 Depression Monitoring 06/10/2016 06/11/2015 Colorectal Cancer Screening 01/25/2017 Fecal Occult Blood Test 01/25/2017 01/26/2016 DTap/Tdap Vaccines (2 - Td or Tdap) 10/16/2023 10/15/2013 COVID-19 Vaccine ( season) 2023 11/26/2021, 08/27/2021, 02/19/2021, Additional history exists Influenza Vaccine (FLU shot) (#1) 2023 11/24/2022, 11/26/2021, 12/31/2019, Additional history exists Pap Smear 07/14/2025 07/14/2022 Diabetes Screening 11/15/2026 11/16/2023, 0 11/12/2023, 07/14/2023, Additional history exists Cervical Cancer Screening 07/15/2027 [...] Advance Directives occurred with: Patient Care Teams Physician Compensation Analyst Relationship Specialty Start Date End Date Bassam Phillip DO [address] [place] [address] [address] [place] [address] [address] [phone] PCP - General Family Medicine 09/23/23 documented as of this encounter
--- OUTSIDE RECORDS SUMMARY | 2024-01-24 12:19 | External Medical Summary | Summary of Care ---
Author Name Unknown Organization [facility] Address [address] [place] [address] Phone [phone] Care Team Providers Care Insurance Claim Auditor Name Role Phone KenjiBassam Primary Care Provider [phone] Reason for Visit * Reason Comments Dry Eyes States she is doing some better with the Miebo drops, she is using them three times a day. Needs new glasses. Encounter Details Date Type Department Care Team (Late st Contact Info) Description 01/02/2024 9:20 AM EDT [facility] [address] [place] [address] Parminder Joyner, ADAN [address] [place] [address] Dry eyes, bilateral*; Disorder of refraction and accommodation Allergies Active Allergy Reactions Criticality Noted Date Comments Adhesive Tape Rash 10/11/2016 Amoxicillin 10/17/2019 Other reaction(s): Rash Fluconazole 08/12/2021 Latex Rash 10/12/2010 Nystatin 04/04/2017 Skin/facial discoloration documented as of this encounter (statuses as of 01/02/2024) Medications Medication Sig Dispensed Refills Start Date End Date Status Spacer/Aero-Holdi ng Chambers ZONIA Use with inhaler. 1 Device 0 12/17/19 15 Active traZODone (DESYREL) 100 MG Tablet Take 1 Tablet by mouth at bedtime. 2 11/21/19 16 Active Mometasone Furo-Formoterol Fum (DULERA) 200-5 MCG/ACT Inhaler Inhale 2 Puffs by mouth 2 times a day. 1 Inhaler 5 12/24/19 16 Active methocarbamol (ROBAMOL) 500 MG Tablet TAKE 3 TABLETS BY MOUTH 4 TIMES A DAY NEEDED 360 Tab 5 02/10/20 16 Active amphetamine-dextr oamphet ER (ADDERALL XR) 30 MG [id number] DHD (attention deficit hyperactivity disorder), combined type Take 1 Cap by mouth daily. JulyJune 05 30 Cap 04/23/19 17 Active fluticasone (FLONASE) 50 MCG/ACT nasal spray Administer 2 Sprays into each nostril daily. 1 Inhaler 5 05/20/19 17 Active VENTOLIN HFA 108 (90 BASE) MCG/ACT inhalerIndication s:Sinobronchitis INHALE 1-2 PUFFS EVERY 4-6 HOURS NEEDED FOR DIFFICULTY BREATHING 18 Inhaler 2 08/27/19 17 Active doxepin (SINEQUAN) 25 MG CapsuleIndication s:patient only taking at night Indications: patient only taking at night 2 09/30/19 17 Active promethazine (PHENERGAN) 25 MG Tablet Take 1 Tablet by mouth in the morning. 10/29/19 17 Active DULoxetine (CYMBALTA) 30 MG CPEP TAKE 1 CAPSULE BY MOUTH EVERY DAY Active dicyclomine (BENTYL) 20 MG Tablet dicyclomine 20 mg tablet Active lidocaine-priloca ine (EMLA) 2.5-2.5 % cream lidocaine-prilocain e 2.5 %-2.5 % topical cream Active Polyethyl Glycol-Propyl Glycol (SYSTANE) 0.4-0.3 % ophthalmic solution Instill into eye as needed for Dry eyes. Active Erythromycin 5 MG/GM Ophthalmic Ointment Instill 0.25 Inches into both eyes at bedtime. 3.5 g 12 07/05/19 24 Active Tyrvaya 0.03 MG/ACT Nasal Solution (Varenicline Tartrate) Administer 1 [place] into nostril in the morning and 1 [place] before bedtime. 4.2 mL 6 07/05/19 24 Active Miebo 1.338 GM/ML Ophthalmic Solution (Perfluorohexyloc tane) Instill 1 Drop into eye in the morning and 1 Drop at noon and 1 Drop in the evening and 1 Drop before bedtime. 3 mL 12 07/05/19 24 Active hydroCHLOROthiazi de 25 MG Oral Tablet (Hydrodiuril) Take 1 Tablet by mouth in the morning. 06/15/19 24 Active Losartan Potassium 50 MG Oral Tablet (Cozaar) 11/04/19 24 Active hydrOXYzine HCl 25 MG Oral Tablet Take 1 Tablet by mouth 3 times a day as needed. 08/15/19 24 Active Multivitamin Women 50+ Oral Tablet Take by mouth. Active OLANZapine 10 MG Oral Tablet (zyPREXA) 10/28/19 24 Active SUMAtriptan Succinate 50 MG Oral Tablet (Imitrex) TAKE 1 TABLET BY MOUTH AT ONSET OF HEADACHE MAY REPEAT DOSE AFTER 2 HOURS, MAX 4 TABS/DAY 11/10/19 24 Active Ondansetron HCl 4 MG Oral TabletIndications :Nausea and vomiting, unspecified vomiting type Take 1 Tablet by mouth every 6 hours as needed for Nausea. 30 Tablet 11/12/19 24 Active Gabapentin 600 MG TabletIndications :Fibromyalgia TAKE 1 TABLET BY MOUTH 3 TIMES A DAY. 90 Tab 5 01/07/20 16 Discontinued cetirizine (ZYRTEC) 10 MG TabletIndications :Allergic conjunctivitis, left TAKE 1 TABLET BY MOUTH DAILY. 30 Tab 5 05/06/19 17 Discontinued DIPHENHIST 25 MG Capsule TAKE 1 CAPSULE BY MOUTH EVERY 4 HOURS NEEDED 5 09/07/19 17 Discontinued clonazePAM (KLONOPIN) 1 MG Tablet 1/2 tablet in the am and 1 tablet at bedtime 1 10/18/19 17 Discontinued montelukast (SINGULAIR) 10 MG Tablet TAKE 1 TABLET BY MOUTH DAILY. 30 Tab 11 02/01/20 17 Discontinued losartan-hctz 100-25 mg per tab (HYZAAR) 100-25 MG per tablet TAKE 1 TABLET BY MOUTH DAILY. 30 Tab 5 03/01/20 17 Discontinued escitalopram (LEXAPRO) 20 MG Tablet Take 1 Tab by mouth daily. 0 08/18/19 18 Discontinued benzonatate (TESSALON PERLES) 100 MG Capsule benzonatate 100 mg capsule Discontinued cyclobenzaprine (FLEXERIL) 5 MG Tablet cyclobenzaprine 5 mg tablet Discontinued ibuprofen (MOTRIN) 600 MG Tablet ibuprofen 600 mg tablet Discontinued naproxen (NAPROSYN) 500 MG Tablet naproxen 500 mg tablet Discontinued cloNIDine (CATAPRES) 0.1 MG Tablet 04/24/19 Discontinued methocarbamol (ROBAMOL) 750 MG Tablet 09/29/19 Discontinued ARIPiprazole 5 MG Oral Tablet (Abilify) TAKE 1 TABLET BY MOUTH EVERYDAY AT BEDTIME 11/04/19 Discontinued busPIRone HCl 15 MG Oral Tablet (Buspar) Take by mouth 15 mg in the morning. 10/11/19 024 Discontinued busPIRone HCl 30 MG Oral Tablet TAKE 1 TABLET BY MOUTH EVERY DAY IN THE MORNING 10/11/19 Discontinued buPROPion HCl ER (XL) 150 MG Oral Tablet Extended Release 24 Hour (Wellbutrin XL) TAKE 1 TABLET BY MOUTH DAILY WITH A BUPROPION HCL XL 300 MG TABLET TO EQUAL 450 MG DAILY 10/11/19 Discontinued Atomoxetine HCl 60 MG Oral Capsule (Strattera) Take 1 Capsule by mouth in the morning. 11/04/19 024 Discontinued documented as of this encounter (statuses as of 01/02/2024) Active Problems Problem Noted Date Diagnosed Date [...] as of this encounter (statuses as of 01/02/2024) Immunizations Name Administration Dates Next Due Pneumococcal [...] as of this encounter Progress Notes * Parminder Joyner, OD - 01/02/2024 10:14 AM EDT 01/02/24 HPI: Yelena Rubio is a 58 year old female that present to the clinic for evaluation of Dry Eyes(States she is doing some better with the Miebo drops, she is using them three times a day. Needs new glasses. 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 Past Surgical History: Procedure Laterality Date LAPAROSCOPY; CHOLECYSTECTOMY LEG/ANKLE SURGERY NEC Left Amado and plates MISCELLANEOUS ORDER (HS ONLY) Left 03/23/2017 Reinheimer- wedge eyelid PIN THUMB FX/DISLOCATION (NUSRAT) 10/16/2010 PERCUTANEOUS FIXATION CARPOMETACARPAL THUMB performed [place] TERRANCE PEREZ [place] [facility] [place]P ECTROPION;EXT TARSAL ST Left 01/15/2019 REPAIR OF ECTROPION EXTENSIVE TARSAL STRIP performed by Segundo Hanson DO at [facility] REPAIR OF KNEE CARTILAGE 11/18/2016 ROUTINE CARE AND DELIVERY 2 SUTURE REPAIR OF ECTROPION Left 01/15/2019 REPAIR ECTROPION SUTURE performed by Segundo Hanson DO at OR [facility] THUMB FX/DISLOC (SILVERIO), REPAIR 10/16/2010 OPEN TREATMENT CARPOMETACARPAL THUMB FRACTURE performed by TERRANCE PEREZ [place] [facility] Reviewed past medical, family, and social history. Reviewed nursing notes. Family Ocular History: Glaucoma (-), macular degeneration (-) Hemoglobin AIC Results: Hemoglobin AIC Results: No results found for: "HEMOGLOBIN A1C" Eye Medications: none Base Eye Exam Visual Acuity (Snellen - Linear) Right Left Dist sc 20/50-2 20/40 Dist ph sc 20/30 20/25-1 Forgot her distant glasses today Tonometry (Non-contact air puff, 9:52 AM) Right Left Pressure 18 18 Pupils Pupils Right PERRL Left PERRL Visual Hernández (Counting fingers) Right Left Full Full Extraocular Movement Right Left Full Full Neuro/Psych Oriented x3: Yes Mood/Affect: Normal Additional Tests Keratometry (Automated) K1 [place] K2 [place] Right 44.25 125 45.25 35 Left 44.50 104 45.25 14 Slit Lamp and Fundus Exam Slit Lamp Exam Right Left Lids/Lashes lid laxity, 2+ Meibomian gland dysfunction, mg atrophyEctropion 2+upper lid laxity, lower lid with moderate medial ectropion. Mg atrophy Conjunctiva/Sclera inferonasal palpebral conjunctiva is thickened with early keratinization. No symblepharon. No upper lid involvement. Few inferior papillae. No follicles. Scant clear discharge. Inferior bulbar conjunctiva with staining Significant thickening of inferonasal palpebral conjunctival epithelium with moderate keratinization extending 4-5 mm. No symblepharon. No upper lid involvement.Few inferior papillae. No follicles. Inferior bulbar conj with staining Cornea 1+inferonasal PEE 2+inferonasal an 1+inferior PEE Anterior Chamber Deep and quiet Deep and quiet Iris Round and reactive Round and reactive Lens Trace Nuclear sclerosis Trace Nuclear sclerosis Refraction Manifest Refraction (Auto) Sphere Cylinder [place] Dist [place] Add Right +0.75 -1.00 119 Left +0.50 -0.50 142 Manifest Refraction #2 Sphere Cylinder [place] Dist VA Add Right [place] -1.00 135 20/30 +2.50 Left -0.25 -1.00 140 20/30 +2.50 Final Rx Sphere Cylinder [place] Add Right [place] -1.00 135 Left -0.25 -1.00 140 Final Rx #2 Sphere Cylinder [place] Add Right [place] -1.00 135 +2.50 Left -0.25 -1.00 140 +2.50 Pertinent findings: Pertinent Ocular History: Current Ophthalmic Medications: Erythromycin Ointment (patient needs more) Genteal 1 gtt both eyes BID Restasis 1 gtt both eyes BID Systane 1 gtt every hour Ciprofloxacin HCI 0.3% BID OU for 7 days Pataday BID OU Tyrvaya BID in each nostril to help her dry eyes. Assessment and Plan: (H04.123) Dry eyes, bilateral (primary encounter diagnosis) Plan: EYEGLASS PRESCRIPTION Continue Erythromycin qhs OU Tryvaya bid [place] qid (H52.6) Disorder of refraction and accommodation Plan: New glasses prescription was issued. Monitor for changes in 1 year. Dry eye follow up and dilation 6 months There are no Patient Instructions on file for this visit. Return in about 6 months (around 07/02/2024). documented in this encounter Nursing Notes * Noris Muniz TECH - 01/02/2024 9:27 AM EDT Yelena Rubio is a 58 year old female who presents for Dry eyes. 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 Are you diabetic? No Current Ophthalmic Medications: Miebo 1 gtt 3x daily both eyes and systane hydration drops VISUAL ACUITY/TONOMETRY/GLASS RX: See Eye EXAM documented in this encounter Plan of Treatment Upcoming Encounters Date Type Department Care Team ([facility] st Contact Info) Description 07/16/2024 3:00 PM EDT Office Visit Optometry, [place] [address] [place] [address] Parminder Joyner, ADAN [address] [place] [address] Health Maintenance Due Date Last Done Comments [...] as of this encounter Visit Diagnoses Diagnosis Dry eyes, bilateral- Primary Tear film insufficiency, unspecified Disorder of refraction and accommodation Unspecified disorder of refraction and accommodation documented in this encounter Advance Directives * [...] Directives occurred with: Patient Care Teams Insurance Claim Auditor Relationship Specialty Start Date End Date Bassam Phillip DO [address] [facility] [address] [place] [address] [address] [id number] PCP - General Family Medicine 09/23/23 documented as of this encounter
--- OUTSIDE RECORDS SUMMARY | 2024-01-24 12:20 | External Medical Summary | Continuity of Care Document ---
Author Name Unknown Organization [id number] Address [address] [place] [phone] Encounter [facility] [id number] Date(s): 12/27/23 - 12/27/23 [facility] [address] [place], [place] [address] [facility] Medicine [address] [place] [id number] Encounter Diagnosis Osteoarthritis of knees, right(Discharge Diagnosis) - 12/27/23 Discharge Disposition: Home or Self Care Attending Physician: ZENIA Hinton, Leigh Referring Physician: MD Dev, Bert A Allergies, [...] the afternoon Start Date: 02/26/21 Status: Ordered CeleBREX 200 mg oral capsule Start: 12/16/23 4:38:00 PM EDT, See Instructions, Disp# 60 tab, Refills: 0, Take 1 capsule (200mg) twice a day for 2 weeks, then once a day for 1 week, and then as needed, PRN: as needed for pain, Pharmacy: [facility] #[id number] Start Date: 12/16/23 Status: Ordered ciprofloxacin 500 mg oral tablet Start: 03/24/22 2:45:00 PM EST, 1 tab, PO, q12h, Disp# 6 tab, [id number] Start Date: 03/24/22 Stop Date: 03/27/22 Status: Ordered clonazePAM 1 mg oral tablet Start: 05/07/20 1:18:00 PM EST, 1 tab, PO, qhs Start Date: 05/07/20 Status: Ordered cromolyn 4% ophthalmic solution Start: 10/14/20 1:30:00 PM EDT, 1 drop, both eyes, qid, Disp# 10 mL, Refills: 0, [id number] Start Date: 10/14/20 Status: Ordered diclofenac sodium 75 mg oral delayed release tablet Start: 09/27/23 1:02:00 PM EDT, 1 tab, PO, bid, Disp# 60 tab, Refills: 0, take with food., PRN: as needed for pain, Pharmacy: [id number] Start Date: 09/27/23 Status: Ordered erythromycin 0.5% ophthalmic ointment Start: 06/25/21 5:14:00 PM EDT, See Instructions, Disp# 3.5 g, Refills: 3, BID BOTH EYES, Note to Pharmacy: Please note increased frequency. Patient has been using it this way since last Rx. Please allow for another refill sooner (as soon as you are able to fill), Pharmacy: [facility] #[id number] Start Date: 06/25/21 Status: Ordered fluticasone [...] PO, tid Start Date: 02/26/21 Status: Ordered lithium Start: 11/15/23 9:11:00 AM EDT, 650 mg =, PO, night Start Date: 11/15/23 Status: Ordered losartan Start: 02/04/22 2:48:00 PM [...] PO, qPM Start Date: 02/26/21 Status: Ordered Strattera Start: 11/15/23 9:12:00 AM EDT, PO, qAM Start Date: 11/15/23 Status: Ordered tiZANidine 4 mg oral tablet [...] Start Date: 02/04/22 Status: Ordered Mental Status 12/27/23 Barriers to Learning one year None evide nt Mandatory Health Literacy Documentation Yes Health Literacy Communication Barriers N ever Primary Language Cameroonian Problem List Condition Confirmation Course Effective Dates Status H ealth Status Informant Cataracts, bilateral Confirmed Active 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 Osteoarthritis of knees, right Confirmed Active Fibromyalgia Confirmed Active Floppy eyelid syndrome Confirmed Active S/P total knee replacement Confirmed Active High blood pressure Confirmed Active 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 Confirmed Active Numbness and tingling in left hand Confirmed Active Preop examination Confirmed Active 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 thumb partial amputation repair 43266, 2008: B. knee arthroscopy 62 7c-section x 2 Vital Signs Most recent to oldest [Reference Range]: 1 Height 161.8 cm (12/27/23 11:00 AM) Patient Weight 78 kg (12/27/23 11:00 AM) Body Mass Index 29.79 kg/m2 (12/27/23 11:00 AM) Heart Rate 89 bpm (12/27/23 11:00 AM) Blood Pressure 120/76mmHg (12/27/23 11:00 AM) Social History Social History Type Response Smoking Status Never smoked cigaret luda Sex Female Sex Representation Female (finding) Pre-OP H & P * ZENIA Hinton, Leigh: PERFORM Event Display: Pre-OP H & P Authored Date: [id number] Name:YOGI LONG Patient Number:[id number] :1965 Date of Service:12/27/2023 Chief Complaint Pre op Right TKA History of Present Illness Patient is a 58-year-old female here todayfor preoperative history and physicalfor right total knee arthroplasty with Dr. Méndez. She previously had a left TKA 05/03/2022. She has tried PT and cortisone injections. She has elected to proceed with surgical intervention. She has been havinga considerable amount of pain. Review of Systems DeniesRecent illnesses, colds/flu, pneumonia, COVID or COVID exposures; DeniesFevers, chills, malaise; DeniesChest pain, heart palpitations; DeniesShortness of breath, cough; DeniesHeadacheor blurry vision; DeniesAbdominal pain, nausea, vomiting, diarrhea, or urinary symptoms Physical Exam Vitals & Measurements HR:89(Monitored) BP:120/76 SpO2:100% HT:161.8cm WT:78.000kg(Dosing) WT:78kg BMI:29.79 General: Pt is well nourished, seated on the exam table AA&O, in NAD, calm and cooperative during exam HENT: Nontraumatic, no gross deformity, hearing and vision grossly in-tact, PERRL Heart: +S1, +S2, RRR, no murmurs appreciated Lungs: CTABL, no wheezing appreciated Right lower extremity: + bow leg deformity Ligamentous examination exhibits: Stable Mayo 0 mm anterior translation and firm endpoint Posterior drawer stable Varus stress at 0 is stableand 30 has pseudolaxity Valgus stress at 0 and 30 have pseudolaxity Pain from greater trochanter down IT band to Gurdy's tubercle ROM -5 to [address] Hebtained and personally interpreted OA series including bilateral hips to ankles, bilateral AP standing, Bilateral 45 degree flexion PA views, andleftknee lateral and sunrise views done06/14/23 which showevidence of left TKA components in good position with no evidence of loosening.The right knee shows bone on bone medial compartment joint space narrowing,squaring of the tibia,and sclerosis.Patient has neutralalignment on left and 14varusalignment.Incidental finding of hardware left distal fibula and tibia form previous ORIF Dr Méndez reviewed an AP and lateral of the right kneefrom 05/30 which again shows medial joint space narrowing, squaring of tibia, and possibly patella baja. Assessment/Plan 1.Osteoarthritis of knees, right The risks and benefits of surgery as well as the post operative course was explained and discussed with the patient. Written consent obtained. The patient's past medical history, surgeries, social history, medication list, allergies and PDMP were reviewed and confirmed with the patient. Patient ob tained oncology clearanceand was instructed to hold her Hydrea for 1 week. She was see family medicinefor clearance in January. She has appoint with anesthesia today.Preoperative orders were placed. We discussed postoperative pain medications includingoxycodone, tylenol,as well as icing and elevating to control pain. We discussed post operative DVT prophylaxis,Eliquis 2.5mg BID x 6 weeks. Patientmay needthe following additional medications after surgery -stool softener as needed to prevent constipation while on narcotics, Multi- vitamin OR Vitamin C 500mg BID x 2 weeks, Iron 324mg BID x 2 weeks to promote healing. The patient has been scheduled for post operative appointments. Home health and physical therapy prescription peripheral prided. [facility] and I told her to take prescription that was given todayto schedule those appointments. Patient already has a walker.The patient was given a preoperative booklet and we reviewed the most pertinent things leading up to the surgery and the day of rojo ery; including any assisted devices pt may need, when/who to call for the surgery time, where to arrive the day of surgery, NPO after midnight, medications to hold, prepping the skin with CHG to prevent infection etc. All of their questions and concerns were answered today. They were instructedto call our office if they have any further questions or concerns. 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 Senile ectropion of right upper eyelid Traumatic brain injury Procedure/Surgical History Total knee replacement| Service Date: 2022RUL wedge, LULY ectropion repair with LTS, tarsorrhaphy LE| Service Date: 05/22/2021Ectropion correction LLL| Service Date: 06/09/2020TS with spindle LLL| Service Date: 01/10/2020Thumb| Service Date: nkle| Service Date: 2010CESAREAN DELIVERYArthroscopy of kneeUnknownCholecystectomy Medications Home albuterol(albuterol 0.083% for nebulization), 2.5 mg= 3 mL, NEB, q6h, PRN albuterol(Albuterol (Eqv-ProAir HFA)), 2 puff, inhaled, q6h, PRN amphetamine-dextroamphetamine(Adderall XR 30 mg oral capsule, extended release), 30 mg= 1 cap, PO, qAM atomoxetine(Strattera), PO, qAM busPIRone(busPIRone 30 mg oral tablet), 30 mg= 1 tab, PO, qhs cannabis(Medical Marijuana), 1 inh, inhaled, 5x/Day, PRN celecoxib(CeleBREX 200 mg oral capsule), See Instructions, PRN cetirizine(ZyrTEC), 10 mg, PO, Daily ciprofloxacin(ciprofloxacin 500 mg oral tablet), 500 mg= 1 tab, PO, q12h clonazePAM(clonazePAM 1 mg oral tablet), 1 mg= 1 tab, PO, qhs cromolyn ophthalmic(cromolyn 4% ophthalmic solution), 1 drop, both eyes, qid cycloSPORINE ophthalmic(Restasis 0.05% ophthalmic emulsion), 1 drop, both eyes, q12h diclofenac(diclofenac sodium 75 mg oral delayed release tablet), 1 tab, PO, bid, PRN ergocalciferol(Vitamin D2 50,000 intl units (1.25 mg) oral capsule), [address]99 Int_Unit= 1 cap, PO, q7days erythromycin ophthalmic(erythromycin 0.5% ophthalmic ointment), See Instructions, 3 refills fluticasone nasal(fluticasone 27.5 mcg/inh nasal spray), 1 spray, each nostril, Daily, PRN fluticasone-salmeterol(Advair Diskus 250 mcg-50 mcg), 2 puffs, inhaled, Daily hydroCHLOROthiazide(hydroCHLOROthiazide 12.5 mg oral capsule), 12.5 mg= 1 cap, PO, Daily hydroxyurea, 500 mg, PO, bid hydrOXYzine(hydrOXYzine hydrochloride), 25 mg, PO, tid lithium, 650 mg, PO losartan, 100 mg, PO, Daily montelukast(Singulair 10 mg oral tablet), 10 mg= 1 tab, PO, qPM tiZANidine(tiZANidine 4 mg oral tablet), 4 mg= 1 tab, PO, q8h traZODone(traZODone 100 mg oral tablet), 200 mg= 2 tab, PO, qhs Allergies Adhesive bandagerash Latexrash nystatinrash Social History Smoking Status Never smoked cigarettes Tobacco - Denies Tobacco Use Family History Cancer: Unknown. Diabetes type: Unknown. Stroke: Unknown. Health Status Family Member(s) Electronic Signature on File Electronically Reviewed/Signed by: Leigh Hinton PA-C Author Signature Dt/Tm:12/27/2023 03:27 PM Physician [employer] Mechanic, [facility] - [address], [address] [address] Electronically Reviewed/Signed by: Bert Méndez MD Cosigner Signature Dt/Tm: 12/27/2023 04:24 PM [facility] [address], [place] [address] Patient Care team information Care Team Personnel Name: MD Campa Charles S Position: Provider - Terminated Member Role: Lifetime Relationship Address: [facility] [address] [place] [address] Care Team Related Persons Name: MORELIA ANTONIO"
--- NOTE | 2024-01-24 12:24 | Operative Report ---
Post Operative Report Pre & Post Diagnosis Operation Date: 01/24/24 10:00 Pre-Op Diagnosis: Right Knee Osteoarthritis Post-Op Diagnosis: Right Knee Osteoarthritis I identified the patient and participated in the time-out.: Yes Procedure Operation Date: 01/24/24 10:00 Actual Procedures p Right Total Knee Arthroplasty(Right) - Bert Samina Méndez MD Surgeon Dr Méndez Whiskey Proof Reader Terry Hinton PA-C (No fellow avail) Estimated Blood Loss 75 Findings Consistent with Post-Op Diagnosis Specimens right knee bone and syovium Description of Procedure Pt was taken to operating room and properly positioned for procedure. Refer to anesthesia's note for anesthesia used. Pt was given pre-op antibiotics. Prepped and draped in sterile fashion. I was present during the entire case and assisted with positioning, instrumentation, closure and dressings. Please see surgeon's op report for further detail. Pt was awake and transferred to PACU in stable condition I attest to the content of the Intraoperative Record and any orders documented therein. Any exceptions are noted below.
[2024-01-24] MEDS: fentaNYL citrate PF 100 MCG/2 ML VIAL IV PRN (12:28)
--- NOTE | 2024-01-24 12:59 | XRay Report ---
XR knee RT 1 or 2V routine HISTORY: 58 years-old Female Surgical Post Op COMPARISON: 06/14/2023 radiographs TECHNIQUE: 2 views of the right knee FINDINGS: Total joint arthroplasty with patellar resurfacing. Expected postoperative soft tissue swelling with deep tissue air. No acute fracture, dislocation or osseous erosion. IMPRESSION: Total joint arthroplasty with expected postoperative changes. ACT 112: Negative or not required by law. The above report was generated using voice recognition software. It may contain grammatical, syntax o r spelling errors. Electronically signed by: Enrico Carlson M.D. 01/24/2024 12:58 PM
[2024-01-24] MEDS: HYDROmorphone INJ 1 MG/ML SYRINGE IV PRN (13:08)
--- NOTE | 2024-01-24 13:27 | Anesthesiology Progress Note ---
Date of Service January 24, 2024 Anesthesia Post Procedure Vital Signs Vital Signs: Temp Pulse Resp BP Pulse Ox O2 Del Method O2 Flow Rate 01/24/24 13:20 71 19 154/83 H 93 Nasal Cannula 1.5 01/24/24 13:10 66 17 160/65 H 93 Oxymask 1.5 01/24/24 13:00 71 17 162/74 H 96 Oxymask 3 01/24/24 12:50 71 17 172/84 H 95 Oxymask 3 01/24/24 12:40 64 17 182/93 H 95 Oxymask 6 01/24/24 12:30 75 16 147/87 H 95 Oxymask 9 01/24/24 12:25 36.7 C 71 18 173/102 H 96 Oxymask 9 01/24/24 09:12 68 18 96 Room Air 01/24/24 08:25 36.5 C 51 L 20 135/70 100 Room Air Pain Intensity Right Knee: Pain Intensity: 5 Transfer of Care Handoff Completed per policy Notes Mental Status: alert / awake / arousable and participated in evaluation Patient Amnestic to Procedure: Yes Nausea / Vomiting: adequately controlled Pain: adequately controlled Airway Patency, RR, SpO2: stable & adequate BP & HR: stable & adequate Hydration State: stable & adequate Anesthetic Complications: no major complications apparent and Pt Satisfied with anesthetic care
[2024-01-24] MEDS: ORTHO JOINT ANESTHETIC ONE (14:15)
[2024-01-24] MEDS ORDERED: NALOXONE HCL 0.4 MG/1 ML VIAL/CARP IV PRN (14:43)
[2024-01-24] MEDS ORDERED: diphenhydrAMINE Capsule 25 MG CAP PO PRN (14:43)
[2024-01-24] MEDS ORDERED: FLUTICASONE PROPIONATE NA SPR 16 GM BTL PRN (14:43)
[2024-01-24] MEDS ORDERED: ALBUTEROL HFA 8 GM INHALER INH PRN (14:43)
[2024-01-24] MEDS ORDERED: MAGNESIUM HYDROXIDE SUSP 30 ML UDC PO PRN (14:43)
[2024-01-24] MEDS ORDERED: bisacodyL 10 MG SUPP PR PRN (14:43)
[2024-01-24] MEDS ORDERED: SUMAtriptan succinate 25 MG TAB PO PRN (14:43)
[2024-01-24] MEDS: PERFLUOROHEXYLOCTANE OP SCH ×2 (15:09→20:53)
[2024-01-24] MEDS: oxyCODONE HCL IR 5 MG TAB (IMMEDIATE RELEASE) PO PRN (15:14)
[2024-01-24] MEDS: Scopolamine CHECK PATCH PLACEMENT SCH (15:15)
[2024-01-24] MEDS ORDERED: ALBUTEROL 0.083% NEBU SOLN 3 ML VIAL INH PRN (15:26)
[2024-01-24] MEDS: FERROUS GLUCONATE 324 MG TAB PO SCH (17:27)
[2024-01-24] MEDS: ASCORBIC ACID 500 MG TAB PO SCH (17:27)
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
[2024-01-24] MEDS: NICOTINE 21 MG/24 HR TDSY TD SCH (18:59)
--- NOTE | 2024-01-24 19:25 | Orthopedic Progress Note ---
Date of Service January 24, 2024 Assessment & Plan (1) Osteoarthritis: Plan: POD #0 s/p R TKA, doing as well as expected. Resume diet. WBAT with walker. OOB to chair. Complete 24 hrs Ancef. Continue pain control. Check labs tomorrow. DVT prophylaxis: TEDs 3 weeks, foot pumps while in hospital, Eliquis for 6 weeks. PT/OT. D/C planning. Dressing to be changed POD 2-3 to Silverlon type dressing. Admission and Anticipated Discharge Date Admission Date: January 24, 2024 Subjective Doing well Physical Exam Physical Exam: RLE: Sensation to light touch intact. BCR < 2 sec. Able to move toes and ankle & preform straight leg raise. Calf soft and non-tender. Dressing is clean, dry, intact. Results & Data Vital Signs (Past 12 Hours) Vital Signs Temp Pulse Pulse Resp BP BP Pulse Ox 01/24/24 17:26 36.7 C 69 16 132/79 97 01/24/24 16:30 36.7 C 78 16 129/72 95 01/24/24 15:18 78 18 154/81 H 96 01/24/24 15:00 01/24/24 14:52 36.7 C 70 16 142/80 H 93 01/24/24 14:20 36.8 C 78 18 145/84 H 94 01/24/24 14:00 75 20 165/86 H 97 01/24/24 13:45 36.5 C 74 20 162/70 H 95 01/24/24 13:30 70 18 141/81 H 94 01/24/24 13:20 71 19 154/83 H 93 01/24/24 13:10 66 17 160/65 H 93 01/24/24 13:00 71 17 162/74 H 96 01/24/24 12:50 71 17 172/84 H 95 01/24/24 12:40 64 17 182/93 H 95 01/24/24 12:30 75 16 147/87 H 95 01/24/24 12:25 36.7 C 71 18 173/102 H 96 01/24/24 09:12 68 18 96 01/24/24 08:25 36.5 C 51 L 20 135/70 100 O2 Del Method O2 Flow Rate 01/24/24 17:26 Room Air 01/24/24 16:30 Room Air 01/24/24 15:18 Room Air 01/24/24 15:00 Room Air 01/24/24 14:52 Room Air 01/24/24 14:20 Room Air 01/24/24 14:00 Nasal Cannula 1.5 01/24/24 13:45 Nasal Cannula 1.5 01/24/24 13:30 Nasal Cannula 1.5 01/24/24 13:20 Nasal Cannula 1.5 01/24/24 13:10 Oxymask 1.5 01/24/24 13:00 Oxymask 3 01/24/24 12:50 Oxymask 3 01/24/24 12:40 Oxymask 6 01/24/24 12:30 Oxymask 9 01/24/24 12:25 Oxymask 9 01/24/24 09:12 Room Air 01/24/24 08:25 Room Air
[2024-01-24] MEDS: LITHIUM CARBONATE 300 MG TAB PO SCH (20:53)
[2024-01-24] MEDS: clonazePAM 1 MG TAB PO SCH (20:53)
[2024-01-24] MEDS: HYDROXYUREA 500 MG CAP PO SCH (20:53)
[2024-01-24] MEDS: OLANZapine 10 MG TAB PO SCH (20:53)
[2024-01-24] MEDS: traZODone HCL 50 MG TAB PO SCH (20:53)
[2024-01-24] MEDS: DOCUSATE SODIUM 100 MG CAP PO SCH (20:53)
[2024-01-24] MEDS: SENNA 8.6 MG TAB PO SCH (20:53)
[2024-01-24] MEDS: MONTELUKAST SODIUM 10 MG TABLET PO SCH (20:53)
[2024-01-25] MEDS: ONDANSETRON INJ 2 MG/ML 2 ML VIAL IV PRN (04:07)
[2024-01-25] MEDS: HYDROmorphone INJ 0.5 MG/0.5 ML SYR IV PRN (04:11)
[2024-01-25 06:18] LABS: Hematocrit (blood only) 32.6 % (37.0-47.0); Hemoglobin 10.8 g/dl (12.0-16.0); Mean Corpuscular Hemoglobin 36.4 pg (25.0-34.0); Mean Corpuscular Hgb Conc 33.1 g/dL (32.0-36.0); Mean Corpuscular Volume 109.8 fL (80.0-100.0); Platelet Count 318 K/uL (130-400); RDW Coefficient of Variation 11.9 % (11.5-14.5); RDW Standard Deviation 48.2 fL (36.4-46.3); Red Blood Count 2.97 M/uL (4.20-5.40); White Blood Count 16.52 K/ul (4.8-10.8)
[2024-01-25 06:32] LABS: Calcium 8.8 mg/dl (8.6-10.3); Creatinine Clr Calc Pharmacy 67.8 ml/min; Potassium 3.8 mmol/L (3.5-5.1)
--- NOTE | 2024-01-25 06:37 | Orthopedic Progress Note ---
Date of Service January 25, 2024 Assessment & Plan (1) Osteoarthritis: Plan: POD #1 s/p R TKA, doing as well as expected. Resume diet. WBAT with walker. OOB to chair. Complete 24 hrs Ancef. Continue pain control. DVT prophylaxis: TEDs 3 weeks, foot pumps while in hospital, Eliquis for 6 weeks. PT/OT. D/C planning home later today if passes PT and pain controlled with oral pain meds. Dressing to be changed POD 2-3 to Silverlon type dressing. Admission and Anticipated Discharge Date Admission Date: January 24, 2024 Subjective Doing well Physical Exam Physical Exam: RLE: Sensation to light touch intact. BCR < 2 sec. Able to move toes and ankle & preform straight leg raise. Calf soft and non-tender. Dressing is clean, dry, intact. Results & Data Vital Signs (Past 12 Hours) Vital Signs Temp Pulse Resp BP Pulse Ox O2 Del Method 01/25/24 03:09 36.9 C 73 16 133/76 96 Room Air 01/24/24 23:03 36.8 C 76 18 121/73 96 Room Air 01/24/24 19:36 36.8 C 71 18 142/80 H 98 Room Air Laboratory Results Laboratory Results WBC 16.52 K/ul (4.8-10.8) H 01/25/24 05:44 RBC 2.97 M/uL (4.20-5.40) L 01/25/24 05:44 Hgb 10.8 g/dl (12.0-16.0) L 01/25/24 05:44 Hct 32.6 % (37.0-47.0) L 01/25/24 05:44 MCV 109.8 fL (80.0-100.0) H 01/25/24 05:44 MCH 36.4 pg (25.0-34.0) H 01/25/24 05:44 MCHC 33.1 g/dL (32.0-36.0) 01/25/24 05:44 RDW Std Deviation 48.2 fL (36.4-46.3) H 01/25/24 05:44 RDW Coeff of [place] 11.9 % (11.5-14.5) 01/25/24 05:44 Plt Count 318 K/uL (130-400) 01/25/24 05:44 MPV 10.0 fL (9.4-12.4) 01/25/24 05:44 Sodium 138 mmol/L (136-145) 01/25/24 05:44 Potassium 3.8 mmol/L (3.5-5.1) 01/25/24 05:44 Chloride 105 mmol/L (98-107) 01/25/24 05:44 Carbon Dioxide 29 mmol/L (21-32) 01/25/24 05:44 Anion Gap 4 (3-11) 01/25/24 05:44 BUN 15 mg/dl (6-23) 01/25/24 05:44 Creatinine 0.94 mg/dl (0.6-1.2) 01/25/24 05:44 Est Cr Clr Drug Dosing 67.8 ml/min 01/25/24 05:44 eGFR 70.33 01/25/24 05:44 BUN/Creatinine Ratio 16.0 (10-20) 01/25/24 05:44 Glucose 147 mg/dl (70-99(Fasting)) H 01/25/24 05:44 Calcium 8.8 mg/dl (8.6-10.3) 01/25/24 05:44 Impressions Knee X-Ray 01/24/24 12:33 XR knee RT 1 or 2V routine HISTORY: 58 years-old Female Surgical Post Op COMPARISON: 06/14/2023 radiographs TECHNIQUE: 2 views of the right knee FINDINGS: Total joint arthroplasty with patellar resurfacing. Expected postoperative soft tissue swelling with deep tissue air. No acute fracture, dislocation or osseous erosion. IMPRESSION: Total joint arthroplasty with expected postoperative changes. ACT 112: Negative or not required by law. The above report was generated using voice recognition software. It may contain grammatical, syntax or spelling errors. Electronically signed by: Enrico Carlson M.D. 01/24/2024 12:58 PM
[2024-01-25 08:10] VITALS: BP 129/65; PULSE 71; RESP 18; TEMP 98.2; O2SAT 97
[2024-01-25] MEDS: OMEGA-3 (PURIFIED FISH OIL) 1 GM CAP PO SCH (08:32)
[2024-01-25] MEDS: DEXTROAMPHETAMINE/AMPHETAMINE IR 10 MG TAB PO SCH (08:32)
[2024-01-25] MEDS: clonazePAM 0.5 MG TAB PO SCH (08:32)
[2024-01-25] MEDS: CEROVITE ADV FORMULA TAB PO SCH (08:33)
[2024-01-25] MEDS ORDERED: hydroCHLOROthiazide 25 MG TAB PO SCH (09:00)
[2024-01-25] MEDS ORDERED: [UNRECOGNIZED DRUG - OTHER] PO SCH (09:00)
[2024-01-25] MEDS ORDERED: LOSARTAN POTASSIUM 50 MG TAB PO SCH (09:00)
[2024-01-25] MEDS: LOSARTAN POTASSIUM 50 MG TAB PO SCH (09:25)
[2024-01-25] MEDS: tiZANidine HCL 4 MG TABLET PO PRN (09:25)
[2024-01-25] MEDS: hydroCHLOROthiazide 25 MG TAB PO SCH (09:25)
--- NOTE | 2024-01-25 09:53 | Discharge Summary ---
Date of Service January 25, 2024 Principal Diagnosis s/p right total knee arthroplasty Discharge Data Allergies Allergy/AdvReac Type Severity Reaction Status Date / Time adhesive tape Allergy Unknown HIVES ON Verified 01/24/24 08:18 CHEST/ITCHY nystatin AdvReac Intermediate Rash Verified 01/24/24 08:18 latex AdvReac Unknown HX CHAPPED Verified 01/24/24 08:18 SKIN Consultations 01/19/24 14:39 Consult Hospitalist Routine Procedures Performed Operation Date: 01/24/24 10:00 Actual Procedures p Right Total Knee Arthroplasty(Right) - Bert Méndez MD Hospital Course (1) Osteoarthritis: Patient underwent a right total knee arthroplasty on 01/24/2024 and had an uneventful course while in the hospital. She was observed overnight and evaluated the following morning and felt well enough to be discharged home. Her labs demonstrated a leukocytosis at 16.52 likely secondary to surgery. She has no evidence of infection, vital signs stable, afebrile.. Hemoglobin 10.8, stable. No other lab concerns. Her postoperative x-ray demonstrated expected findings. She was evaluated by physical therapy and occupational therapy on 01/25/2024 and was cleared to be discharged home with home health. She will be staying with her mother in [place] for several days and then will transition home with home health. She coordinated with case management on this. She has a walker at home. Dressing change appointment scheduled for 01/26/2024. She believes a dressing in place until then. She will use Tylenol and oxycodone for pain control. She will be on Eliquis for 6 weeks for DVT prophylaxis. These prescriptions were sent to the pharmacy today. She was advised to not take the oxycodone at the same time as trazodone or Zanaflex. Supplement with iron and vitamin C over the next 2 weeks. TEDs for 3 weeks She will perform daily exercises as instructed by PT. Instructed her to contact the office with any questions or concerns. All questions were answered. Total Time Total Time Spent Total Time Spent (In Minutes): 25 Discharge Plan Discharge Items Patient Disposition: Home - Home Health Services Reason For Visit: POST OP RTKA Discharge Diagnosis: s/p right total knee arthroplasty Condition on Discharge: Good Activity: Per Instructions section Non-emergency contact: Surgeon Call non-emergency contact if: your pain is not controlled, your temperature is above 101 and your wound has increased drainage Follow-up/Referrals: Victoriano Han D.O. [Primary Care Provider] - Leigh Hinton PA-C [Physician Musical Instrument Supervisor] - 01/26/24 1:00 pm Diet: Heart Healthy Addtl Attending Provider Instructions: POST OPERATIVE DISCHARGE INSTRUCTIONS Pain Control Please take the follow medications for pain control, as well as icing and elevating your operative extremity. Pain after surgery is to be expected. We may not be able to take away all of your pain, but the goal is to make your pain manageable - Extra strength Tylenol 1,000mg (2 tabs) every 8 hours - Oxycodone 5-10mg (1-2tabs) every 4-6 hours as needed DVT Prophylaxis With any surgery, you are at increased risk for blood clots. Please take the follow measures to prevent blood clots and read the warning signs to watch for. Please take the follow anticoagulant: Eliquis twice daily for 6 weeks. If you were given JAVI compression stockings, these are to be worn on both legs for 18-20 hours daily for 3 weeks Warning signs: Calf pain, lower extremity swelling, numbness/tingling, skin discoloration, increased pain, shortness of breath, chest pain. Please contact our office if you experience any of these symptoms or call 911 if you are having trouble breathing. Ice Ice your operative site at least 5 times a day for 15-30 minutes at a time, for the first three days, then as needed. This will help to reduce swelling and pain. Make sure you have a thin cloth between the ice or cooling unit and your skin to prevent vickers bite. This is especially important if you received a nerve block. Diet/Nausea/Vomiting Start by drinking clear liquids and eating crackers. If you can tolerate this, then you may resume your normal diet. If you feel nauseated or vomit, take Zofran/ondansetron (if prescribed). Please call our office if you have intractable nausea or vomiting, or, if after hours, you may go to the Emergency Room for help. Surgical Dressing Please leave on any dressing until you are seen by either PT or PA for your post-operative appointment, unless you are otherwise instructed. If there are any issues with your dressing please give our office a call. Weight bearing, Range of Motion, Activity You will be weight bearing as tolerated on your operative site. you may use crutches or walker to assist in ambulation. Physical therapy You will do your rehab for the first two weeks with home health. Then you will begin outpatient physical therapy. It is very important you follow your rehab protocol and do your exercises as instructed by your provider and physical therapist. Wound care and showering We will inspect your wound at your first post-operative visit. It is normal to see some dried blood on the dressing. Do not remove your dressing, paper strips or sutures yourself unless otherwise instructed. Showering is allowed post op day 3. Do not scrub or remove any dressings, unless you are otherwise instructed. Once your dressing is changed in the office to the water-resistant dressing. You can shower with this on as long as all the edges are in tact. To promote wound healing, we recommend taking a multi-vitamin, or taking 500mg Vitamin C supplement twice a day for two weeks and 325mg Iron supplement twice a day for two weeks. This is especially important if you had a total joint replacement. Constipation Constipation is a common side effect of narcotic pain medication, dehydration after surgery and iron supplement (if you were instructed to begin that after surgery). We recommend purchasing an [id number]-[id number] laxative such as Milk of Magnesia, Colace, Dulcolax, Miralax or Senna from a local pharmacy, and taking it as instructed. Stay hydrated and you may increase your fiber in your diet as well. Call our clinic if any questions. Driving You may not drive while taking narcotic pain medication or while in a cast, splint, sling or brace. Driving will be discussed at your first post op appointment Return to Work Your return to work depends on what surgery was done and what type of work you do. Please bring any paperwork your employer needs completed to your first post-operative visit. Also, bring a description of your job duties, as this helps us to understand what risks you may face at work. Travel Avoid long distance travel (greater than 1 hour) in airplanes and cars for the first 6 weeks after surgery. Follow-up Please attend your post operative appointments as scheduled. At these appointments, we may do dressing change and remove any sutures/alfredo/Zip-line 10-14 days after your surgery. If you do not know your post operative appointment dates or times please call the office at [phone] When to call the office It is normal to have swelling and bruising in the limb that was operated on. This will improve with time. It is also normal to have fevers for the first 2 days after surgery. Reasons you should call your doctor include: Uncontrolled pain; Nausea, vomiting, or constipation that does not improve with medication; Fevers over 101.5, chills, sweats; Drainage or bleeding from the wound; Foul odor; Spreading areas of redness; calf pain or swelling, shortness of breath, chest pain; Any other concerns You may call the office at [phone]. If it is a medical emergency please call 911. Pending Studies at Discharge: No Stand-Alone Forms: My [facility] [employer], Smoking Cessation Medications and DC Order Prescriptions: New acetaminophen [Tylenol Extra Strength] 500 mg Tablet 1,000 mg PO Q8 Qty: 30 0RF ascorbic acid (vitamin C) [Vitamin C] 500 mg Tablet 500 mg PO BIDM Qty: 30 0RF ferrous gluconate 324 mg (38 mg iron) Tablet 324 mg PO BIDM Qty: 30 0RF oxycodone 5 mg tablet 5 - 10 mg PO Q4H PRN (Reason: pain) Qty: 18 0RF Rx Instructions: Take 1 tab for pain 1-5 Take 2 tabs for pain 6-10 Do not take at the same time as zanaflex or trazodone Eliquis 2.5 mg tablet 2.5 mg PO BID Qty: 84 2RF Continued hydroxyurea 500 mg Capsule 500 mg PO BID Rx Instructions: 1300 and 2200 tizanidine 4 mg Tablet 4 mg PO Q8H PRN (Reason: muscle spasms) trazodone 100 mg Tablet 150 mg PO HS hydrochlorothiazide 25 mg Tablet 25 mg PO QAM ergocalciferol (vitamin D2) [Vitamin D2] 1,250 mcg (50,000 unit) Capsule 1,250 mcg PO WK Patient Comments: sundays albuterol sulfate 90 mcg/actuation Hfa Aerosol Inhaler 1 inh INHALATION UD PRN (Reason: allergies) Air Shield 1 unit 1 tab PO QAM albuterol sulfate 1.25 mg/3 mL Solution For Nebulization 1.25 mg INHALATION QID PRN (Reason: sob) dextroamphetamine-amphetamine 10 mg Tablet 10 mg PO UD Rx Instructions: 30 mg in the AM and 10 mg at 1300 montelukast 10 mg Tablet 10 mg PO HS multivit with min-folic acid [Multivitamin Gummies] 200 mcg Tablet,Chewable 1 tab PO QAM polyethylene glycol 3350 [Miralax] 17 gram powder in packet 17 g PO QAM sumatriptan succinate 25 mg tablet 25 - 50 mg PO DAILY PRN (Reason: migraine headache) fluticasone propionate 50 mcg/actuation spray,suspension 1 spray NA DAILY PRN (Reason: allergies) Miebo (PF) 100 % drops 1 drp ophthalmic (eye) TID losartan 50 mg tablet 50 mg PO QAM ondansetron 4 mg Tablet,Disintegrating 4 mg PO Q6H PRN (Reason: Nausea) clonazepam 0.5 mg Tablet 0.5 mg PO QAM Qty: 30 0RF clonazepam 1 mg Tablet 1 mg PO HS Qty: 30 0RF lithium carbonate 600 mg capsule 600 mg PO HS Qty: 30 0RF olanzapine 10 mg Tablet 10 mg PO HS Qty: 30 0RF Held Medical Marijuana Card 1 dose UD PRN (Reason: ANXIETY/PAIN) Hold Instructions: Resume on 02/22/24. omega-3 fatty acids Capsule 1,000 mg PO QAM Hold Instructions: Resume on 03/07/24. [place]/Other Patient Handouts: Apixaban Oral Tablet, Oxycodone Oral Tablet, Knee Replacement Total Dc Admission Data Admit Date/Time: 01/24/24 12:33 Attending Provider: Bert Méndez Admit Provider: Bert Méndze Primary Care Provider: Victoriano Han Other Providers: Gilberto Pierre [facility],Home Healthcare Other Interventions: Discharge Summary Assessment (RN) Last Done: 01/25/24 09:47
[2024-01-25] MEDS: APIXABAN 2.5 MG TAB PO ONE (11:08)
[2024-01-25] MEDS ORDERED: DEXTROAMPHETAMINE/AMPHETAMINE IR 10 MG TAB PO SCH (13:00)
[2024-01-29] MEDS ORDERED: ERGOCALCIFEROL 1250 MCG (50,000 UNITS) CAP PO SCH (09:00)
== END 2024-01-25 12:04 | disposition home health service (06) ==
LOC: 3E 07:28 → ASU 07:28